=== PATIENT | female | born 1965 | race Caucasian/White ===

== ENCOUNTER 2017-01-10 06:51 | Day surgery (SDC) | payer MEDICAID ==
[~2017-01-10 06:51] MED LIST: Lactated Ringers 1,000 ML IV SCH; Lidocaine 1%/Sod Bicarbonate in NS 8.4% 1 ML Syringe IV PRN; Sodium Chloride 0.9% 10 ML Syringe FLUSH PRN
--- NOTE | 2017-01-10 07:24 | PCM.PREANE ---
Preanesthetic Assessment - Anesthesia/Transfusion/Family Hx Anesthesia History: Prior Anesthesia Without Reaction Family History of Anesthesia Reaction: No Transfusion History: No Prior Transfusion(s) - Review of Systems General: No Symptoms Pulmonary: No Symptoms, Cough (asthma bronchitis) Cardiovascular: No Symptoms, Other (heart dr said heart beats too fast and too slow at times) Gastrointestinal: Abdominal Pain, Diarrhea (usually) Neurological: Seizure (not on meds- she flushed them) Other: Reports: Diabetes, Liver Problems (fatty ) - Physical Assessment NPO Status Date: 01/09/17 NPO Status Time: 21:00 Pulse: 81 O2 Sat by Pulse Oximetry: 94 Respiratory Rate: 16 Blood Pressure: 135/73 Temperature: 99 F Height: 5 ft 4 in Weight: 115.666 kg ASA Class: 3 Mental Status: Alert & Oriented x3 Airway Class: Mallampati = 1 Dentition: Reports: Dentures (top) Thyro-Mental Finger Breadths: 3 Mouth Opening Finger Breadths: 3 ROM/Head Extension: Full Lungs: Clear to Auscultation, Normal Respiratory Effort, Decreased Breath Sounds Cardiovascular: Regular Rate, Regular Rhythm - Allergies Allergies/Adverse Reactions: Allergies Allergy/AdvReac Type Severity Reaction Status Date / Time Iodinated Contrast- Oral and Allergy Severe Airway Verified 01/07/17 12:59 IV Dye Tightness [Iodinated Contrast Media - IV Dye] alcohol Allergy Cannot Verified 01/07/17 12:59 Remember amoxicillin trihydrate Allergy Airway Verified 01/07/17 12:59 [From Augmentin] Tightness aspirin Allergy Airway Verified 01/07/17 12:59 Tightness bee venom protein (honey bee) Allergy Cannot Verified 01/07/17 12:59 Remember cefuroxime axetil Allergy Airway Verified 01/07/17 12:59 [From Ceftin] Tightness cephalexin monohydrate Allergy Airway Verified 01/07/17 12:59 [From Keflex] Tightness ciprofloxacin [From Cipro] Allergy Airway Verified 01/07/17 12:59 Tightness ciprofloxacin HCl Allergy Airway Verified 01/07/17 12:59 [From Cipro] Tightness doxycycline Allergy Airway Verified 01/07/17 12:59 Tightness honey Allergy Hives Verified 01/07/17 12:59 latex Allergy Airway Verified 01/07/17 12:59 Tightness metronidazole [From Flagyl] Allergy Airway Verified 01/07/17 12:59 Tightness nitrofurantoin Allergy Airway Verified 01/07/17 12:59 [From Macrobid] Tightness nitrofurantoin Allergy Airway Verified 01/07/17 12:59 macrocrystalline Tightness [From Macrobid] Penicillins Allergy Airway Verified 01/07/17 12:59 Tightness perfume Allergy Cannot Verified 01/07/17 12:59 Remember potassium clavulanate Allergy Airway Verified 01/07/17 12:59 [From Augmentin] Tightness prednisone Allergy Cannot Verified 01/07/17 12:59 Remember Gnfsgti-Muj-Yjm Reductase Allergy Cannot Verified 01/07/17 12:59 Inhibitor Remember strawberry [[place]] Allergy Airway Verified 01/07/17 12:59 Tightness sulfamethoxazole Allergy Airway Verified 01/07/17 12:59 [From Bactrim] Tightness tetracycline [Tetracycline] Allergy Airway Verified 01/07/17 12:59 Tightness trimethoprim [From Bactrim] Allergy Airway Verified 01/07/17 12:59 Tightness wool Allergy Cannot Verified 01/07/17 12:59 Remember deodorants Allergy Cannot Uncoded 01/07/17 12:59 Remember sausage Allergy Cannot Uncoded 01/07/17 12:59 Remember shampoo Allergy Cannot Uncoded 01/07/17 12:59 Remember - Blood Blood Available: No - Anesthesia Plan Pre-Op Medication Ordered: Beta Elpidio Beta Elpidio: Metoprolol Med Last Dose Date: 01/10/17 Med Last Dose Time: 06:00 - Acknowledgements Anesthesia Type Planned: MAC Pt an Appropriate Candidate for the Planned Anesthesia: Yes Alternatives and Risks of Anesthesia Discussed w Pt/Guardian: Yes Pt/Guardian Understands and Agrees with Anesthesia Plan: Yes PreAnesthesia Questionnaire HEENT History: Reports: Impaired Vision, Other (See Below) Other HEENT History: patient has upper denture and glasses Cardiovascular History: Reports: High Cholesterol, Hypertension, Other (See Below) Other Cardiovascular History: chest pain, peripheral artery disease Respiratory History: Reports: Asthma, COPD, SOB Gastrointestinal History: Reports: GERD, Other (See Below) Other Gastrointestinal History: gastric ulcers, rectal bleeding, abdominal pain , fatty liver infiltrate Genitourinary History: Reports: Other (See Below) Other Genitourinary History: perineal pain 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 Musculoskeletal History: Reports: Fibromyalgia, Other (See Below) Other Musculoskeletal History: carpal tunnel syndrome Neurological History: Reports: Migraines, Neuropathy, Peripheral, Seizure Psychiatric History: Reports: Panic Attack Endocrine/Metabolic History: Reports: Diabetes, Type II Hematologic History: Reports: None Immunologic History: Reports: None Oncologic (Cancer) History: Reports: Cervix Dermatologic History: Reports: None - Past Surgical History Head Surgeries/Procedures: Reports: None GI Surgical History: Reports: None Female Surgical History: Reports: Lithotripsy/ESWL, Tubal Ligation, Other ( See Below) (kidney surgery-stents - cancer cut off cervix- IUD surgically removed) Neurological Surgical History: Reports: None Oncologic Surgical History: Reports: None Dermatological Surgical History: Reports: None - SUBSTANCE USE Smoking Status *Q: Former Smoker (quit 3 weeks ago) Tobacco Use Within Last Twelve Months: Cigarettes Second Hand Smoke Exposure: Yes Days Per Week of Alcohol Use: 0 Recreational Drug Use History: No - HOME MEDS Home Medications: Home Meds Ranitidine [Zantac] 150 mg PO DAILY #4 tab 09/24/15 [Rx] Albuterol Sulfate 1 dose INH QID 01/07/17 [History] Albuterol Sulfate [Proair Hfa] 2 puff INH Q4H PRN 01/07/17 [History] DULoxetine [Cymbalta] 30 mg PO DAILY 01/07/17 [History] EPINEPHrine [Epipen] 1 dose IM ASDIRECTED PRN 01/07/17 [History] Fish Oil/[place]-3 Fatty Acids [Fish Oil 1,000 MG] 2 g PO DAILY 01/07/17 [History] Furosemide [Lasix] 20 mg PO DAILY PRN 01/07/17 [History] Gabapentin [Neurontin] 900 mg PO TID 01/07/17 [History] Inulin [Fiber Choice] 2 tab PO DAILY 01/07/17 [History] Metoprolol Tartrate [Lopressor] 100 mg PO BID 01/07/17 [History] Varenicline Tartrate [Chantix] 1 tab PO ASDIRECTED 01/07/17 [History] atorvaSTATin [Lipitor] 40 mg PO DAILY 01/07/17 [History] diphenhydrAMINE HCl [Benadryl] 50 mg PO BEDTIME 01/07/17 [History] sitaGLIPtin Phos/Metformin HCl [Janumet 50-1,000 MG] 1 tab PO BID 01/07/17 [ History] - CURRENT (IN HOUSE) MEDS Current Meds: Current Medications Lactated Ringer's (Ringers, Lactated) 1,000 mls @ 125 mls/hr IV ASDIRECTED BETTINA Stop: 01/10/17 23:00 Lidocaine/Sodium Bicarbonate (Buffered Lidocaine 1% In Ns 8.4%) 0.25 ml IV ONETIME PRN PRN Reason: Prior to IV Start Stop: 01/10/17 18:00 Sodium Chloride (Saline Flush) 10 ml FLUSH ASDIRECTED PRN PRN Reason: Keep Vein Open Stop: 01/10/17 18:00
[2017-01-10] MEDS ORDERED: Lidocaine 1% 4 ML ONE (07:58)
[2017-01-10] MEDS ORDERED: fentaNYL 100 MCG/2 ML SDV ONE (07:59)
[2017-01-10] MEDS ORDERED: Midazolam 1 MG/ML 2 ML SDV ONE (07:59)
[2017-01-10] MEDS ORDERED: Propofol 200 MG/20 ML SDV ONE ×3 (07:59→09:00)
[2017-01-10] MEDS ORDERED: Ondansetron 4 MG/2 ML SDV IVPUSH PRN (08:54)
--- NOTE | 2017-01-10 08:55 | PCM48HPAN ---
Post Anesthesia Note - EVALUATION WITHIN 48HRS OF ANESTHETIC Vital Signs in Normal Range: Yes Patient Participated in Evaluation: Yes Respiratory Function Stable: Yes Airway Patent: Yes Cardiovascular Function Stable: Yes Hydration Status Stable: Yes Pain Control Satisfactory: Yes Nausea and Vomiting Control Satisfactory: Yes Mental Status Recovered: Yes
[2017-01-10 10:00] VITALS: BP 111/77
--- NOTE | 2017-01-10 13:35 | OR ---
DATE OF OPERATION: 01/10/2017 SURGEON: Santosh Reynoso MD PREOPERATIVE DIAGNOSIS: Gastroesophageal reflux disease. POSTOPERATIVE DIAGNOSIS: Gastroesophageal reflux disease. OPERATION PERFORMED: Esophagogastroduodenoscopy with biopsy. FINDINGS: Normal second portion of the duodenum, duodenal bulb, and pyloric channel. Antrum was only incompletely seen, would not expand, felt to be due to her obesity. A blind biopsy was taken of the antrum. Body, cardia and fundus of the stomach were viewed and J-maneuver was done and did not show any pathology. A sliding hiatal hernia was noted. GE junction was located at 40 cm and did not see any acute process. Biopsies of GE junction were taken. The rest of the esophagus was normal. ANESTHESIA: Procedure done under IV sedation. DESCRIPTION OF PROCEDURE: The patient was taken to the operating room, placed in a supine position, connected to monitoring equipment, given IV sedation, and placed in left lateral position. Bite block was inserted and video Olympus gastroscope placed in a posterior oropharynx, under direct vision threaded past the cricopharyngeus, down the esophagus and into the stomach. The stomach was insufflated, and the scope passed through the pylorus to the second portion of the duodenum. Second portion of the duodenum, duodenal bulb, and pyloric channel were unremarkable. Antrum would not completely expand. Biopsies were taken. Body, cardia, and fundus of the stomach were viewed and J-maneuver was performed showing a sliding hiatal hernia. Scope was withdrawn to the GE junction, which did not show any acute disease, and this was biopsied. This was located at 40 cm. Rest of the esophagus viewed as the scope was withdrawn. The patient tolerated the procedure. Specimen sent to pathology in a labeled container. IV sedation continued for colonoscopy. ESTIMATED BLOOD LOSS: MMODAL /[id number]
--- NOTE | 2017-01-10 13:35 | OR ---
DATE OF OPERATION: 01/10/2017 SURGEON: Santosh Reynoso MD PREOPERATIVE DIAGNOSIS: Change in bowel habits. POSTOPERATIVE DIAGNOSIS: Change in bowel habits. OPERATION PERFORMED: Colonoscopy to the ileocecal valve. FINDINGS: Occasional diverticula in the sigmoid colon. Did not see any angiodysplasias, neoplasias, large tumor masses, ulcerations, or notable hemorrhoids. ANESTHESIA: Procedure done under IV sedation. DESCRIPTION OF PROCEDURE: The patient was taken to the operating room, having been given IV sedation, connected to monitoring equipment for upper GI endoscopy. The sedation was continued for colonoscopy. She was placed in the left lateral position. Perianal area was unremarkable. Rectal exam showed good sphincter tone. A video Olympus colonoscope was then introduced into the rectum and threaded up to the ileocecal valve. Could not introduce it into the cecum because cecum was filled full of colonic effluence with a lot of solid fecal matter that could not be aspirated. The prep was poor. [place] cleansing score grade B, especially in the cecum and in the rectum. Scope was then slowly withdrawn showing the ileocecal valve, the ascending colon, transverse colon, descending colon, sigmoid colon, and rectum. The patient tolerated the procedure and was sent to recovery room in a stable condition to be followed up in the clinic. ESTIMATED BLOOD LOSS: MMODAL /[id number]
== END 2017-01-10 09:45 | disposition home or self-care (01) ==
LOC: JD.SDS 06:51
PROVIDERS: ATTEND Surgery
DX: K57.30 Diverticulosis of large intestine without perforation or abscess without bleeding (principal); K44.9 Diaphragmatic hernia without obstruction or gangrene; I10 Essential (primary) hypertension; E11.9 Type 2 diabetes mellitus without complications; K21.9 Gastro-esophageal reflux disease without esophagitis; J44.9 Chronic obstructive pulmonary disease, unspecified; E78.00 Pure hypercholesterolemia, unspecified; Z88.0 Allergy status to penicillin; Z88.1 Allergy status to other antibiotic agents; Z88.8 Allergy status to other drugs, medicaments and biological substances; Z91.041 Radiographic dye allergy status; Z91.030 Bee allergy status; Z91.040 Latex allergy status; Z91.018 Allergy to other foods; Z91.09 Other allergy status, other than to drugs and biological substances; Z98.890 Other specified postprocedural states; Z87.891 Personal history of nicotine dependence; Z98.51 Tubal ligation status; Z79.4 Long term (current) use of insulin; Z79.899 Other long term (current) drug therapy
CPT/HCPCS: 43239; 45378; J2250; J3010; J7120; 00810; J2704

== ENCOUNTER → 2017-03-09 | Day surgery (SDC) | payer MEDICAID ==
[~2017-03-09] MED LIST changes: +Albuterol 0.083% 2.5 MG/3 ML Neb Soln NEB ONE; +Albuterol 6.7 GM Inhaler INH PRN; +Albuterol/Ipratropium 3.0-0.5 MG/3 ML Neb Soln NEB PRN; +Clindamycin Phosphate 900 MG in Dextrose 5% in Water 100 ML IV ONE; +DULOXETINE 30 MG PO SCH; +Dexamethasone 4 MG/ML 5 ML MDV ONE; +Gabapentin 300 MG Cap PO SCH; +Gentamicin 400 MG in Dextrose 5% in Water 100 ML IV ONE; +Haloperidol Lactate 5 MG/ML SDV IVPUSH ONE; +JANUMET PO SCH; +Ketamine 500 mg/10 ML MDV ONE; +Ketorolac 30 MG/ML SDV ONE; +Lactated Ringers 1,000 ML ONE; +Lidocaine 1% with EPINEPHrine 1:100,000 20 ML MDV ONE; +Midazolam 1 MG/ML 2 ML SDV IVPUSH PRN; +Midazolam 1 MG/ML 2 ML SDV ONE; +Neostigmine Methylsulfate 1 MG/ML 5 ML Syringe ONE; +Non-Formulary Medication 1 Each (Sitagliptin Phos/Metformin Hcl [Janumet 50-1,000 Mg] 1 TA PO SCH; +Ondansetron 4 MG/2 ML SDV IVPUSH PRN; +Ondansetron 4 MG/2 ML SDV ONE; +Pantoprazole 40 MG Tab.CR PO SCH; +Phenylephrine/Normal Saline 100 MCG/ML 10 ML Syringe ONE; +Propofol 200 MG/20 ML SDV ONE; +Rocuronium 50 MG/5 ML Vial ONE; +Saxagliptin 5 MG Tab PO SCH; +VARENICLINE TARTRATE 1 MG PO SCH; +diphenhydrAMINE 50 MG Cap PO SCH; +diphenhydrAMINE 50 MG/ML SDV IVPUSH PRN; +fentaNYL 100 MCG/2 ML SDV IVPUSH PRN; +fentaNYL 250 MCG/5 ML SDV ONE; +metFORMIN 500 MG Tab PO SCH
--- NOTE | 2017-03-09 07:50 | PCM.PREANE ---
Preanesthetic Assessment - Anesthesia/Transfusion/Family Hx Anesthesia History: Prior Anesthesia Without Reaction Family History of Anesthesia Reaction: No Transfusion History: No Prior Transfusion(s) Intubation History: Unknown - Review of Systems General: No Symptoms Pulmonary: No Symptoms (COPD/ current smoker: 0.5PPD times 36 yrs./ Past 3 months 2-3 cigarettes per week.( last took inhaler/nebulizer last night)) Cardiovascular: No Symptoms (Peripheral Artery Disease), Palpitations, Dyspnea on Exertion Gastrointestinal: No Symptoms (history of hiatal hernia/GERD) Neurological: No Symptoms (history of Raynauds disease), Headache (History of epilepsy, history of migraine headaches), Numbness (Diabetic neuropathies noted. ), Seizure (history of epilepsy- last seizure is one yr ago.), Tingling (All four extremities all the time per patient) Other: Reports: Diabetes (AM blood sugar= ), Neck Pain (some neck tenderness noted with extension), Anxiety - Physical Assessment NPO Status Date: 03/08/17 NPO Status Time: 21:00 Pulse: 81 O2 Sat by Pulse Oximetry: 95 Respiratory Rate: 16 Blood Pressure: 140/84 Temperature: 36.5 C Height: 1.63 m Weight: 115.575 kg ASA Class: 3 Mental Status: Alert & Oriented x3 Airway Class: Mallampati = 3 Dentition: Reports: Dentures (upper), Broken Tooth/Teeth (poor dentition noted on the bottom) Thyro-Mental Finger Breadths: 3 Mouth Opening Finger Breadths: 3 ROM/Head Extension: Full (some neck tenderness noted) Lungs: Clear to Auscultation, Normal Respiratory Effort, Decreased Breath Sounds Cardiovascular: Regular Rate, Regular Rhythm, No Murmurs - Lab Values: Labs reviewed and noted and within acceptable ranges to proceed with scheduled procedure. - Imaging/EKG Impressions: EKG: ST rate =121 - Allergies Allergies/Adverse Reactions: Allergies Allergy/AdvReac Type Severity Reaction Status Date / Time Iodinated Contrast- Oral and Allergy Severe Airway Verified 03/08/17 14:29 IV Dye Tightness [Iodinated Contrast Media - IV Dye] alcohol Allergy Cannot Verified 03/08/17 14:29 Remember amoxicillin trihydrate Allergy Airway Verified 03/08/17 14:29 [From Augmentin] Tightness aspirin Allergy Airway Verified 03/08/17 14:29 Tightness bee venom protein (honey bee) Allergy Cannot Verified 03/08/17 14:29 Remember cefuroxime axetil Allergy Airway Verified 03/08/17 14:29 [From Ceftin] Tightness cephalexin monohydrate Allergy Airway Verified 03/08/17 14:29 [From Keflex] Tightness ciprofloxacin [From Cipro] Allergy Airway Verified 03/08/17 14:29 Tightness ciprofloxacin HCl Allergy Airway Verified 03/08/17 14:29 [From Cipro] Tightness doxycycline Allergy Airway Verified 03/08/17 14:29 Tightness honey Allergy Hives Verified 03/08/17 14:29 latex Allergy Airway Verified 03/08/17 14:29 Tightness metronidazole [From Flagyl] Allergy Airway Verified 03/08/17 14:29 Tightness nitrofurantoin Allergy Airway Verified 03/08/17 14:29 [From Macrobid] Tightness nitrofurantoin Allergy Airway Verified 03/08/17 14:29 macrocrystalline Tightness [From Macrobid] Penicillins Allergy Airway Verified 03/08/17 14:29 Tightness perfume Allergy Cannot Verified 03/08/17 14:29 Remember potassium clavulanate Allergy Airway Verified 03/08/17 14:29 [From Augmentin] Tightness prednisone Allergy Cannot Verified 03/08/17 14:29 Remember soap Allergy Cannot Verified 03/08/17 14:29 Remember Flcsdma-Lji-Swm Reductase Allergy Cannot Verified 03/08/17 14:29 Inhibitor Remember strawberry [[place]] Allergy Airway Verified 03/08/17 14:29 Tightness sulfamethoxazole Allergy Airway Verified 03/08/17 14:29 [From Bactrim] Tightness tetracycline [Tetracycline] Allergy Airway Verified 03/08/17 14:29 Tightness trimethoprim [From Bactrim] Allergy Airway Verified 03/08/17 14:29 Tightness wool Allergy Cannot Verified 03/08/17 14:29 Remember deodorants Allergy Cannot Uncoded 03/08/17 14:29 Remember metals Allergy Cannot Uncoded 03/08/17 14:29 Remember sausage Allergy Cannot Uncoded 03/08/17 14:29 Remember shampoo Allergy Cannot Uncoded 03/08/17 14:29 Remember - Anesthesia Plan Pre-Op Medication Ordered: Beta Elpidio Beta Elpidio: Metoprolol Med Last Dose Date: 03/09/17 Med Last Dose Time: 05:00 - Acknowledgements Anesthesia Type Planned: General Anesthesia Pt an Appropriate Candidate for the Planned Anesthesia: Yes Alternatives and Risks of Anesthesia Discussed w Pt/Guardian: Yes Pt/Guardian Understands and Agrees with Anesthesia Plan: Yes PreAnesthesia Questionnaire HEENT History: Reports: Impaired Vision, Other (See Below) Other HEENT History: patient has upper denture and glasses Cardiovascular History: Reports: High Cholesterol, Hypertension, Other (See Below) Other Cardiovascular History: chest pain, peripheral artery disease Respiratory History: Reports: Asthma, COPD, SOB Gastrointestinal History: Reports: Diverticulosis, GERD, Other (See Below) Other Gastrointestinal History: gastric ulcers, rectal bleeding, abdominal pain , fatty liver infiltrate Genitourinary History: Reports: Renal Calculus, Other (See Below) Other Genitourinary History: perineal pain 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, 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 Musculoskeletal History: Reports: Fibromyalgia, Other (See Below) Other Musculoskeletal History: carpal tunnel syndrome Neurological History: Reports: Migraines, Neuropathy, Peripheral, Seizure Psychiatric History: Reports: Anxiety, Panic Attack Endocrine/Metabolic History: Reports: Diabetes, Type II Hematologic History: Reports: None Immunologic History: Reports: None Oncologic (Cancer) History: Reports: Cervix Dermatologic History: Reports: None - Past Surgical History Head Surgeries/Procedures: Reports: None Cardiovascular Surgical History: Reports: None Respiratory Surgical History: Reports: None GI Surgical History: Reports: Colonoscopy, EGD Female Surgical History: Reports: Lithotripsy/ESWL, Tubal Ligation Endocrine Surgical History: Reports: None Neurological Surgical History: Reports: None Oncologic Surgical History: Reports: None Dermatological Surgical History: Reports: None - SUBSTANCE USE Smoking Status *Q: Current Every Day Smoker Tobacco Use Within Last Twelve Months: Cigarettes, Other (See Below) Other Tobacco Use Within Last Twelve Months: vapes Second Hand Smoke Exposure: Yes Days Per Week of Alcohol Use: 0 Recreational Drug Use History: No - HOME MEDS Home Medications: Home Meds Albuterol Sulfate [Proair Hfa] 2 puff INH Q4H PRN 01/07/17 [History] DULoxetine [Cymbalta] 30 mg PO DAILY 01/07/17 [History] EPINEPHrine [Epipen] 1 dose IM ASDIRECTED PRN 01/07/17 [History] Fish Oil/[place]-3 Fatty Acids [Fish Oil 1,000 MG] 2 g PO DAILY 01/07/17 [History] Furosemide [Lasix] 20 mg PO DAILY PRN 01/07/17 [History] Gabapentin [Neurontin] 900 mg PO TID 01/07/17 [History] Inulin [[place]] 3 gm PO DAILY 01/07/17 [History] Metoprolol Tartrate [Lopressor] 100 mg PO BID 01/07/17 [History] Varenicline Tartrate [Chantix] 1 mg PO ASDIRECTED 01/07/17 [History] atorvaSTATin [Lipitor] 40 mg PO DAILY 01/07/17 [History] diphenhydrAMINE HCl [Benadryl] 50 mg PO BEDTIME 01/07/17 [History] sitaGLIPtin Phos/Metformin HCl [Janumet 50-1,000 MG] 1 tab PO BID 01/07/17 [ History] Methylcellulose [Citrucel] 500 mg PO DAILY 03/08/17 [History] Pantoprazole Sodium [Protonix] 20 mg PO DAILY 03/08/17 [History] - CURRENT (IN HOUSE) MEDS Current Meds: Current Medications Lactated Ringer's (Ringers, Lactated) 1,000 mls @ 125 mls/hr IV ASDIRECTED BETTINA Stop: 03/09/17 23:00 Clindamycin Phosphate 900 mg/ (Sodium Chloride) 106 mls @ 100 mls/hr IV ONETIME ONE Stop: 03/09/17 08:47 Lidocaine/Sodium Bicarbonate (Buffered Lidocaine 1% In Ns 8.4%) 0.25 ml IV ONETIME PRN PRN Reason: Prior to IV Start Stop: 03/09/17 18:00 Sodium Chloride (Saline Flush) 10 ml FLUSH ASDIRECTED PRN PRN Reason: Keep Vein Open Stop: 03/09/17 18:00 Discontinued Medications Dexamethasone (Dexamethasone) Confirm Administered Dose 20 mg .ROUTE .STK-MED ONE Stop: 03/09/17 07:31 Fentanyl (Sublimaze) Confirm Administered Dose 250 mcg .ROUTE .STK-MED ONE Stop: 03/09/17 07:30 Lactated Ringer's (Ringers, Lactated) Confirm Administered Dose 1,000 mls @ as directed .ROUTE .STK-MED ONE Stop: 03/09/17 07:30 Midazolam HCl (Versed 1 Mg/Ml) Confirm Administered Dose 2 mg .ROUTE .STK-MED ONE Stop: 03/09/17 07:30 Ondansetron HCl (Zofran) Confirm Administered Dose 4 mg .ROUTE .STK-MED ONE Stop: 03/09/17 07:30 Propofol (Diprivan 20 Ml) Confirm Administered Dose 400 mg .ROUTE .STK-MED ONE Stop: 03/09/17 07:30 Rocuronium [place] (Zemuron) Confirm Administered Dose 50 mg .ROUTE .STK-MED ONE Stop: 03/09/17 07:30
--- NOTE | 2017-03-09 11:59 | PCM.OPNOTE ---
- General Post-Op/Procedure Note Date of Surgery/Procedure: 03/09/17 Operative Procedure(s): Total vaginal hysterectomy Findings: Mobile, anteverted uterus. Grossly normal in appearance. Ovaries not seen well nor fallopian tubes. Pre Op Diagnosis: Simple hyperplasia without atypia. BMI 43. COPD. DM Type 2. Asthma Post-Op Diagnosis: Same Anesthesia Technique: General ET Tube Primary Surgeon: Katherine Chi Secondary Surgeon: Rebekah Coleman Anesthesia Provider: Angela Parsons Reason Piping Manager Was Necessary: Morbid obesity. Aid in retraction, visualization, speed/safety of case. Pathology: Cervix and uterus sent to pathology for further evaluation Fluid Replacement, Intraop: 2,300 Output, Urine Amount: 225 EBL in mLs: 100 Complications: None Condition: Good Free Text/Narrative:: The risks, benefits, indications, potential complications, and alternatives were explained to the patient and informed consent obtained. The patient was taken to the Operating Room where general anesthesia was induced without complication and found to be adequate. The patient was placed in dorsal lithotomy with Memo stirrups and an exam under anesthesia performed. The patient was then prepped and draped in the usual sterile fashion. A cruz catheter was placed in the bladder. A weighted speculum was placed in the vagina, and the cervix was grasped with a double tooth tenaculum. The cervix was injected circumferentially with ~15 cc of 1% lidocaine with dilute epinephrine. The cervix was then circumferentially incised with a scalpel. The posterior cul-de-sac was entered sharply without difficulty. A 0-Vicryl pop-off suture was placed posteriorly to include the posterior vaginal mucosa and the posterior peritoneum. The short weighted speculum was replaced with a long weighted speculum into the peritoneal cavity posteriorly. The bladder was dissected away from the pubovesical cervical fascia anteriorly with a sponge and blunt dissection. The uterosacral ligaments were grasped on either side, cauterized with the Ligasure, and then transected. A raytec was used for further blunt dissection of the bladder away from the pubovesical cervical fascia and then the anterior cul de sac was entered sharply with Metzenbaum scissors. The cardinal ligaments were then serially clamped on both sides, cauterized, and transected in similar fashion with the Ligasure. The uterine arteries were then clamped, cauterized, and transected. Hemostasis was adequate. Both cornua were then clamped, cauterized , and transected and the uterus was removed. The posterior peritoneum was then closed with a running, locked 0 vicryl. Next, the vaginal cuff was closed in a running locked fashion with 0-Vicryl. Hemostasis was noted. All sponge, lap, needle, and instrument counts were correct x 2. The patient tolerated the procedure well and there were no complications.
--- NOTE | 2017-03-09 12:05 | PCM.POSTAN ---
POST ANESTHESIA ASSESSMENT - MENTAL STATUS Mental Status: Somnolent - VITAL SIGNS Pulse Rate: 77 SaO2: 99 Resp Rate: 14 Blood Pressure: 103/65 Temperature: 37.3 C - RESPIRATORY Respiratory Status: Respiratory Rate WNL, Airway Patent, O2 Saturation Stable, Supplemental Oxygen - CARDIOVASCULAR CV Status: Pulse Rate WNL, Blood Pressure Stable - GASTROINTESTINAL GI Status: No Symptoms - PAIN Pain Score: 0 - POST OP HYDRATION Hydration Status: Adequate & Stable
[2017-03-09] MEDS: HYDROmorphone 0.5 MG/0.5 ML Syringe IVPUSH PRN ×2 (12:17→12:35)
[2017-03-09] MEDS: Acetaminophen/oxyCODONE 325-5 MG Tab PO PRN ×2 (15:04→20:19)
[2017-03-09] MEDS: Docusate Sodium 100 MG Cap PO SCH (20:11)
[2017-03-09] MEDS: METOPROLOL TARTRATE 100 MG PO SCH (20:26)
[2017-03-09] MEDS: VARENICLINE TARTRATE 1 MG PO SCH (20:28)
[2017-03-10] MEDS: Acetaminophen/oxyCODONE 325-5 MG Tab PO PRN ×3 (01:47→11:01)
--- NOTE | 2017-03-10 06:45 | PCM.SURGPN ---
- General Info Date of Service: 03/10/17 POD#: 1 Functional Status: Reports: Pain Controlled, Tolerating Diet, Ambulating - Review of Systems General: Reports: No Symptoms Pulmonary: Reports: No Symptoms Cardiovascular: Reports: No Symptoms Gastrointestinal: Reports: Abdominal Pain (manageable) Genitourinary: Reports: Other (Some difficulty with urination) - Patient Data Vitals - Most Recent: Last Vital Signs Temp 36.5 C 03/10/17 03:15 Pulse 86 03/10/17 03:15 Resp 19 03/10/17 03:15 BP 124/67 03/10/17 03:15 Pulse Ox 91 L 03/10/17 03:15 Weight - Most Recent: 118.932 kg I&O - Last 24 Hours: Intake & Output 03/09/17 03/09/17 03/10/17 14:59 22:59 06:59 Intake Total 2500 300 1400 Output Total 550 350 400 Balance 1950 -50 1000 Lab Results Last 24 Hrs: Laboratory Results - last 24 hr 03/09/17 03/09/17 03/09/17 Range/Units 07:50 07:50 07:50 WBC 8.96 (3.98-10.04) K/mm3 RBC 4.73 (3.98-5.22) M/mm3 Hgb 14.6 (11.2-15.7) gm/L Hct 43.0 (34.1-44.9) % MCV 90.9 (79.4-94.8) fl MCH 30.9 (25.6-32.2) pg MCHC 34.0 (32.2-35.5) g/dl RDW Std Deviation 45.9 (36.4-46.3) fL Plt Count 212 (182-369) K/mm3 MPV 10.4 (9.4-12.3) fl Neut % (Auto) 46.4 (34.0-71.1) % Lymph % (Auto) 41.9 (19.3-51.7) % [place] % (Auto) 4.7 (4.7-12.5) % Eos % (Auto) 6.5 H (0.7-5.8) Baso % (Auto) 0.4 (0.1-1.2) % Neut # (Auto) 4.16 (1.56-6.13) K/mm3 Lymph # (Auto) 3.75 H (1.18-3.74) K/mm3 [place] # (Auto) 0.42 H (0.24-0.36) K/mm3 Eos # (Auto) 0.58 H (0.04-0.36) K/mm3 Baso # (Auto) 0.04 (0.01-0.08) K/mm3 Sodium 140 (136-145) mEq/L Potassium 4.1 (3.5-5.1) mEq/L Chloride 102 (98-107) mEq/L Carbon Dioxide 28 (21-32) mEq/L Anion Gap 14.1 (5-15) BUN 11 (7-18) mg/dL Creatinine 0.8 (0.55-1.02) mg/dL Est Cr Clr Drug Dosing 72.65 mL/min Estimated GFR (MDRD) > 60 (>60) mL/min BUN/Creatinine Ratio 13.8 L (14-18) Glucose 141 H (74-106) mg/dL POC Glucose (70-105) mg/dL Calcium 9.6 (8.5-10.1) mg/dL Blood Type O POSITIVE Gel Antibody Screen Negative 03/09/17 03/09/17 03/09/17 Range/Units 07:53 16:30 21:19 WBC (3.98-10.04) K/mm3 RBC (3.98-5.22) M/mm3 Hgb (11.2-15.7) gm/L Hct (34.1-44.9) % MCV (79.4-94.8) fl MCH (25.6-32.2) pg MCHC (32.2-35.5) g/dl RDW Std Deviation (36.4-46.3) fL Plt Count (182-369) K/mm3 MPV (9.4-12.3) fl Neut % (Auto) (34.0-71.1) % Lymph % (Auto) (19.3-51.7) % [place] % (Auto) (4.7-12.5) % Eos % (Auto) (0.7-5.8) Baso % (Auto) (0.1-1.2) % Neut # (Auto) (1.56-6.13) K/mm3 Lymph # (Auto) (1.18-3.74) K/mm3 [place] # (Auto) (0.24-0.36) K/mm3 Eos # (Auto) (0.04-0.36) K/mm3 Baso # (Auto) (0.01-0.08) K/mm3 Sodium (136-145) mEq/L Potassium (3.5-5.1) mEq/L Chloride (98-107) mEq/L Carbon Dioxide (21-32) mEq/L Anion Gap (5-15) BUN (7-18) mg/dL Creatinine (0.55-1.02) mg/dL Est Cr Clr Drug Dosing mL/min Estimated GFR (MDRD) (>60) mL/min BUN/Creatinine Ratio (14-18) Glucose (74-106) mg/dL POC Glucose 135 H 211 H 161 H (70-105) mg/dL Calcium (8.5-10.1) mg/dL Blood Type Gel Antibody Screen Med Orders - Current: Current Medications Albuterol (Proventil Hfa) 0 gm INH Q4H PRN PRN Reason: Pain Diphenhydramine HCl (Benadryl) 50 mg PO BEDTIME [facility] Last Admin: 03/09/17 19:12 Dose: 50 mg Docusate Sodium (Colace) 100 mg PO BID [facility] Last Admin: 03/09/17 20:11 Dose: Not Given Duloxetine HCl (Cymbalta) 30 mg PO DAILY [facility] Gabapentin (Neurontin) 900 mg PO TID [facility] Last Admin: 03/09/17 20:25 Dose: 900 mg Metoprolol Tartrate (Lopressor) 100 mg PO BID [facility] Last Admin: 03/09/17 20:26 Dose: 100 mg Varenicline Tartrate (Chantix) 1 Mg Tab Own Med 0 mg PO BID [facility] Last Admin: 03/09/17 20:28 Dose: 1 mg Ondansetron HCl (Zofran) 4 mg IVPUSH Q4H PRN PRN Reason: Nausea/Vomiting Oxycodone/Acetaminophen (Percocet 325-5 Mg) 2 tab PO Q4H PRN PRN Reason: Pain (moderate 4-6) Last Admin: 03/10/17 06:02 Dose: 2 tab Pantoprazole Sodium (Protonix) 40 mg PO ACBREAKFAST [facility] Janumet 50 Mg/1000 (Mg Tab Own Med) 0 each PO BIDMEALS [facility] Atorvastatin 40 Mg * (*Own Med) 0 each PO BEDTIME [facility] Last Admin: 03/09/17 20:29 Dose: 1 each Sodium Chloride (Saline Flush) 10 ml FLUSH ASDIRECTED PRN PRN Reason: Keep Vein Open Discontinued Medications Albuterol (Proventil Neb Soln) 2.5 mg NEB ONETIME ONE Stop: 03/09/17 08:29 Last Admin: 03/09/17 08:51 Dose: 2.5 mg Albuterol/Ipratropium (Duoneb 3.0-0.5 Mg/3 Ml) 3 ml NEB ONETIME PRN PRN Reason: Shortness of Breath Stop: 03/09/17 18:00 Dexamethasone (Dexamethasone) Confirm Administered Dose 20 mg .ROUTE .STK-MED ONE Stop: 03/09/17 07:31 Diphenhydramine HCl (Benadryl) 25 mg IVPUSH Q6H PRN PRN Reason: Pruritis Diphenhydramine HCl (Benadryl) 50 mg PO BEDTIME [facility] Fentanyl (Sublimaze) Confirm Administered Dose 250 mcg .ROUTE .STK-MED ONE Stop: 03/09/17 07:30 Fentanyl (Sublimaze) 50 mcg IVPUSH Q5M PRN PRN Reason: Pain Stop: 03/09/17 18:00 Last Admin: 03/09/17 12:29 Dose: 50 mcg Gabapentin (Neurontin) 900 mg PO TID [facility] Last Admin: 03/09/17 14:57 Dose: 900 mg Glycopyrrolate () Confirm Administered Dose 1 mg .ROUTE .STK-MED ONE Stop: 03/09/17 11:49 Haloperidol Lactate (Haldol) 1 mg IVPUSH ONETIME ONE Stop: 03/09/17 12:01 Hydromorphone HCl (Dilaudid) 0.5 mg IVPUSH Q15M PRN PRN Reason: severe pain Stop: 03/09/17 18:00 Last Admin: 03/09/17 12:35 Dose: 0.5 mg Lactated Ringer's (Ringers, Lactated) 1,000 mls @ 125 mls/hr IV ASDIRECTED [facility] Stop: 03/09/17 23:00 Last Admin: 03/09/17 07:53 Dose: 125 mls/hr Lactated Ringer's (Ringers, Lactated) Confirm Administered Dose 1,000 mls @ as directed .ROUTE .STK-MED ONE Stop: 03/09/17 07:30 Clindamycin Phosphate 900 mg/ (Dextrose/Water) 106 mls @ 212 mls/hr IV ONETIME ONE Stop: 03/09/17 09:29 Last Admin: 03/09/17 08:19 Dose: 212 mls/hr Gentamicin Sulfate 400 mg/ (Dextrose/Water) 110 mls @ 110 mls/hr IV ONETIME ONE Stop: 03/09/17 10:29 Ketamine HCl (Ketalar) Confirm Administered Dose 500 mg .ROUTE .STK-MED ONE Stop: 03/09/17 10:45 Ketorolac Tromethamine (Toradol) Confirm Administered Dose 30 mg .ROUTE .STK- MED ONE Stop: 03/09/17 11:51 Lidocaine/Epinephrine (Xylocaine 1% With Epinephrine 1:100,000) Confirm Administered Dose 20 ml .ROUTE .STK-MED ONE Stop: 03/09/17 08:03 Last Admin: 03/09/17 10:05 Dose: 11 ml Lidocaine/Sodium Bicarbonate (Buffered Lidocaine 1% In Ns 8.4%) 0.25 ml IV ONETIME PRN PRN Reason: Prior to IV Start Stop: 03/09/17 18:00 Last Admin: 03/09/17 07:53 Dose: 0.25 ml Metformin HCl (Glucophage) 1,000 mg PO BIDMEALS [facility] Last Admin: 03/09/17 18:37 Dose: 1,000 mg Midazolam HCl (Versed 1 Mg/Ml) Confirm Administered Dose 2 mg .ROUTE .STK-MED ONE Stop: 03/09/17 07:30 Midazolam HCl (Versed 1 Mg/Ml) 2 mg IVPUSH ONETIME PRN PRN Reason: Sedation Stop: 03/09/17 18:00 Neostigmine Methylsulfate (Neostigmine) Confirm Administered Dose 5 mg .ROUTE .STK-MED ONE Stop: 03/09/17 11:49 Non-Formulary Medication (Sitagliptin Phos/Metformin Hcl [Janumet 50-1,000 Mg]) 1 tab PO BID [facility] Ondansetron HCl (Zofran) Confirm Administered Dose 4 mg .ROUTE .STK-MED ONE Stop: 03/09/17 07:30 Atorvastatin 40 Mg * (*Own Med) 0 each PO DAILY [facility] Phenylephrine HCl (Phenylephrine In Ns 100 Mcg/Ml) Confirm Administered Dose 1 mg .ROUTE .STK-MED ONE Stop: 03/09/17 10:04 Propofol (Diprivan 20 Ml) Confirm Administered Dose 400 mg .ROUTE .STK-MED ONE Stop: 03/09/17 07:30 Propofol (Diprivan 20 Ml) Confirm Administered Dose 600 mg .ROUTE .STK-MED ONE Stop: 03/09/17 10:11 Rocuronium [place] (Zemuron) Confirm Administered Dose 50 mg .ROUTE .STK-MED ONE Stop: 03/09/17 07:30 Saxagliptin Hydrochloride (Onglyza) 5 mg PO BIDMEALS [facility] Last Admin: 03/09/17 18:37 Dose: 5 mg Sodium Chloride (Saline Flush) 10 ml FLUSH ASDIRECTED PRN PRN Reason: Keep Vein Open Stop: 03/09/17 18:00 - Exam General: Alert, Oriented, Cooperative Lungs: Clear to Auscultation, Normal Respiratory Effort Cardiovascular: Regular Rate, Regular Rhythm GI/Abdominal Exam: Soft, Non-Tender Extremities: Normal Inspection Skin: Warm, Dry, Intact - Problem List & Annotations (1) Simple endometrial hyperplasia without atypia SNOMED Code(s): 171386836 Code(s): N85.01 - BENIGN ENDOMETRIAL HYPERPLASIA Status: Acute Current Visit: Yes (2) S/P vaginal hysterectomy SNOMED Code(s): 543709735 Code(s): Z90.710 - ACQUIRED ABSENCE OF BOTH CERVIX AND UTERUS Status: Acute Current Visit: Yes - Problem List Review Problem List Initiated/Reviewed/Updated: Yes - My Orders Last 24 Hours: Active Orders 24 hr Category Date Time Status Patient Status [ADT] Routine ADT 03/10/17 04:41 Active Antiembolic Devices [RC] BID Care 03/09/17 13:17 Active Blood Glucose Check, Bedside [RC] QIDACANDBED Care 03/09/17 13:17 Active Cooling Warming Measures [RC] ASDIRECTED Care 03/09/17 10:56 Active Intake and Output [RC] Q4HR Care 03/09/17 13:17 Active Notify Provider Intake and Out [RC] ASDIRECTED Care 03/09/17 13:17 Active Notify Provider Vital Signs [RC] ASDIRECTED Care 03/09/17 13:17 Active Notify Provider [RC] ASDIRECTED Care 03/09/17 10:56 Active Oxygen Therapy [RC] ASDIRECTED Care 03/09/17 10:55 Active Pulse Oximetry [RC] ASDIRECTED Care 03/09/17 10:55 Active RT Aerosol Therapy [RC] .PRN Care 03/09/17 10:57 Active RT Incentive Spirometry [RC] Q2HWA Care 03/09/17 13:17 Active Ready for Discharge [RC] PER UNIT ROUTINE Care 03/10/17 06:45 Ordered Remove [place] Catheter [Urinary Catheter Removal] [RC] Care 03/09/17 17:17 Active Per Unit Routine Up ad [place] [RC] PER UNIT ROUTINE Care 03/09/17 13:17 Active Vital Signs [RC] Q4HR Care 03/09/17 13:17 Active Regular Diet [DIET] Diet 03/09/17 Lunch Active CBC W/O DIFF,HEMOGRAM [HEME] AM Lab 03/10/17 05:11 Ordered Acetaminophen/oxyCODONE [Percocet 325-5 MG] Med 03/09/17 13:17 Active 2 tab PO Q4H PRN Albuterol [Proventil HFA] Med 03/09/17 11:47 Active 0 gm INH Q4H PRN DULoxetine [Cymbalta] Med 03/10/17 09:00 Active 30 mg PO DAILY Docusate Sodium [Colace] Med 03/09/17 21:00 Active 100 mg PO BID Gabapentin [Neurontin] Med 03/09/17 21:00 Active 900 mg PO TID Metoprolol Tartrate [Lopressor] Med 03/09/17 21:00 Active 100 mg PO BID Ondansetron [Zofran] Med 03/09/17 13:17 Active 4 mg IVPUSH Q4H PRN Pantoprazole [ProTONIX] Med 03/10/17 09:00 Active 40 mg PO ACBREAKFAST Patient's Own Medication [Ptom] Med 03/09/17 21:00 Active 0 each PO BEDTIME Patient's Own Medication [Ptom] Med 03/10/17 07:00 Active 0 each PO BIDMEALS Sodium Chloride 0.9% [Saline Flush] Med 03/09/17 13:17 Active 10 ml FLUSH ASDIRECTED PRN Varenicline Tartrate [Chantix] Med 03/09/17 21:00 Active 0 mg PO BID diphenhydrAMINE [Benadryl] Med 03/09/17 19:15 Active 50 mg PO BEDTIME Convert IV to Saline Lock [OM.PC] Routine Oth 03/09/17 13:17 Ordered Sequential Compression Device [OM.PC] Per Unit Routine Oth 03/09/17 13:17 Ordered Resuscitation Status Routine Resus Stat 03/09/17 11:54 Ordered Medication Orders Albuterol (Proventil Hfa) 0 gm INH Q4H PRN PRN Reason: Pain Diphenhydramine HCl (Benadryl) 50 mg PO BEDTIME [facility] Last Admin: 03/09/17 19:12 Dose: 50 mg Docusate Sodium (Colace) 100 mg PO BID [facility] Last Admin: 03/09/17 20:11 Dose: Not Given Duloxetine HCl (Cymbalta) 30 mg PO DAILY [facility] Gabapentin (Neurontin) 900 mg PO TID [facility] Last Admin: 03/09/17 20:25 Dose: 900 mg Metoprolol Tartrate (Lopressor) 100 mg PO BID [facility] Last Admin: 03/09/17 20:26 Dose: 100 mg Varenicline Tartrate (Chantix) 1 Mg Tab Own Med 0 mg PO BID [facility] Last Admin: 03/09/17 20:28 Dose: 1 mg Ondansetron HCl (Zofran) 4 mg IVPUSH Q4H PRN PRN Reason: Nausea/Vomiting Oxycodone/Acetaminophen (Percocet 325-5 Mg) 2 tab PO Q4H PRN PRN Reason: Pain (moderate 4-6) Last Admin: 03/10/17 06:02 Dose: 2 tab Admin: 03/10/17 01:47 Dose: 2 tab Admin: 03/09/17 20:19 Dose: 2 tab Admin: 03/09/17 15:04 Dose: 2 tab Pantoprazole Sodium (Protonix) 40 mg PO ACBREAKFAST [facility] Janumet 50 Mg/1000 (Mg Tab Own Med) 0 each PO BIDMEALS [facility] Atorvastatin 40 Mg * (*Own Med) 0 each PO BEDTIME [facility] Last Admin: 03/09/17 20:29 Dose: 1 each Sodium Chloride (Saline Flush) 10 ml FLUSH ASDIRECTED PRN PRN Reason: Keep Vein Open - Assessment Assessment (Free Text/Narrative):: 51 y/o woman POD#1 from [facility] for simple hyperplasia without atypia - Plan Plan (Free Text/Narrative):: * Has done relatively well overnight. Plan to discharge home today after able to void and CBC returns.
--- NOTE | 2017-03-10 06:46 | PCM.DCSUM1 ---
Discharge Summary - Discharge Data Discharge Date: 03/10/17 Discharge Disposition: Home, Self-Care 01 Condition: Good - Discharge Diagnosis/Problem(s) (1) Simple endometrial hyperplasia without atypia SNOMED Code(s): 887737178 ICD Code: N85.01 - BENIGN ENDOMETRIAL HYPERPLASIA Status: Acute Current Visit: Yes (2) S/P vaginal hysterectomy SNOMED Code(s): 454501962 ICD Code: Z90.710 - ACQUIRED ABSENCE OF BOTH CERVIX AND UTERUS Status: Acute Current Visit: Yes - Patient Summary/Data Operative Procedure(s) Performed: Total vaginal hysterectomy Complications: None Consults: None Recommended Follow-up Testing/Procedures: Follow up in 5-6 weeks for post op check Hospital Course: Patient admitted for planned TVH. This was uncomplicated. Given her multiple medical co-morbidities she was kept for an extended recovery. She did well and was discharged home on POD#1 - Patient Instructions Diet: Regular Diet as Tolerated Activity: No Lifting Over 10 Pounds Driving: Do Not Drive (while taking narcotics) Showering/Bathing: May Shower, No Tub Bathing/Swimming Notify Provider of: Fever, Increased Pain, Swelling and Redness, Drainage - Discharge Plan Prescriptions/Med Rec: Acetaminophen/oxyCODONE [Percocet 325-5 MG] 2 tab PO Q4H PRN #20 tablet PRN Reason: Pain Home Medications: Home Meds Albuterol Sulfate [Proair Hfa] 2 puff INH Q4H PRN 01/07/17 [History] DULoxetine [Cymbalta] 30 mg PO DAILY 01/07/17 [History] EPINEPHrine [Epipen] 1 dose IM ASDIRECTED PRN 01/07/17 [History] Fish Oil/[place]-3 Fatty Acids [Fish Oil 1,000 MG] 2 g PO DAILY 01/07/17 [History] Furosemide [Lasix] 20 mg PO DAILY PRN 01/07/17 [History] Gabapentin [Neurontin] 900 mg PO TID 01/07/17 [History] Inulin [Fiber Choice] 3 gm PO DAILY 01/07/17 [History] Metoprolol Tartrate [Lopressor] 100 mg PO BID 01/07/17 [History] Varenicline Tartrate [Chantix] 1 mg PO ASDIRECTED 01/07/17 [History] atorvaSTATin [Lipitor] 40 mg PO DAILY 01/07/17 [History] diphenhydrAMINE HCl [Benadryl] 50 mg PO BEDTIME 01/07/17 [History] sitaGLIPtin Phos/Metformin HCl [Janumet 50-1,000 MG] 1 tab PO BID 01/07/17 [ History] Methylcellulose [Citrucel] 500 mg PO DAILY 03/08/17 [History] Pantoprazole Sodium [Protonix] 20 mg PO DAILY 03/08/17 [History] Acetaminophen/oxyCODONE [Percocet 325-5 MG] 2 tab PO Q4H PRN #20 tablet [Rx] Patient Handouts: Hysterectomy Information, [id number] Referrals: Katherine Chi MD [Physician] - (Please call and schedule a follow-up appointment with Dr. Chi in 5 weeks. ) - Discharge Summary/Plan Comment DC Time >30 min.: No - Patient Data Vitals - Most Recent: Last Vital Signs Temp 36.5 C 03/10/17 03:15 Pulse 86 03/10/17 03:15 Resp 19 03/10/17 03:15 BP 124/67 03/10/17 03:15 Pulse Ox 91 L 03/10/17 03:15 Weight - Most Recent: 118.932 kg I&O - Last 24 hours: Intake & Output 03/09/17 03/09/17 03/10/17 14:59 22:59 06:59 Intake Total 2500 300 1400 Output Total 550 350 400 Balance 1950 -50 1000 Lab Results - Last 24 hrs: Laboratory Results - last 24 hr 03/09/17 03/09/17 03/09/17 Range/Units 07:50 07:50 07:50 WBC 8.96 (3.98-10.04) K/mm3 RBC 4.73 (3.98-5.22) M/mm3 Hgb 14.6 (11.2-15.7) gm/L Hct 43.0 (34.1-44.9) % MCV 90.9 (79.4-94.8) fl MCH 30.9 (25.6-32.2) pg MCHC 34.0 (32.2-35.5) g/dl RDW Std Deviation 45.9 (36.4-46.3) fL Plt Count 212 (182-369) K/mm3 MPV 10.4 (9.4-12.3) fl Neut % (Auto) 46.4 (34.0-71.1) % Lymph % (Auto) 41.9 (19.3-51.7) % [place] % (Auto) 4.7 (4.7-12.5) % Eos % (Auto) 6.5 H (0.7-5.8) Baso % (Auto) 0.4 (0.1-1.2) % Neut # (Auto) 4.16 (1.56-6.13) K/mm3 Lymph # (Auto) 3.75 H (1.18-3.74) K/mm3 [place] # (Auto) 0.42 H (0.24-0.36) K/mm3 Eos # (Auto) 0.58 H (0.04-0.36) K/mm3 Baso # (Auto) 0.04 (0.01-0.08) K/mm3 Sodium 140 (136-145) mEq/L Potassium 4.1 (3.5-5.1) mEq/L Chloride 102 (98-107) mEq/L Carbon Dioxide 28 (21-32) mEq/L Anion Gap 14.1 (5-15) BUN 11 (7-18) mg/dL Creatinine 0.8 (0.55-1.02) mg/dL Est Cr Clr Drug Dosing 72.65 mL/min Estimated GFR (MDRD) > 60 (>60) mL/min BUN/Creatinine Ratio 13.8 L (14-18) Glucose 141 H (74-106) mg/dL POC Glucose (70-105) mg/dL Calcium 9.6 (8.5-10.1) mg/dL Blood Type O POSITIVE Gel Antibody Screen Negative 03/09/17 03/09/17 03/09/17 Range/Units 07:53 16:30 21:19 WBC (3.98-10.04) K/mm3 RBC (3.98-5.22) M/mm3 Hgb (11.2-15.7) gm/L Hct (34.1-44.9) % MCV (79.4-94.8) fl MCH (25.6-32.2) pg MCHC (32.2-35.5) g/dl RDW Std Deviation (36.4-46.3) fL Plt Count (182-369) K/mm3 MPV (9.4-12.3) fl Neut % (Auto) (34.0-71.1) % Lymph % (Auto) (19.3-51.7) % [place] % (Auto) (4.7-12.5) % Eos % (Auto) (0.7-5.8) Baso % (Auto) (0.1-1.2) % Neut # (Auto) (1.56-6.13) K/mm3 Lymph # (Auto) (1.18-3.74) K/mm3 [place] # (Auto) (0.24-0.36) K/mm3 Eos # (Auto) (0.04-0.36) K/mm3 Baso # (Auto) (0.01-0.08) K/mm3 Sodium (136-145) mEq/L Potassium (3.5-5.1) mEq/L Chloride (98-107) mEq/L Carbon Dioxide (21-32) mEq/L Anion Gap (5-15) BUN (7-18) mg/dL Creatinine (0.55-1.02) mg/dL Est Cr Clr Drug Dosing mL/min Estimated GFR (MDRD) (>60) mL/min BUN/Creatinine Ratio (14-18) Glucose (74-106) mg/dL POC Glucose 135 H 211 H 161 H (70-105) mg/dL Calcium (8.5-10.1) mg/dL Blood Type Gel Antibody Screen Med Orders - Current: Current Medications Albuterol (Proventil Hfa) 0 gm INH Q4H PRN PRN Reason: Pain Diphenhydramine HCl (Benadryl) 50 mg PO BEDTIME [facility] Last Admin: 03/09/17 19:12 Dose: 50 mg Docusate Sodium (Colace) 100 mg PO BID [facility] Last Admin: 03/09/17 20:11 Dose: Not Given Duloxetine HCl (Cymbalta) 30 mg PO DAILY [facility] Gabapentin (Neurontin) 900 mg PO TID [facility] Last Admin: 03/09/17 20:25 Dose: 900 mg Metoprolol Tartrate (Lopressor) 100 mg PO BID [facility] Last Admin: 03/09/17 20:26 Dose: 100 mg Varenicline Tartrate (Chantix) 1 Mg Tab Own Med 0 mg PO BID [facility] Last Admin: 03/09/17 20:28 Dose: 1 mg Ondansetron HCl (Zofran) 4 mg IVPUSH Q4H PRN PRN Reason: Nausea/Vomiting Oxycodone/Acetaminophen (Percocet 325-5 Mg) 2 tab PO Q4H PRN PRN Reason: Pain (moderate 4-6) Last Admin: 03/10/17 06:02 Dose: 2 tab Pantoprazole Sodium (Protonix) 40 mg PO ACBREAKFAST [facility] Janumet 50 Mg/1000 (Mg Tab Own Med) 0 each PO BIDMEALS [facility] Atorvastatin 40 Mg * (*Own Med) 0 each PO BEDTIME [facility] Last Admin: 03/09/17 20:29 Dose: 1 each Sodium Chloride (Saline Flush) 10 ml FLUSH ASDIRECTED PRN PRN Reason: Keep Vein Open Discontinued Medications Albuterol (Proventil Neb Soln) 2.5 mg NEB ONETIME ONE Stop: 03/09/17 08:29 Last Admin: 03/09/17 08:51 Dose: 2.5 mg Albuterol/Ipratropium (Duoneb 3.0-0.5 Mg/3 Ml) 3 ml NEB ONETIME PRN PRN Reason: Shortness of Breath Stop: 03/09/17 18:00 Dexamethasone (Dexamethasone) Confirm Administered Dose 20 mg .ROUTE .STK-MED ONE Stop: 03/09/17 07:31 Diphenhydramine HCl (Benadryl) 25 mg IVPUSH Q6H PRN PRN Reason: Pruritis Diphenhydramine HCl (Benadryl) 50 mg PO BEDTIME [facility] Fentanyl (Sublimaze) Confirm Administered Dose 250 mcg .ROUTE .STK-MED ONE Stop: 03/09/17 07:30 Fentanyl (Sublimaze) 50 mcg IVPUSH Q5M PRN PRN Reason: Pain Stop: 03/09/17 18:00 Last Admin: 03/09/17 12:29 Dose: 50 mcg Gabapentin (Neurontin) 900 mg PO TID [facility] Last Admin: 03/09/17 14:57 Dose: 900 mg Glycopyrrolate () Confirm Administered Dose 1 mg .ROUTE .STK-MED ONE Stop: 03/09/17 11:49 Haloperidol Lactate (Haldol) 1 mg IVPUSH ONETIME ONE Stop: 03/09/17 12:01 Hydromorphone HCl (Dilaudid) 0.5 mg IVPUSH Q15M PRN PRN Reason: severe pain Stop: 03/09/17 18:00 Last Admin: 03/09/17 12:35 Dose: 0.5 mg Lactated Ringer's (Ringers, Lactated) 1,000 mls @ 125 mls/hr IV ASDIRECTED [facility] Stop: 03/09/17 23:00 Last Admin: 03/09/17 07:53 Dose: 125 mls/hr Lactated Ringer's (Ringers, Lactated) Confirm Administered Dose 1,000 mls @ as directed .ROUTE .STK-MED ONE Stop: 03/09/17 07:30 Clindamycin Phosphate 900 mg/ (Dextrose/Water) 106 mls @ 212 mls/hr IV ONETIME ONE Stop: 03/09/17 09:29 Last Admin: 03/09/17 08:19 Dose: 212 mls/hr Gentamicin Sulfate 400 mg/ (Dextrose/Water) 110 mls @ 110 mls/hr IV ONETIME ONE Stop: 03/09/17 10:29 Ketamine HCl (Ketalar) Confirm Administered Dose 500 mg .ROUTE .STK-MED ONE Stop: 03/09/17 10:45 Ketorolac Tromethamine (Toradol) Confirm Administered Dose 30 mg .ROUTE .STK- MED ONE Stop: 03/09/17 11:51 Lidocaine/Epinephrine (Xylocaine 1% With Epinephrine 1:100,000) Confirm Administered Dose 20 ml .ROUTE .STK-MED ONE Stop: 03/09/17 08:03 Last Admin: 03/09/17 10:05 Dose: 11 ml Lidocaine/Sodium Bicarbonate (Buffered Lidocaine 1% In Ns 8.4%) 0.25 ml IV ONETIME PRN PRN Reason: Prior to IV Start Stop: 03/09/17 18:00 Last Admin: 03/09/17 07:53 Dose: 0.25 ml [facility] Last Admin: 03/09/17 18:37 Dose: 1,000 mg Midazolam HCl (Versed 1 Mg/Ml) Confirm Administered Dose 2 mg .ROUTE .STK-MED ONE Stop: 03/09/17 07:30 Midazolam HCl (Versed 1 Mg/Ml) 2 mg IVPUSH ONETIME PRN PRN Reason: Sedation Stop: 03/09/17 18:00 Neostigmine Methylsulfate (Neostigmine) Confirm Administered Dose 5 mg .ROUTE .STK-MED ONE Stop: 03/09/17 11:49 Non-Formulary Medication (Sitagliptin Phos/Metformin Hcl [Janumet 50-1,000 Mg]) 1 tab PO BID [facility] Ondansetron HCl (Zofran) Confirm Administered Dose 4 mg .ROUTE .STK-MED ONE Stop: 03/09/17 07:30 Atorvastatin 40 Mg * (*Own Med) 0 each PO DAILY [facility] Phenylephrine HCl (Phenylephrine In Ns 100 Mcg/Ml) Confirm Administered Dose 1 mg .ROUTE .STK-MED ONE Stop: 03/09/17 10:04 Propofol (Diprivan 20 Ml) Confirm Administered Dose 400 mg .ROUTE .STK-MED ONE Stop: 03/09/17 07:30 Propofol (Diprivan 20 Ml) Confirm Administered Dose 600 mg .ROUTE .STK-MED ONE Stop: 03/09/17 10:11 Rocuronium Aurora (Zemuron) Confirm Administered Dose 50 mg .ROUTE .STK-MED ONE Stop: 03/09/17 07:30 Saxagliptin Hydrochloride (Onglyza) 5 mg PO BIDMEALS [facility] Last Admin: 03/09/17 18:37 Dose: 5 mg Sodium Chloride (Saline Flush) 10 ml FLUSH ASDIRECTED PRN PRN Reason: Keep Vein Open Stop: 03/09/17 18:00 *Q Meaningful Use (DIS) - VTE *Q VTE Criteria *Q: - Stroke *Q Stroke Criteria *Q: - AMI *Q AMI Criteria *Q:
--- NOTE | 2017-03-10 08:16 | PCM48HPAN ---
Post Anesthesia Note - EVALUATION WITHIN 48HRS OF ANESTHETIC Vital Signs in Normal Range: Yes Patient Participated in Evaluation: Yes Respiratory Function Stable: Yes Airway Patent: Yes Cardiovascular Function Stable: Yes Hydration Status Stable: Yes Pain Control Satisfactory: Yes Nausea and Vomiting Control Satisfactory: Yes Mental Status Recovered: Yes - COMMENTS/OBSERVATIONS Free Text/Narrative:: Patient denies any complications overnight. Rested well. Denies any PONV. Sitting up in chair eating breakfast.
[2017-03-10] MEDS: METOPROLOL TARTRATE 100 MG PO SCH (09:51)
[2017-03-10] MEDS: VARENICLINE TARTRATE 1 MG PO SCH (09:54)
[2017-03-10 09:57] VITALS: BP 111/61
[2017-03-10] MEDS: Docusate Sodium 100 MG Cap PO SCH (10:05)
== END | disposition home or self-care (01) ==
LOC: JD.SDS 07:22
PROVIDERS: ATTEND Obstetrics & Gynecology
DX: D25.9 Leiomyoma of uterus, unspecified (principal); N80.0 Endometriosis of uterus; I10 Essential (primary) hypertension; K21.9 Gastro-esophageal reflux disease without esophagitis; E78.5 Hyperlipidemia, unspecified; E11.42 Type 2 diabetes mellitus with diabetic polyneuropathy; J44.9 Chronic obstructive pulmonary disease, unspecified; I73.9 Peripheral vascular disease, unspecified; F41.9 Anxiety disorder, unspecified; Z88.8 Allergy status to other drugs, medicaments and biological substances; Z88.1 Allergy status to other antibiotic agents; Z88.0 Allergy status to penicillin; Z91.041 Radiographic dye allergy status; Z88.2 Allergy status to sulfonamides; Z91.040 Latex allergy status; Z91.018 Allergy to other foods; Z98.51 Tubal ligation status; Z98.890 Other specified postprocedural states; Z79.4 Long term (current) use of insulin; Z79.899 Other long term (current) drug therapy; F17.210 Nicotine dependence, cigarettes, uncomplicated
CPT/HCPCS: 36415; 58260; 80048; 82962; 85025; 86850; 86900; 86901; 94640; A9270; J1170; J1885; J2250; J2405; J2710; J3010; J7060; J7120; 00944; J1100; J2704

== ENCOUNTER 2017-08-03 07:49 | Day surgery (SDC) | payer MEDICAID ==
--- NOTE | 2017-08-03 07:36 | PCM.PREANE ---
Preanesthetic Assessment - Anesthesia/Transfusion/Family Hx Anesthesia History: Prior Anesthesia Without Reaction Family History of Anesthesia Reaction: No Transfusion History: No Prior Transfusion(s) Intubation History: Unknown - Review of Systems Pulmonary: No Symptoms (quit smoking 1.5 months ago/History of smoking for 40 years. History of COPD.), Cough Cardiovascular: No Symptoms (Peripheral Artery disease/HTN), Palpitations, Dyspnea on Exertion (since singular patient c/o more coughing and states SILVERIO has improved.), Lightheadedness Gastrointestinal: No Symptoms (GERD/history of hiatal hernia) Neurological: No Symptoms (history of raynaud's disease), Headache (history of migraine headaches), Numbness (diabetic neuropathies noted), Seizure (history of epilepsy last seizure noted to be 2 years ago.), Tingling (all four extremities all the time per patient) Other: Reports: Easy Bruising, Diabetes (am blood xryrz=[id number] @ 0817), Liver Problems (liver enzymes are elevated.), Sinus Problem (rhinitis noted), Neck Pain (some neck tendernes noted with extension), Anxiety - Physical Assessment NPO Status Date: 08/02/17 NPO Status Time: 16:30 Pulse: 83 O2 Sat by Pulse Oximetry: 96 Respiratory Rate: 16 Blood Pressure: 132/88 Temperature: 37.7 C Height: 1.63 m Weight: 115 kg ASA Class: 3 Mental Status: Alert & Oriented x3 Airway Class: Mallampati = 3 Dentition: Reports: Dentures (upper), Broken Tooth/Teeth (poor dentition noted on the bottom) Thyro-Mental Finger Breadths: 3 Mouth Opening Finger Breadths: 3 ROM/Head Extension: Full (some neck tenderness noted) Lungs: Clear to Auscultation, Normal Respiratory Effort Cardiovascular: Regular Rate, Regular Rhythm, No Murmurs - Lab Values: MRSA screen pending. All lab values reviewed and noted and within acceptable ranges to proceed with scheduled procedure. - Imaging/EKG Impressions: EKG: SR rate=85 CXR: Fat pad cardiac apex/ otherwise unremarkable. - Allergies Allergies/Adverse Reactions: Allergies Allergy/AdvReac Type Severity Reaction Status Date / Time Iodinated Contrast- Oral and Allergy Severe Airway Verified 08/02/17 14:12 IV Dye Tightness [Iodinated Contrast Media - IV Dye] alcohol Allergy Cannot Verified 08/02/17 14:12 Remember amoxicillin trihydrate Allergy Airway Verified 08/02/17 14:12 [From Augmentin] Tightness aspirin Allergy Airway Verified 08/02/17 14:12 Tightness bee venom protein (honey bee) Allergy Cannot Verified 08/02/17 14:12 Remember cefuroxime axetil Allergy Airway Verified 08/02/17 14:12 [From Ceftin] Tightness cephalexin monohydrate Allergy Airway Verified 08/02/17 14:12 [From Keflex] Tightness ciprofloxacin [From Cipro] Allergy Airway Verified 08/02/17 14:12 Tightness ciprofloxacin HCl Allergy Airway Verified 08/02/17 14:12 [From Cipro] Tightness doxycycline Allergy Airway Verified 08/02/17 14:12 Tightness honey Allergy Hives Verified 08/02/17 14:12 latex Allergy Airway Verified 08/02/17 14:12 Tightness metronidazole [From Flagyl] Allergy Airway Verified 08/02/17 14:12 Tightness nitrofurantoin Allergy Airway Verified 08/02/17 14:12 [From Macrobid] Tightness nitrofurantoin Allergy Airway Verified 08/02/17 14:12 macrocrystalline Tightness [From Macrobid] Penicillins Allergy Airway Verified 08/02/17 14:12 Tightness perfume Allergy Cannot Verified 08/02/17 14:12 Remember potassium clavulanate Allergy Airway Verified 08/02/17 14:12 [From Augmentin] Tightness prednisone Allergy Cannot Verified 08/02/17 14:12 Remember soap Allergy Cannot Verified 08/02/17 14:12 Remember Mpepmlp-Wmr-Pqp Reductase Allergy Cannot Verified 08/02/17 14:12 Inhibitor Remember strawberry [Tram] Allergy Airway Verified 08/02/17 14:12 Tightness sulfamethoxazole Allergy Airway Verified 08/02/17 14:12 [From Bactrim] Tightness tetracycline [Tetracycline] Allergy Airway Verified 08/02/17 14:12 Tightness trimethoprim [From Bactrim] Allergy Airway Verified 08/02/17 14:12 Tightness deodorants Allergy Cannot Uncoded 08/02/17 14:12 Remember metals Allergy Cannot Uncoded 08/02/17 14:12 Remember sausage Allergy Cannot Uncoded 08/02/17 14:12 Remember shampoo Allergy Cannot Uncoded 08/02/17 14:12 Remember - Anesthesia Plan Pre-Op Medication Ordered: Beta Elpidio Beta Elpidio: Metoprolol Med Last Dose Date: 08/03/17 Med Last Dose Time: 05:00 - Acknowledgements Anesthesia Type Planned: MAC (Bilateral digital block) Pt an Appropriate Candidate for the Planned Anesthesia: Yes Alternatives and Risks of Anesthesia Discussed w Pt/Guardian: Yes Pt/Guardian Understands and Agrees with Anesthesia Plan: Yes PreAnesthesia Questionnaire HEENT History: Reports: Impaired Vision, Other (See Below) Other HEENT History: patient has upper denture and glasses Cardiovascular History: Reports: High Cholesterol, Hypertension, Other (See Below) Other Cardiovascular History: chest pain, peripheral artery disease Respiratory History: Reports: Asthma, Bronchitis, Recurrent, COPD, SOB, Other ( See Below) Other Respiratory History: low o2 level when sleeping Gastrointestinal History: Reports: Diverticulosis, GERD, Hiatal Hernia, Other ( See Below) Other Gastrointestinal History: gastric ulcers, rectal bleeding, abdominal pain , fatty liver infiltrate Genitourinary History: Reports: Renal Calculus, Other (See Below) Other Genitourinary History: perineal pain, kidney stones PARTS CLASSIFIER History: Reports: None, Spontaneous Musculoskeletal History: Reports: Fibromyalgia, Other (See Below) Other Musculoskeletal History: carpal tunnel syndrome Neurological History: Reports: Migraines, Neuropathy, Peripheral, Seizure Psychiatric History: Reports: Anxiety, Panic Attack Endocrine/Metabolic History: Reports: Diabetes, Type II Hematologic History: Reports: None Immunologic History: Reports: None Oncologic (Cancer) History: Reports: Cervix Dermatologic History: Reports: None - Infectious Disease History Infectious Disease History: Reports: None - Past Surgical History Head Surgeries/Procedures: Reports: None Cardiovascular Surgical History: Reports: None Respiratory Surgical History: Reports: None GI Surgical History: Reports: Colonoscopy, EGD Female Surgical History: Reports: Lithotripsy/ESWL, Tubal Ligation Endocrine Surgical History: Reports: None Neurological Surgical History: Reports: None Musculoskeletal Surgical History: Reports: None Oncologic Surgical History: Reports: None Dermatological Surgical History: Reports: None - SUBSTANCE USE Smoking Status *Q: Former Smoker Tobacco Use Within Last Twelve Months: Cigarettes, Other (See Below) Other Tobacco Use Within Last Twelve Months: vapes Second Hand Smoke Exposure: Yes Days Per Week of Alcohol Use: 0 Recreational Drug Use History: No - HOME MEDS Home Medications: Home Meds Albuterol Sulfate [Proair Hfa] 2 puff INH Q4H PRN 01/07/17 [History] DULoxetine [Cymbalta] 60 mg PO DAILY 01/07/17 [History] EPINEPHrine [Epipen] 1 dose IM ASDIRECTED PRN 01/07/17 [History] Fish Oil/[place]-3 Fatty Acids [Fish Oil 1,000 MG] 2 g PO DAILY 01/07/17 [History] Furosemide [Lasix] 20 mg PO DAILY PRN 01/07/17 [History] Gabapentin [Neurontin] 900 mg PO TID 01/07/17 [History] Inulin [Fiber Choice] 3 gm PO DAILY 01/07/17 [History] Metoprolol Tartrate [Lopressor] 100 mg PO BID 01/07/17 [History] atorvaSTATin [Lipitor] 40 mg PO DAILY 01/07/17 [History] diphenhydrAMINE HCl [Benadryl] 50 mg PO BEDTIME 01/07/17 [History] sitaGLIPtin Phos/Metformin HCl [Janumet 50-1,000 MG] 1 tab PO BID 01/07/17 [ History] Methylcellulose [Citrucel] 500 mg PO DAILY 03/08/17 [History] Pantoprazole Sodium [Protonix] 20 mg PO DAILY 03/08/17 [History] Albuterol [Proventil Neb Soln] 1 dose NEB QID PRN 08/02/17 [History] - CURRENT (IN HOUSE) MEDS Current Meds: Current Medications Albuterol (Proventil Neb Soln) 2.5 mg NEB ONETIME ONE Stop: 08/03/17 00:02 Lactated Ringer's (Ringers, Lactated) 1,000 mls @ 125 mls/hr IV ASDIRECTED BETTINA Stop: 08/03/17 23:00 Lidocaine/Sodium Bicarbonate (Buffered Lidocaine 1% In Ns 8.4%) 0.25 ml IDERM ONETIME PRN PRN Reason: Prior to IV Start Stop: 08/03/17 18:00 Sodium Chloride (Saline Flush) 10 ml FLUSH ASDIRECTED PRN PRN Reason: Keep Vein Open Stop: 08/03/17 18:00 Discontinued Medications Lactated Ringer's (Ringers, Lactated) 1,000 mls @ 125 mls/hr IV ASDIRECTED BETTINA Stop: 08/02/17 23:00 Lidocaine/Sodium Bicarbonate (Buffered Lidocaine 1% In Ns 8.4%) 0.25 ml IDERM ONETIME PRN PRN Reason: Prior to IV Start Stop: 08/02/17 18:00 Sodium Chloride (Saline Flush) 10 ml FLUSH ASDIRECTED PRN PRN Reason: Keep Vein Open Stop: 08/02/17 18:00
[~2017-08-03 07:49] MED LIST changes: -Albuterol 0.083% 2.5 MG/3 ML Neb Soln NEB ONE; +Albuterol 0.083% 2.5 MG/3 ML Neb Soln NEB SCH; -Albuterol 6.7 GM Inhaler INH PRN; -Albuterol/Ipratropium 3.0-0.5 MG/3 ML Neb Soln NEB PRN; -Clindamycin Phosphate 900 MG in Dextrose 5% in Water 100 ML IV ONE; -DULOXETINE 30 MG PO SCH; -Dexamethasone 4 MG/ML 5 ML MDV ONE; -Gabapentin 300 MG Cap PO SCH; -Gentamicin 400 MG in Dextrose 5% in Water 100 ML IV ONE; -Haloperidol Lactate 5 MG/ML SDV IVPUSH ONE; -JANUMET PO SCH; -Ketamine 500 mg/10 ML MDV ONE; -Ketorolac 30 MG/ML SDV ONE; -Lactated Ringers 1,000 ML ONE; -Lidocaine 1% with EPINEPHrine 1:100,000 20 ML MDV ONE; +Lidocaine 1%/Sod Bicarbonate in NS 8.4% 1 ML Syringe IDERM PRN; -Lidocaine 1%/Sod Bicarbonate in NS 8.4% 1 ML Syringe IV PRN; -Midazolam 1 MG/ML 2 ML SDV IVPUSH PRN; -Midazolam 1 MG/ML 2 ML SDV ONE; -Neostigmine Methylsulfate 1 MG/ML 5 ML Syringe ONE; -Non-Formulary Medication 1 Each (Sitagliptin Phos/Metformin Hcl [Janumet 50-1,000 Mg] 1 TA PO SCH; -Ondansetron 4 MG/2 ML SDV IVPUSH PRN; -Ondansetron 4 MG/2 ML SDV ONE; -Pantoprazole 40 MG Tab.CR PO SCH; -Phenylephrine/Normal Saline 100 MCG/ML 10 ML Syringe ONE; -Propofol 200 MG/20 ML SDV ONE; -Rocuronium 50 MG/5 ML Vial ONE; -Saxagliptin 5 MG Tab PO SCH; -VARENICLINE TARTRATE 1 MG PO SCH; -diphenhydrAMINE 50 MG Cap PO SCH; -diphenhydrAMINE 50 MG/ML SDV IVPUSH PRN; -fentaNYL 100 MCG/2 ML SDV IVPUSH PRN; -fentaNYL 250 MCG/5 ML SDV ONE; -metFORMIN 500 MG Tab PO SCH
[2017-08-03] MEDS ORDERED: Lidocaine 1% 30 ML SDV ONE (08:41)
[2017-08-03] MEDS ORDERED: Bupivacaine 0.5% 30 ML SDV ONE (08:41)
[2017-08-03] MEDS ORDERED: Lidocaine 1% 4 ML ONE (08:45)
[2017-08-03] MEDS ORDERED: Midazolam 1 MG/ML 2 ML SDV ONE (08:46)
[2017-08-03] MEDS ORDERED: Propofol 200 MG/20 ML SDV ONE (08:46)
[2017-08-03] MEDS ORDERED: fentaNYL 100 MCG/2 ML SDV ONE (08:46)
[2017-08-03] MEDS ORDERED: Clindamycin Phosphate 900 MG in Sodium Chloride 0.9% 100 ML IV ONE (09:00)
[2017-08-03] MEDS ORDERED: Ondansetron 4 MG/2 ML SDV IVPUSH PRN (09:45)
--- NOTE | 2017-08-03 10:17 | PCM48HPAN ---
Post Anesthesia Note - EVALUATION WITHIN 48HRS OF ANESTHETIC Vital Signs in Normal Range: Yes Patient Participated in Evaluation: Yes Respiratory Function Stable: Yes Airway Patent: Yes Cardiovascular Function Stable: Yes Hydration Status Stable: Yes Pain Control Satisfactory: Yes Nausea and Vomiting Control Satisfactory: Yes Mental Status Recovered: Yes Pulse Rate: 96 SaO2: 94 Resp Rate: 16 Temperature: 98.9 F Blood Pressure: 113/68
--- NOTE | 2017-08-03 10:30 | PCM.OPNOTE ---
- General Post-Op/Procedure Note Date of Surgery/Procedure: 08/03/17 Post-Op Diagnosis: Same Anesthesia Technique: Local, Moderate Sedation Primary Surgeon: Tripp Eagle II Anesthesia Provider: Annel Allen EBFrancisco in mLs: 5 Complications: None Condition: Good Free Text/Narrative:: Patient left the O.R., for recovery with vital signs stable & vascular status grossly intact, to digits 1-5 B/L feet.
[2017-08-03] MEDS ORDERED: Acetaminophen/HYDROcodone 325-5 MG Tab PO PRN (11:04)
[2017-08-03 12:21] VITALS: BP 128/81
--- NOTE | 2017-08-04 07:38 | OR ---
DATE OF OPERATION: 08/03/2017 SURGEON: Tripp Eagle II, DPM LOCATION: [facility]. ANESTHESIA: MAC with local block bilateral hallux toenail. ANESTHESIA PROVIDER: Annel Allen CRNA. Right and left Esmarch bandage, digital Tourni-cot . PREOPERATIVE DIAGNOSIS: 1. Painful and symptomatic ingrown toenail, right hallux, tibial, and fibular borders. 2. Painful and symptomatic ingrown toenail, left hallux, tibial, and fibular borders. POSTOPERATIVE DIAGNOSIS: 1. Painful and symptomatic ingrown toenail, right hallux, tibial, and fibular borders. 2. Painful and symptomatic ingrown toenail, left hallux, tibial, and fibular borders. OPERATION PERFORMED: 1. Partial permanent surgical matrixectomy in right hallux, tibial, and fibular borders. 2. Partial permanent surgical matrixectomy in left hallux, tibial, and fibular borders. DESCRIPTION OF PROCEDURE: Upon arrival and admission to the hospital, the patient was examined and cleared for surgery by the assigned anesthesia provider. IV access was obtained in the preoperative area after which the patient was given clindamycin 900 mg IV piggyback. The patient was then brought to the OR via gurney and transferred on the operating room table in the supine position. The patient was given combination of sedations and was adequately sedated before receiving 6 mL of a 1:1 mixture of 1% lidocaine plain and 0.5% Marcaine plain in the form of local infiltrative block distributed between the two hallux toes. Right and left lower extremities were then prepped and draped in usual aseptic manner. The right and left lower extremities were then exsanguinated with use of an Esmarch bandage, which was left in place to form a hemostasis and Tourni-cot. Attention was then directed to the medial and lateral borders of the bilateral hallux toenails where there was small remnant spicules that had regrown from a previous total matrixectomy. They were resected Win[place]rad semi-elliptical fashion on either border where the spicules were present. The wound was then copiously lavaged with sterile saline solution and a small amount of undermining was undertaken and the skin was then reapproximated with the use of 4-0 nylon in the form of horizontal and simple interrupted suture knots. Upon completion of the procedures bilateral hallux toenails, wound sites were dressed with Betadine- soaked Adaptic gauze, 4x4 gauze, Vega, and as well as Coban. Upon completion of the surgery, the Esmarch was released to form the digital hemostasis and it was then noted that digits right and left hallux became pink indicating normal vascular perfusion had returned. The patient appeared to tolerate the procedure and anesthesia well with vital signs being stable and vascular status intact digits 1 through 5 of the right and left lower extremities with no complications. In recovery, the patient received written and oral postoperative instructions as well as postoperative pain medication. The patient will ambulate partial weightbearing with a postoperative shoe about her right and left foot and ankle. Estimated blood loss was less than 5 mL and considered negligible. There were no apparent or obvious complications. ESTIMATED BLOOD LOSS: MMODAL /[id number]
== END 2017-08-03 11:55 | disposition home or self-care (01) ==
LOC: JD.SDS 07:49
PROVIDERS: ATTEND Podiatrist Foot & Ankle Surgery
DX: L60.0 Ingrowing nail (principal); E11.40 Type 2 diabetes mellitus with diabetic neuropathy, unspecified; I10 Essential (primary) hypertension; J45.909 Unspecified asthma, uncomplicated; K21.9 Gastro-esophageal reflux disease without esophagitis; E78.5 Hyperlipidemia, unspecified; J44.9 Chronic obstructive pulmonary disease, unspecified; F41.9 Anxiety disorder, unspecified; I73.9 Peripheral vascular disease, unspecified; Z87.891 Personal history of nicotine dependence
CPT/HCPCS: 11750; 82962; A9270; J2250; J3010; J7030; J7120; J2704

== ENCOUNTER 2017-10-12 15:54 | Emergency (ER) | payer MEDICAID ==
[2017-10-12] MEDS ORDERED: Albuterol/Ipratropium 3.0-0.5 MG/3 ML Neb Soln NEB ONE (15:59)
[2017-10-12 16:03] VITALS: BP 159/93
--- NOTE | 2017-10-12 16:21 | EDM.PDOC ---
ED HPI GENERAL MEDICAL PROBLEM - General Chief Complaint: Respiratory Problem Stated Complaint: COUGHING/CAN'T BREATH Time Seen by Provider: 10/12/17 15:59 Source of Information: Reports: Patient, RN Notes Reviewed - History of Present Illness INITIAL COMMENTS - FREE TEXT/NARRATIVE: 51-year-old lady comes in with cough, severe difficulty breathing. She has history of asthma COPD, chronic bronchitis. She is a former smoker stating that she did quit about 3 or 4 months ago. Cough started about a week ago and is greatly worsened the past 2 or 3 days. She states she has some grandchildren that is been ill with nasal congestion and mild cold symptoms. She does have pain anterior chest with coughing. Cough remains primarily nonproductive. She has been wheezing a lot. She states that she "is allergic to steroid medications ". - Related Data Allergies Allergy/AdvReac Type Severity Reaction Status Date / Time Iodinated Contrast- Oral and Allergy Severe Airway Verified 10/12/17 16:03 IV Dye Tightness [Iodinated Contrast Media - IV Dye] alcohol Allergy Cannot Verified 10/12/17 16:03 Remember amoxicillin trihydrate Allergy Airway Verified 10/12/17 16:03 [From Augmentin] Tightness aspirin Allergy Airway Verified 10/12/17 16:03 Tightness bee venom protein (honey bee) Allergy Cannot Verified 10/12/17 16:03 Remember cefuroxime axetil Allergy Airway Verified 10/12/17 16:03 [From Ceftin] Tightness cephalexin monohydrate Allergy Airway Verified 10/12/17 16:03 [From Keflex] Tightness ciprofloxacin [From Cipro] Allergy Airway Verified 10/12/17 16:03 Tightness ciprofloxacin HCl Allergy Airway Verified 10/12/17 16:03 [From Cipro] Tightness doxycycline Allergy Airway Verified 10/12/17 16:03 Tightness honey Allergy Hives Verified 10/12/17 16:03 latex Allergy Airway Verified 10/12/17 16:03 Tightness metronidazole [From Flagyl] Allergy Airway Verified 10/12/17 16:03 Tightness nitrofurantoin Allergy Airway Verified 10/12/17 16:03 [From Macrobid] Tightness nitrofurantoin Allergy Airway Verified 10/12/17 16:03 macrocrystalline Tightness [From Macrobid] Penicillins Allergy Airway Verified 10/12/17 16:03 Tightness perfume Allergy Cannot Verified 10/12/17 16:03 Remember potassium clavulanate Allergy Airway Verified 10/12/17 16:03 [From Augmentin] Tightness prednisone Allergy Cannot Verified 10/12/17 16:03 Remember soap Allergy Cannot Verified 10/12/17 16:03 Remember Kewzbkn-Pwq-Gjd Reductase Allergy Cannot Verified 10/12/17 16:03 Inhibitor Remember strawberry [[place]] Allergy Airway Verified 10/12/17 16:03 Tightness sulfamethoxazole Allergy Airway Verified 10/12/17 16:03 [From Bactrim] Tightness tetracycline [Tetracycline] Allergy Airway Verified 10/12/17 16:03 Tightness trimethoprim [From Bactrim] Allergy Airway Verified 10/12/17 16:03 Tightness deodorants Allergy Cannot Uncoded 10/12/17 16:03 Remember metals Allergy Cannot Uncoded 10/12/17 16:03 Remember sausage Allergy Cannot Uncoded 10/12/17 16:03 Remember shampoo Allergy Cannot Uncoded 10/12/17 16:03 Remember Home Meds: Home Meds Albuterol Sulfate [Proair Hfa] 2 puff INH Q4H PRN 01/07/17 [History] DULoxetine [Cymbalta] 60 mg PO DAILY 01/07/17 [History] EPINEPHrine [Epipen] 1 dose IM ASDIRECTED PRN 01/07/17 [History] Fish Oil/[place]-3 Fatty Acids [Fish Oil 1,000 MG] 2 g PO DAILY 01/07/17 [History] Furosemide [Lasix] 20 mg PO DAILY PRN 01/07/17 [History] Gabapentin [Neurontin] 900 mg PO TID 01/07/17 [History] Inulin [Fiber Choice] 3 gm PO DAILY 01/07/17 [History] Metoprolol Tartrate [Lopressor] 100 mg PO BID 01/07/17 [History] atorvaSTATin [Lipitor] 40 mg PO DAILY 01/07/17 [History] diphenhydrAMINE HCl [Benadryl] 50 mg PO BEDTIME 01/07/17 [History] sitaGLIPtin Phos/Metformin HCl [Janumet 50-1,000 MG] 1 tab PO BID 01/07/17 [ History] Methylcellulose [Citrucel] 500 mg PO DAILY 03/08/17 [History] Pantoprazole Sodium [Protonix] 20 mg PO DAILY 03/08/17 [History] Albuterol [Proventil Neb Soln] 1 dose NEB QID PRN 08/02/17 [History] Montelukast [Singulair] 10 mg PO DAILY 08/03/17 [History] Past Medical History HEENT History: Reports: Impaired Vision, Other (See Below) Other HEENT History: patient has upper denture and glasses Cardiovascular History: Reports: High Cholesterol, Hypertension, PVD Other Cardiovascular History: chest pain, peripheral artery disease Respiratory History: Reports: Asthma, COPD, Sleep Apnea, SOB Other Respiratory History: low o2 level when sleeping Gastrointestinal History: Reports: Diverticulosis, GERD Other Gastrointestinal History: gastric ulcers, rectal bleeding, abdominal pain , fatty liver infiltrate Genitourinary History: Reports: Renal Calculus, Other (See Below) Other Genitourinary History: perineal pain 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: Reports: None, Spontaneous Musculoskeletal History: Reports: Fibromyalgia Other Musculoskeletal History: carpal tunnel syndrome Neurological History: Reports: Migraines, Neuropathy, Peripheral, Seizure Psychiatric History: Reports: Anxiety, Panic Attack Endocrine/Metabolic History: Reports: Diabetes, Type II Hematologic History: Reports: None Immunologic History: Reports: None Oncologic (Cancer) History: Reports: Cervix Dermatologic History: Reports: None - Infectious Disease History Infectious Disease History: Reports: None - Past Surgical History Head Surgeries/Procedures: Reports: None Cardiovascular Surgical History: Reports: None Endocrine Surgical History: Reports: None Neurological Surgical History: Reports: None Musculoskeletal Surgical History: Reports: None Oncologic Surgical History: Reports: None Dermatological Surgical History: Reports: None Social & Family History - Tobacco Use Smoking Status *Q: Former Smoker Used Tobacco, but Quit: Yes Month/Year Tobacco Last Used: 04/2017 - Caffeine Use Caffeine Use: Reports: None - Recreational Drug Use Recreational Drug Use: No ED ROS GENERAL - Review of Systems Review Of Systems: See Below Constitutional: Denies: Fever, Chills HEENT: Denies: Sinus Problem, Throat Pain Respiratory: Reports: Shortness of Breath, Wheezing, Cough. Denies: Sputum Cardiovascular: Reports: Chest Pain GI/Abdominal: Denies: Abdominal Pain (With coughing), Nausea, Vomiting Musculoskeletal: Reports: Other Skin: Reports: No Symptoms (Generalized achiness) Neurological: Reports: No Symptoms ED EXAM, GENERAL - Physical Exam Exam: See Below General Appearance: Alert, Other Eye Exam: Bilateral Eye: PERRL Throat/Mouth: Normal Inspection, Normal Oropharynx Head: Atraumatic Neck: Supple, Full Range of Motion Respiratory/Chest: Respiratory Distress, Wheezing (Moderate bilateral). No: Rhonchi Cardiovascular: Tachycardia Extremities: No: Pedal Edema, Leg Pain Neurological: Alert, Oriented, No Motor/Sensory Deficits Skin Exam: Warm, Dry, Normal Color Course - Vital Signs Last Recorded V/S: Last Vital Signs Temp 98.3 F 10/12/17 16:00 Pulse 130 H 10/12/17 16:00 Resp 35 H 10/12/17 16:00 BP 159/93 H 10/12/17 16:00 Pulse Ox 95 10/12/17 16:42 - Orders/Labs/Meds Orders: Active Orders 24 hr Category Date Time Status RT Aerosol Therapy [RC] ASDIRECTED Care 10/12/17 16:00 Active RT Aerosol Therapy [RC] ASDIRECTED Care 10/12/17 16:42 Active Chest 1V Frontal [CR] Stat Exams 10/12/17 16:07 Taken Labs: Laboratory Tests 10/12/17 10/12/17 Range/Units 16:20 16:20 WBC 8.81 (3.98-10.04) K/mm3 RBC 5.16 (3.98-5.22) M/mm3 Hgb 15.4 (11.2-15.7) gm/L Hct 46.0 H (34.1-44.9) % MCV 89.1 (79.4-94.8) fl MCH 29.8 (25.6-32.2) pg MCHC 33.5 (32.2-35.5) g/dl RDW Std Deviation 45.8 (36.4-46.3) fL Plt Count 238 (182-369) K/mm3 MPV 10.0 (9.4-12.3) fl Neut % (Auto) 52.9 (34.0-71.1) % Lymph % (Auto) 37.7 (19.3-51.7) % [place] % (Auto) 6.1 (4.7-12.5) % Eos % (Auto) 2.6 (0.7-5.8) Baso % (Auto) 0.2 (0.1-1.2) % Neut # (Auto) 4.66 (1.56-6.13) K/mm3 Lymph # (Auto) 3.32 (1.18-3.74) K/mm3 [place] # (Auto) 0.54 H (0.24-0.36) K/mm3 Eos # (Auto) 0.23 (0.04-0.36) K/mm3 Baso # (Auto) 0.02 (0.01-0.08) K/mm3 C-Reactive Protein 1.5 H* (<1.0) mg/dL Meds: Medications Discontinued Medications Generic Name Dose Route Start Last Admin Trade Name Freq PRN Reason Stop Dose Admin Albuterol 2.5 mg 10/12/17 16:42 10/12/17 16:55 Proventil Neb Soln NEB 10/12/17 16:43 2.5 mg ONETIME ONE Administration Albuterol/Ipratropium 3 ml 10/12/17 15:59 10/12/17 16:08 Duoneb 3.0-0.5 Mg/3 Ml NEB 10/12/17 16:00 3 ml ONETIME ONE Administration Lorazepam 0.5 mg 10/12/17 16:42 10/12/17 16:52 Ativan PO 10/12/17 16:43 0.5 mg ONETIME ONE Administration - Re-Assessments/Exams Free Text/Narrative Re-Assessment/Exam: 10/12/17 16:57 Chest x-ray is normal,, normal, C-reactive protein 1.5. No evidence for pneumonia she has bronchitis, exacerbation asthma. She would benefit from steroid therapy but she "claims very strongly that she is allergic to steroids. She also has a list of allergies that include about 10-15 medications and substances so that does all become somewhat questionable. Her cough and wheezing did improve mildly after the first DuoNeb treatment. We have repeated an albuterol neb treatment, also gave Ativan 0.5 mg by mouth to help relax her a bit and that does seem to be helping, she is breathing more comfortably coughing less frequently from arrival. Departure - Departure Time of Disposition: 17:15 Disposition: Home, Self-Care 01 Condition: Fair Clinical Impression: Bronchitis Asthma Qualifiers: Asthma severity: moderate Asthma complication type: with acute exacerbation - Discharge Information Instructions: Asthma, Adult, Acute Bronchitis, Adult, [id number] Referrals: Sonam Schneider PA-C [Primary Care Provider] - Forms: ED Department Discharge Additional Instructions: Continue neb treatments every 4-6 hours, continue other medications as previously prescribed. Vaporizer or steam as needed, Phenergan with codeine cough medication at bedtime if needed to help you sleep. Follow-up clinic in about 5-7 days for recheck, call tomorrow morning for appointment. - My Orders Last 24 Hours: My Active Orders 10/12/17 16:00 RT Aerosol Therapy [RC] ASDIRECTED 10/12/17 16:07 Chest 1V Frontal [CR] Stat 10/12/17 16:42 RT Aerosol Therapy [RC] ASDIRECTED - Assessment/Plan Last 24 Hours: My Active Orders 10/12/17 16:00 RT Aerosol Therapy [RC] ASDIRECTED 10/12/17 16:07 Chest 1V Frontal [CR] Stat 10/12/17 16:42 RT Aerosol Therapy [RC] ASDIRECTED
[2017-10-12] MEDS ORDERED: Albuterol 0.083% 2.5 MG/3 ML Neb Soln NEB ONE (16:42)
[2017-10-12] MEDS ORDERED: LORazepam 0.5 MG Tab PO ONE (16:42)
--- NOTE | 2017-10-13 09:18 | CR ---
Chest: Portable view of the chest was obtained. Comparison: Prior chest x-ray of 04/10/15. Heart size and mediastinum are normal. Lungs are clear. Bony structures are grossly intact. Impression: 1. Nothing acute is appreciated on portable chest x-ray. Diagnostic code #1
== END 2017-10-12 17:25 | disposition home or self-care (01) ==
LOC: JD.ED 15:54
DX: J45.901 Unspecified asthma with (acute) exacerbation (principal); E78.00 Pure hypercholesterolemia, unspecified; I10 Essential (primary) hypertension; K21.9 Gastro-esophageal reflux disease without esophagitis; E11.9 Type 2 diabetes mellitus without complications; Z91.041 Radiographic dye allergy status; Z88.1 Allergy status to other antibiotic agents; Z91.030 Bee allergy status; Z88.8 Allergy status to other drugs, medicaments and biological substances; Z91.040 Latex allergy status; Z88.0 Allergy status to penicillin; Z88.2 Allergy status to sulfonamides; Z91.048 Other nonmedicinal substance allergy status; Z79.899 Other long term (current) drug therapy; Z87.891 Personal history of nicotine dependence
CPT/HCPCS: 36415; 71045; 85025; 86140; 94640; 99285; A9270; 99283

== ENCOUNTER 2018-06-22 11:00 | Emergency (ER) | payer MEDICAID ==
[2018-06-22] MEDS ORDERED: Sodium Chloride 0.9% 10 ML Syringe FLUSH PRN (11:17)
[2018-06-22] MEDS ORDERED: Albuterol/Ipratropium 3.0-0.5 MG/3 ML Neb Soln NEB ONE (11:18)
[2018-06-22] MEDS ORDERED: methylPREDNISolone Sodium Succinate 125 MG/2 ML SDV IVPUSH ONE (11:19)
[2018-06-22] MEDS ORDERED: diphenhydrAMINE 50 MG/ML SDV IVPUSH ONE (11:20)
[2018-06-22 11:28] VITALS: BP 135/83
--- NOTE | 2018-06-22 11:32 | EDM.PDOC ---
ED HPI GENERAL MEDICAL PROBLEM - General Chief Complaint: Allergic Reaction Stated Complaint: SOB POST INFUSION TREATMENT Time Seen by Provider: 06/22/18 11:10 Source of Information: Reports: Patient History Limitations: Reports: No Limitations - History of Present Illness INITIAL COMMENTS - FREE TEXT/NARRATIVE: The patient was over at the infusion center at [place] and she was getting an infusion of xolair. This is being given to her for bad allergies and asthma. Dr Levine is the doctor that ordered this. She started having trouble breathing and felt swelling in her throat. She also had some wheezing. She has never had this medicine before. She also has some tightness in her chest. She has no abdominal pain, nausea or vomiting. Onset: Sudden Duration: Minutes: Location: Reports: Chest Quality: Reports: Other (Tightness) Severity: Mild Improves with: Reports: None Worsens with: Reports: None Associated Symptoms: Reports: Chest Pain, Shortness of Breath. Denies: Cough, Fever/Chills, Headaches, Nausea/Vomiting Chest Pain Score (Numeric/FACES): 5 - Related Data Allergies Allergy/AdvReac Type Severity Reaction Status Date / Time amoxicillin [From Augmentin] Allergy Other Verified 06/22/18 11:43 aspirin Allergy Other Verified 06/22/18 11:43 bee venom protein (honey bee) Allergy Other Verified 06/22/18 11:43 cefuroxime Allergy Other Verified 06/22/18 11:43 cephalexin Allergy Other Verified 06/22/18 11:43 ciprofloxacin [From Cipro] Allergy Other Verified 06/22/18 11:43 clavulanic acid Allergy Other Verified 06/22/18 11:43 [From Augmentin] doxycycline Allergy Other Verified 06/22/18 11:43 honey Allergy Other Verified 06/22/18 11:43 hydrogen peroxide Allergy Other Verified 06/22/18 11:43 latex Allergy Other Verified 06/22/18 11:43 methylprednisolone Allergy Swollen Verified 06/22/18 12:08 [From Solu-Medrol] Eyes metronidazole Allergy Other Verified 06/22/18 11:43 nitrofurantoin Allergy Other Verified 06/22/18 11:43 Penicillins Allergy Other Verified 06/22/18 11:43 prednisone Allergy Other Verified 06/22/18 11:43 procaine Allergy Other Verified 06/22/18 11:43 soap Allergy Other Verified 06/22/18 11:43 Sulfa (Sulfonamide Allergy Other Verified 06/22/18 11:43 Antibiotics) Tetracyclines Allergy Other Verified 06/22/18 11:43 tropicamide Allergy Other Verified 06/22/18 11:43 antiperspirants Allergy Other Uncoded 06/22/18 11:43 diagnostic x-ray materials Allergy Other Uncoded 06/22/18 11:43 fragances Allergy Other Uncoded 06/22/18 11:43 hmg-coa-r inhibitors Allergy Other Uncoded 06/22/18 11:43 metals Allergy Other Uncoded 06/22/18 11:43 pickled meat Allergy Other Uncoded 06/22/18 11:43 yung canina extract Allergy Other Uncoded 06/22/18 11:43 shampoos Allergy Other Uncoded 06/22/18 11:43 ED ROS ALLERGIC REACTION - Review of Systems Review Of Systems: See Below Constitutional: Reports: No Symptoms HEENT: Reports: No Symptoms Respiratory: Reports: Shortness of Breath, Wheezing. Denies: Cough Cardiovascular: Reports: No Symptoms Endocrine: Reports: No Symptoms GI/Abdominal: Reports: No Symptoms : Reports: No Symptoms Musculoskeletal: Reports: No Symptoms ED EXAM GENERAL NO PERIP PULSE - Physical Exam Exam: See Below Exam Limited By: No Limitations General Appearance: Alert, No Apparent Distress Ears: Normal External Exam Nose: Normal Inspection Head: Atraumatic, Normocephalic Neck: Normal Inspection, Supple, Non-Tender Respiratory/Chest: No Respiratory Distress, Wheezing Cardiovascular: Regular Rate, Rhythm, No Edema, No Murmur GI/Abdominal: Soft, Non-Tender, No Organomegaly, No Mass Back Exam: Normal Inspection Extremities: Normal Inspection EKG INTERPRETATION EKG Date: 06/22/18 Time: 11:26 Rhythm: NSR Rate (Beats/Min): 81 Mikana: Normal P-Wave: Present QRS: Normal ST-T: Normal QT: Normal Course - Vital Signs Last Recorded V/S: Last Vital Signs Temp 97.3 F 06/22/18 11:20 Pulse 78 06/22/18 11:20 Resp 18 06/22/18 11:20 BP 135/83 06/22/18 11:20 Pulse Ox 99 06/22/18 11:20 - Orders/Labs/Meds Orders: Active Orders 24 hr Category Date Time Status Cardiac Monitoring [RC] . DIRECTED Care 06/22/18 11:17 Active EKG Documentation Completion [RC] STAT Care 06/22/18 11:18 Active Peripheral IV Care [RC] . DIRECTED Care 06/22/18 11:18 Active RT Aerosol Therapy [RC] ASDIRECTED Care 06/22/18 11:19 Active Sodium Chloride 0.9% [Saline Flush] Med 06/22/18 11:17 Active 10 ml FLUSH ASDIRECTED PRN Peripheral IV Insertion Adult [OM.PC] Stat Oth 06/22/18 11:17 Ordered Medication Orders Sodium Chloride (Saline Flush) 10 ml FLUSH ASDIRECTED PRN PRN Reason: Keep Vein Open Last Admin: 06/22/18 11:36 Dose: 10 ml Labs: Laboratory Tests 06/22/18 06/22/18 Range/Units 11:30 11:30 WBC 7.41 (3.98-10.04) K/mm3 RBC 4.74 (3.98-5.22) M/mm3 Hgb 14.0 (11.2-15.7) gm/L Hct 43.5 (34.1-44.9) % MCV 91.8 (79.4-94.8) fl MCH 29.5 (25.6-32.2) pg MCHC 32.2 (32.2-35.5) g/dl RDW Std Deviation 49.2 H (36.4-46.3) fL Plt Count 213 (182-369) K/mm3 MPV 10.6 (9.4-12.3) fl Neut % (Auto) 45.4 (34.0-71.1) % Lymph % (Auto) 45.5 (19.3-51.7) % [place] % (Auto) 4.5 L (4.7-12.5) % Eos % (Auto) 3.9 (0.7-5.8) Baso % (Auto) 0.4 (0.1-1.2) % Neut # (Auto) 3.37 (1.56-6.13) K/mm3 Lymph # (Auto) 3.37 (1.18-3.74) K/mm3 [place] # (Auto) 0.33 (0.24-0.36) K/mm3 Eos # (Auto) 0.29 (0.04-0.36) K/mm3 Baso # (Auto) 0.03 (0.01-0.08) K/mm3 Sodium 142 (136-145) mEq/L Potassium 4.1 (3.5-5.1) mEq/L Chloride 104 (98-107) mEq/L Carbon Dioxide 30 (21-32) mEq/L Anion Gap 12.1 (5-15) BUN 10 (7-18) mg/dL Creatinine 0.8 (0.55-1.02) mg/dL Est Cr Clr Drug Dosing 71.84 mL/min Estimated GFR (MDRD) > 60 (>60) mL/min BUN/Creatinine Ratio 12.5 L (14-18) Glucose 151 H (74-106) mg/dL Calcium 9.4 (8.5-10.1) mg/dL Total Bilirubin 0.4 (0.2-1.0) mg/dL AST 101 H (15-37) U/L ALT 111 H (14-59) U/L Alkaline Phosphatase 159 H (46-116) U/L Troponin I < 0.017 (0.00-0.056) ng/mL Total Protein 7.9 (6.4-8.2) g/dl Albumin 3.9 (3.4-5.0) g/dl Globulin 4.0 gm/dL Albumin/Globulin Ratio 1.0 (1-2) Meds: Medications Generic Name Dose Route Start Last Admin Trade Name Maria Luisa PRN Reason Stop Dose Admin Sodium Chloride 10 ml 06/22/18 11:17 06/22/18 11:36 Saline Flush FLUSH 10 ml ASDIRECTED PRN Administration Keep Vein Open Discontinued Medications Generic Name Dose Route Start Last Admin Trade Name Maria Luisa PRN Reason Stop Dose Admin Albuterol/Ipratropium 3 ml 06/22/18 11:18 06/22/18 11:19 Duoneb 3.0-0.5 Mg/3 Ml NEB 06/22/18 11:19 3 ml ONETIME ONE Administration Diphenhydramine HCl 50 mg 06/22/18 11:20 06/22/18 11:33 Benadryl IVPUSH 06/22/18 11:21 50 mg ONETIME ONE Administration Famotidine 20 mg 06/22/18 11:58 06/22/18 12:04 Pepcid IVPUSH 06/22/18 11:59 20 mg ONETIME ONE Administration Famotidine Confirm 06/22/18 12:00 06/22/18 12:04 Pepcid Administered 06/22/18 12:01 Not Given Dose 20 mg .ROUTE .STK-MED ONE Hydromorphone HCl 0.5 mg 06/22/18 12:50 06/22/18 13:07 Dilaudid IVPUSH 06/22/18 12:51 0.5 mg ONETIME ONE Administration Methylprednisolone Sodium Succinate 125 mg 06/22/18 11:19 06/22/18 11:45 Solu-Medrol IVPUSH 06/22/18 11:20 125 mg ONETIME ONE Administration - Re-Assessments/Exams Free Text/Narrative Re-Assessment/Exam: 06/22/18 11:33 I ordered an IV saline lock, EKG, CXR, labs, duoneb, solu-medrol 125mg IV, and benadryl 50mg IV. Her EKG shows a NSR with no acute changes. 06/22/18 13:59 The patient is allergic to prednisone but she did not think she was allergic to solu-medrol. When she got that her skin got red and she was itchy. I gave her some pepcid. She later was doing better but had more burning so I ordered dilaudid 0.5mg IV. She feels better now. Departure - Departure Time of Disposition: 14:05 Disposition: Home, Self-Care 01 Condition: Good Clinical Impression: Allergic reaction caused by a drug Qualifiers: Encounter type: initial encounter Qualified Code(s): T78.40XA - Allergy, unspecified, initial encounter - Discharge Information *PRESCRIPTION DRUG MONITORING PROGRAM REVIEWED*: Not Applicable *COPY OF PRESCRIPTION DRUG MONITORING REPORT IN PATIENT KATHARINE: Not Applicable Referrals: Sonam Schneider PA-C [Primary Care Provider] - 1 Week Forms: ED Department Discharge Additional Instructions: Take benadryl as needed for any itching or swelling. Take pepcid daily for 5 days. Please return if you are worse. Follow up with your doctor within 1 week. - My Orders Last 24 Hours: My Active Orders 06/22/18 11:17 Cardiac Monitoring [RC] . DIRECTED Sodium Chloride 0.9% [Saline Flush] 10 ml FLUSH ASDIRECTED PRN Peripheral IV Insertion Adult [OM.PC] Stat 06/22/18 11:18 EKG Documentation Completion [RC] STAT Peripheral IV Care [RC] . DIRECTED 06/22/18 11:19 RT Aerosol Therapy [RC] ASDIRECTED - Assessment/Plan Last 24 Hours: My Active Orders 06/22/18 11:17 Cardiac Monitoring [RC] . DIRECTED Sodium Chloride 0.9% [Saline Flush] 10 ml FLUSH ASDIRECTED PRN Peripheral IV Insertion Adult [OM.PC] Stat 06/22/18 11:18 EKG Documentation Completion [RC] STAT Peripheral IV Care [RC] . DIRECTED 06/22/18 11:19 RT Aerosol Therapy [RC] ASDIRECTED
[2018-06-22] MEDS ORDERED: Famotidine 20 MG/2 ML SDV IVPUSH ONE (11:58)
[2018-06-22] MEDS ORDERED: Famotidine 20 MG/2 ML SDV ONE (12:00)
--- NOTE | 2018-06-22 12:48 | CR ---
Chest: Portable view of the chest was obtained. Comparison: No previous study. Heart size and mediastinum are normal. Lung markings are mildly increased most likely accentuated from portable technique. Lungs otherwise are clear. Bony structures are grossly intact. Impression: 1. Nothing acute is suspected on portable chest x-ray. Diagnostic code #2
[2018-06-22] MEDS ORDERED: HYDROmorphone 1 MG/ML Syringe IVPUSH ONE (12:50)
== END 2018-06-22 14:19 | disposition home or self-care (01) ==
LOC: JD.ED 11:00 → EDUNIT# 11:00 → JD.ED 14:19
DX: R06.00 Dyspnea, unspecified (principal); R06.2 Wheezing; T38.0X5A Adverse effect of glucocorticoids and synthetic analogues, initial encounter; Z88.1 Allergy status to other antibiotic agents; Z88.6 Allergy status to analgesic agent; Z91.040 Latex allergy status; Z88.8 Allergy status to other drugs, medicaments and biological substances; Z91.09 Other allergy status, other than to drugs and biological substances; Z88.0 Allergy status to penicillin; Z91.018 Allergy to other foods
CPT/HCPCS: 36415; 71045; 80053; 84484; 85025; 93005; 94640; 96374; 96375; 99284; J1170; J1200; J2930; J3490; J7620-GY

== ENCOUNTER 2018-10-23 16:08 | Emergency (ER) | payer MEDICAID ==
[2018-10-23 17:05] VITALS: BP 114/78
--- NOTE | 2018-10-23 18:01 | EDM.PDOC ---
ED HPI GENERAL MEDICAL PROBLEM - General Chief Complaint: Genitourinary Problem Stated Complaint: SENT FROM [facility] Time Seen by Provider: 10/23/18 18:01 Source of Information: Reports: Patient History Limitations: Reports: No Limitations - History of Present Illness INITIAL COMMENTS - FREE TEXT/NARRATIVE: Patient is a 52-year-old female with a long history of UTI infections who presents ED complaining of painful urination with some blood clots present. In addition she also complains of some chronic left-sided CVA midthoracic back pain. No worse with recent infection. States symptoms have been going on for the past 3 weeks. She was seen at the clinic this past and was prescribed Macrobid. Patient states she normally is not prescribed Macrobid since she has allergic reaction to it. With taking this medication along with many other antibiotics she become short of breath. She took 1 pill and started having breathing issues 3 minutes later. She feels as if her urinary symptoms are getting worse. She complains of increased frequency and decrease amount. Again at times she does have some blood clots present. As stated above patient does have some pain nchronic along the left CVA region. Patient states she had surgery on her left kidney quite some time ago and due to the surgery has this discomfort. It is unchanged. Patient denies any fevers, nausea/vomiting, abdominal pain, change in eating or drinking habits, dark tarry or bloody stools , constipation, diarrhea, chest pain, shortness of breath, and/or any additional complaints. Bladder Pain Score (Numeric/FACES): 8 - Related Data Allergies Allergy/AdvReac Type Severity Reaction Status Date / Time Iodinated Contrast- Oral and Allergy Severe Airway Verified 10/23/18 19:25 IV Dye Tightness [Iodinated Contrast Media - IV Dye] amoxicillin [From Augmentin] Allergy Other Unverified 10/23/18 19:25 amoxicillin trihydrate Allergy Airway Verified 10/23/18 19:25 [From Augmentin] Tightness aspirin Allergy Airway Verified 10/23/18 19:25 Tightness bee venom protein (honey bee) Allergy Cannot Verified 10/23/18 19:25 Remember cefuroxime Allergy Other Unverified 10/23/18 19:25 cefuroxime axetil Allergy Airway Verified 10/23/18 19:25 [From Ceftin] Tightness cephalexin Allergy Other Unverified 10/23/18 19:25 cephalexin monohydrate Allergy Airway Verified 10/23/18 19:25 [From Keflex] Tightness ciprofloxacin [From Cipro] Allergy Airway Verified 10/23/18 19:25 Tightness ciprofloxacin HCl Allergy Airway Verified 10/23/18 19:25 [From Cipro] Tightness clavulanic acid Allergy Other Unverified 10/23/18 19:25 [From Augmentin] doxycycline Allergy Airway Verified 10/23/18 19:25 Tightness honey Allergy Hives Verified 10/23/18 19:25 hydrogen peroxide Allergy Other Unverified 10/23/18 19:25 latex Allergy Airway Verified 10/23/18 19:25 Tightness methylprednisolone Allergy Swollen Unverified 10/23/18 19:25 [From Solu-Medrol] Eyes metronidazole [From Flagyl] Allergy Airway Verified 10/23/18 19:25 Tightness nitrofurantoin Allergy Airway Verified 10/23/18 19:25 [From Macrobid] Tightness nitrofurantoin Allergy Airway Verified 10/23/18 19:25 macrocrystalline Tightness [From Macrobid] Penicillins Allergy Airway Verified 10/23/18 19:25 Tightness perfume Allergy Cannot Verified 10/23/18 19:25 Remember potassium clavulanate Allergy Airway Verified 10/23/18 19:25 [From Augmentin] Tightness prednisone Allergy Cannot Verified 10/23/18 19:25 Remember procaine Allergy Other Unverified 10/23/18 19:25 soap Allergy Cannot Verified 10/23/18 19:25 Remember Tchuwtg-Flp-Xjw Reductase Allergy Cannot Verified 10/23/18 19:25 Inhibitor Remember strawberry [Rogers] Allergy Airway Verified 10/23/18 19:25 Tightness Sulfa (Sulfonamide Allergy Other Unverified 10/23/18 19:25 Antibiotics) sulfamethoxazole Allergy Airway Verified 10/23/18 19:25 [From Bactrim] Tightness tetracycline [Tetracycline] Allergy Airway Verified 10/23/18 19:25 Tightness Tetracyclines Allergy Other Unverified 10/23/18 19:25 trimethoprim [From Bactrim] Allergy Airway Verified 10/23/18 19:25 Tightness tropicamide Allergy Other Unverified 10/23/18 19:25 antiperspirants Allergy Other Uncoded 10/23/18 19:25 deodorants Allergy Cannot Uncoded 10/23/18 19:25 Remember diagnostic x-ray materials Allergy Other Uncoded 10/23/18 19:25 fragances Allergy Other Uncoded 10/23/18 19:25 hmg-coa-r inhibitors Allergy Other Uncoded 10/23/18 19:25 metals Allergy Cannot Uncoded 10/23/18 19:25 Remember peroxide Allergy Blisters Uncoded 10/23/18 19:25 pickled meat Allergy Other Uncoded 10/23/18 19:25 yung canina extract Allergy Other Uncoded 10/23/18 19:25 sausage Allergy Cannot Uncoded 10/23/18 19:25 Remember shampoo Allergy Cannot Uncoded 10/23/18 19:25 Remember shampoos Allergy Other Uncoded 10/23/18 19:25 steroids Allergy Other Uncoded 10/23/18 19:25 Home Meds: Home Meds Albuterol Sulfate [Proair Hfa] 2 puff INH Q4H PRN 01/07/17 [History] DULoxetine [Cymbalta] 60 mg PO DAILY 01/07/17 [History] EPINEPHrine [Epipen] 1 dose IM ASDIRECTED PRN 01/07/17 [History] Fish Oil/[place]-3 Fatty Acids [Fish Oil 1,000 MG] 2 g PO DAILY 01/07/17 [History] Furosemide [Lasix] 20 mg PO DAILY PRN 01/07/17 [History] Inulin [Fiber Choice] 3 gm PO DAILY 01/07/17 [History] Metoprolol Tartrate [Lopressor] 100 mg PO BID 01/07/17 [History] atorvaSTATin [Lipitor] 40 mg PO DAILY 01/07/17 [History] diphenhydrAMINE HCl [Benadryl] 50 mg PO BEDTIME 01/07/17 [History] sitaGLIPtin Phos/Metformin HCl [Janumet 50-1,000 MG] 1 tab PO BID 01/07/17 [ History] Methylcellulose [Citrucel] 500 mg PO DAILY 03/08/17 [History] Pantoprazole Sodium [Protonix] 20 mg PO DAILY 03/08/17 [History] Albuterol [Proventil Neb Soln] 1 dose NEB QID 08/02/17 [History] Montelukast [Singulair] 10 mg PO DAILY 08/03/17 [History] Pregabalin [Lyrica] 300 mg PO DAILY 02/01/18 [History] Tiotropium [place] [Spiriva Respimat] 1 puff INH BID 02/01/18 [History] raNITIdine HCl [Zantac] 150 mg PO DAILY 02/01/18 [History] Azithromycin [Zithromax] 250 mg PO DAILY #7 tab 10/23/18 [Rx] Cetirizine [ZyrTEC] 10 mg PO DAILY 10/23/18 [History] Insulin Glarg,Human.Rec.Analog [Lantus Solostar] 58 units SUBCUT BEDTIME [History] Past Medical History HEENT History: Reports: Impaired Vision, Other (See Below) Other HEENT History: patient has upper denture and glasses Cardiovascular History: Reports: High Cholesterol, Hypertension Other Cardiovascular History: chest pain, peripheral artery disease Respiratory History: Reports: Asthma, Sleep Apnea Other Respiratory History: low o2 level when sleeping Gastrointestinal History: Reports: Diverticulosis, GERD Other Gastrointestinal History: gastric ulcers, rectal bleeding, abdominal pain , fatty liver infiltrate Genitourinary History: Reports: Other (See Below), Renal Calculus Other Genitourinary History: perineal pain 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: Musculoskeletal History: Reports: Back Pain, Chronic Other Musculoskeletal History: peripheral neuropathy Neurological History: Reports: Migraines Psychiatric History: Reports: Anxiety, Panic Attack Endocrine/Metabolic History: Reports: Diabetes, Type II Hematologic History: Reports: None Immunologic History: Reports: None Oncologic (Cancer) History: Reports: Cervix Dermatologic History: Reports: None - Infectious Disease History Infectious Disease History: Reports: None - Past Surgical History Head Surgeries/Procedures: Reports: None HEENT Surgical History: Reports: None Musculoskeletal Surgical History: Reports: Carpal Tunnel Oncologic Surgical History: Reports: None Dermatological Surgical History: Reports: None Social & Family History - Tobacco Use Smoking Status *Q: Never Smoker - Caffeine Use Caffeine Use: Reports: Coffee - Recreational Drug Use Recreational Drug Use: No ED ROS GENERAL - Review of Systems Review Of Systems: ROS reveals no pertinent complaints other than HPI. ED EXAM, RENAL/ - Physical Exam Exam: See Below Exam Limited By: No Limitations General Appearance: Alert, WD/WN, No Apparent Distress Ears: Hearing Grossly Normal Nose: Normal Inspection Throat/Mouth: Normal Voice, No Airway Compromise Head: Atraumatic, Normocephalic Neck: Normal Inspection, Supple Respiratory/Chest: No Respiratory Distress, Lungs Clear, Normal Breath Sounds, No Accessory Muscle Use, Chest Non-Tender Cardiovascular: Normal Peripheral Pulses, Regular Rate, Rhythm, No Murmur GI/Abdominal: Normal Bowel Sounds, Soft, Non-Tender, No Organomegaly, No Distention Back Exam: Normal Inspection, CVA Tenderness (L). No: CVA Tenderness (R) Extremities: Normal Inspection, Normal Range of Motion, Non-Tender Neurological: Alert, Oriented, CN II-XII Intact, Normal Cognition, No Motor/ Sensory Deficits Psychiatric: Normal Affect, Normal Mood Skin Exam: Warm, Dry, Intact, Normal Color Course - Vital Signs Last Recorded V/S: Last Vital Signs Temp 98.4 F 10/23/18 17:00 Pulse 90 10/23/18 17:00 Resp 18 10/23/18 17:00 BP 114/78 10/23/18 17:00 Pulse Ox 99 10/23/18 17:00 - Orders/Labs/Meds Orders: Active Orders 24 hr Category Date Time Status CULTURE URINE [RM] Stat Lab 10/23/18 17:51 Received Labs: Laboratory Tests 10/23/18 10/23/18 10/23/18 Range/Units 17:50 18:25 18:25 WBC 7.52 (3.98-10.04) K/mm3 RBC 4.79 (3.98-5.22) M/mm3 Hgb 14.2 (11.2-15.7) gm/L Hct 43.1 (34.1-44.9) % MCV 90.0 (79.4-94.8) fl MCH 29.6 (25.6-32.2) pg MCHC 32.9 (32.2-35.5) g/dl RDW Std Deviation 46.6 H (36.4-46.3) fL Plt Count 233 (182-369) K/mm3 MPV 10.6 (9.4-12.3) fl Neutrophils % (Manual) 50 (40-60) % Band Neutrophils % 0 (0-10) % Lymphocytes % (Manual) 50 H (20-40) % Atypical Lymphs % 0 % Monocytes % (Manual) 0 L (2-10) % Eosinophils % (Manual) 0 L (0.7-5.8) % Basophils % (Manual) 0 L (0.1-1.2) Platelet Estimate Adequate Plt Morphology Comment Normal RBC Morph Comment Normal Sodium 142 (136-145) mEq/L Potassium 4.3 (3.5-5.1) mEq/L Chloride 104 (98-107) mEq/L Carbon Dioxide 27 (21-32) mEq/L Anion Gap 15.3 H (5-15) BUN 14 (7-18) mg/dL Creatinine 0.8 (0.55-1.02) mg/dL Est Cr Clr Drug Dosing 71.84 mL/min Estimated GFR (MDRD) > 60 (>60) mL/min BUN/Creatinine Ratio 17.5 (14-18) Glucose 235 H (74-106) mg/dL Calcium 9.3 (8.5-10.1) mg/dL Total Bilirubin 0.5 (0.2-1.0) mg/dL AST 69 H (15-37) U/L ALT 88 H (14-59) U/L Alkaline Phosphatase 176 H (46-116) U/L C-Reactive Protein 0.2 (<1.0) mg/dL Total Protein 7.7 (6.4-8.2) g/dl Albumin 3.8 (3.4-5.0) g/dl Globulin 3.9 gm/dL Albumin/Globulin Ratio 1.0 (1-2) Urine Color Yellow (Yellow) Urine Appearance Clear (Clear) Urine pH 6.0 (5.0-8.0) Ur Specific [place] > or = 1.030 (1.005-1.030) Urine Protein Trace H (Negative) Urine Glucose (UA) Negative (Negative) Urine Ketones Negative (Negative) Urine Occult Blood Negative (Negative) Urine Nitrite Negative (Negative) Urine Bilirubin Negative (Negative) Urine Urobilinogen 0.2 (0.2-1.0) Ur Leukocyte Esterase Negative (Negative) Urine RBC 0-5 (0-5) /hpf Urine WBC 0-5 (0-5) /hpf Ur Squamous Epith Cells 10-20 H (0-5) /hpf Urine Bacteria Few (FEW) /hpf Urine Mucus Few (FEW) /hpf Meds: Medications Discontinued Medications Generic Name Dose Route Start Last Admin Trade Name Freq PRN Reason Stop Dose Admin Azithromycin 500 mg 10/24/18 19:36 Zithromax PO 10/24/18 19:37 ONETIME ONE Azithromycin 500 mg 10/23/18 19:36 10/23/18 19:49 Zithromax PO 10/23/18 19:37 500 mg ONETIME ONE Administration - Re-Assessments/Exams Free Text/Narrative Re-Assessment/Exam: On exam patient's vital signs are stable. She is not tachycardic and afebrile. She has history of recurrent UTIs and has been on many antibiotics with allergies to them. She took Macrobid 1 and developed some throat tightness. She has a history of allergies to Macrobid. She complains of some painful urination for the past 3 weeks. She with the clinic this past and was prescribed the Macrobid. States at times she does have some blood clots within her urine. She has a history of chronic back pain related to her low back and mid thoracic region. This is unchanged with recent symptoms. There has been no documented fever although at times she does feel warm. She denies any significant abdominal pain, change in eating and drinking habits, dark tarry stools, bloody stools, chest pain, shortness of breath, or nausea or vomiting. Pain to the left CVA per patient is constant unchanged worsened with palpation and movement. No recent change. Patient had no labs with recent visit. Labs reviewed: CBC essentially normal. Chem 14 such and normal minus AG 13.3, glucose 235, AST 69, AST 88, alk phosphatase 176, normal CRP 0.2, UA trace protein with squamous epithelial cells 10-20. Reviewed her urinalysis obtain 11/11/2018. Nitrates positive, leukocyte esterase trace, wbc's urine 6-20, bacteria many. Urine cultures sensitive to everything for Escherichia coli. Although patients UA is negative today. With patients history Dr. Valdovinos recommends discharging patient on azithromycin. Patient has been on azithromycin in the past. Ordered 500 mg here in the ED. Will discharge patient home with a course of azithromycin 250 mg in the next 7 days. Departure - Departure Time of Disposition: 19:47 Disposition: Home, Self-Care 01 Condition: Good Clinical Impression: UTI, Urinary tract infectious disease - Discharge Information Prescriptions: Azithromycin [Zithromax] 250 mg PO DAILY #7 tab Instructions: Urinary Tract Infection, Adult, [id number] Referrals: Sonam Schneider PA-C [Primary Care Provider] - Forms: ED Department Discharge Additional Instructions: Push the fluids. Take the full course of azithromycin as prescribed. Stop taking the Macrobid. See your PCP 2 days after conclusion of antibiotic therapy to ensure resolution. Please return back to the ED if you develop any new or worsening symptoms. - My Orders Last 24 Hours: My Active Orders 10/23/18 17:51 CULTURE URINE [RM] Stat - Assessment/Plan Last 24 Hours: My Active Orders 10/23/18 17:51 CULTURE URINE [RM] Stat
[2018-10-23] MEDS ORDERED: Azithromycin 250 MG Tab PO ONE (19:36)
[2018-10-24] MEDS ORDERED: Azithromycin 250 MG Tab PO ONE (19:36)
== END 2018-10-23 20:00 | disposition home or self-care (01) ==
LOC: JD.ED 16:08
DX: N39.0 Urinary tract infection, site not specified (principal); I10 Essential (primary) hypertension; E78.00 Pure hypercholesterolemia, unspecified; K21.9 Gastro-esophageal reflux disease without esophagitis; E11.9 Type 2 diabetes mellitus without complications; Z79.4 Long term (current) use of insulin; Z79.899 Other long term (current) drug therapy; Z88.2 Allergy status to sulfonamides; Z91.09 Other allergy status, other than to drugs and biological substances; Z88.8 Allergy status to other drugs, medicaments and biological substances; Z88.1 Allergy status to other antibiotic agents; Z88.6 Allergy status to analgesic agent; Z88.5 Allergy status to narcotic agent; Z91.018 Allergy to other foods; Z91.041 Radiographic dye allergy status
CPT/HCPCS: 36415; 80053; 81001; 85007; 85027; 86140; 87086; 99283; A9270

== ENCOUNTER 2018-12-28 10:43 | Emergency (ER) | payer MEDICAID ==
--- NOTE | 2018-12-28 13:22 | EDM.PDOC ---
ED HPI GENERAL MEDICAL PROBLEM - General Chief Complaint: Neck Problem Stated Complaint: HEAD AND NECK PAIN Time Seen by Provider: 12/28/18 13:22 - History of Present Illness INITIAL COMMENTS - FREE TEXT/NARRATIVE: 53-year-old female presents emergency room with neck pain. Patient denies any significant trauma. However yesterday she had a coughing fit and felt something pop on the left side of her neck. And since that time she's developed increased tightness on that side and she does not want to move her neck. She has no numbness or tingling down her arms or other extremities or elsewhere. It hurts for her to move her jaw. Treatments [employer]: Reports: Other (see below) Other Treatments [employer]: volatern cream Left Neck Pain Score (Numeric/FACES): 9 - Related Data Allergies Allergy/AdvReac Type Severity Reaction Status Date / Time Iodinated Contrast Media Allergy Severe Airway Verified 10/23/18 19:25 [Iodinated Contrast Media - Tightness IV Dye] amoxicillin [From Augmentin] Allergy Other Unverified 10/23/18 19:25 amoxicillin trihydrate Allergy Airway Verified 10/23/18 19:25 [From Augmentin] Tightness aspirin Allergy Airway Verified 10/23/18 19:25 Tightness bee venom protein (honey bee) Allergy Cannot Verified 10/23/18 19:25 Remember cefuroxime Allergy Other Unverified 10/23/18 19:25 cefuroxime axetil Allergy Airway Verified 10/23/18 19:25 [From Ceftin] Tightness cephalexin Allergy Other Unverified 10/23/18 19:25 cephalexin monohydrate Allergy Airway Verified 10/23/18 19:25 [From Keflex] Tightness ciprofloxacin [From Cipro] Allergy Airway Verified 10/23/18 19:25 Tightness ciprofloxacin HCl Allergy Airway Verified 10/23/18 19:25 [From Cipro] Tightness clavulanic acid Allergy Other Unverified 10/23/18 19:25 [From Augmentin] doxycycline Allergy Airway Verified 10/23/18 19:25 Tightness honey Allergy Hives Verified 10/23/18 19:25 hydrogen peroxide Allergy Other Unverified 10/23/18 19:25 latex Allergy Airway Verified 10/23/18 19:25 Tightness methylprednisolone Allergy Swollen Unverified 10/23/18 19:25 [From Solu-Medrol] Eyes metronidazole [From Flagyl] Allergy Airway Verified 10/23/18 19:25 Tightness nitrofurantoin Allergy Airway Verified 10/23/18 19:25 [From Macrobid] Tightness nitrofurantoin Allergy Airway Verified 10/23/18 19:25 macrocrystalline Tightness [From Macrobid] Penicillins Allergy Airway Verified 10/23/18 19:25 Tightness perfume Allergy Cannot Verified 10/23/18 19:25 Remember potassium clavulanate Allergy Airway Verified 10/23/18 19:25 [From Augmentin] Tightness prednisone Allergy Cannot Verified 10/23/18 19:25 Remember procaine Allergy Other Unverified 10/23/18 19:25 soap Allergy Cannot Verified 10/23/18 19:25 Remember Kweivzh-Isa-Tix Reductase Allergy Cannot Verified 10/23/18 19:25 Inhibitor Remember strawberry [[place]] Allergy Airway Verified 10/23/18 19:25 Tightness Sulfa (Sulfonamide Allergy Other Unverified 10/23/18 19:25 Antibiotics) sulfamethoxazole Allergy Airway Verified 10/23/18 19:25 [From Bactrim] Tightness tetracycline [Tetracycline] Allergy Airway Verified 10/23/18 19:25 Tightness Tetracyclines Allergy Other Unverified 10/23/18 19:25 trimethoprim [From Bactrim] Allergy Airway Verified 10/23/18 19:25 Tightness tropicamide Allergy Other Unverified 10/23/18 19:25 antiperspirants Allergy Other Uncoded 10/23/18 19:25 deodorants Allergy Cannot Uncoded 10/23/18 19:25 Remember diagnostic x-ray materials Allergy Other Uncoded 10/23/18 19:25 fragances Allergy Other Uncoded 10/23/18 19:25 hmg-coa-r inhibitors Allergy Other Uncoded 10/23/18 19:25 metals Allergy Cannot Uncoded 10/23/18 19:25 Remember peroxide Allergy Blisters Uncoded 10/23/18 19:25 pickled meat Allergy Other Uncoded 10/23/18 19:25 yung canina extract Allergy Other Uncoded 10/23/18 19:25 sausage Allergy Cannot Uncoded 10/23/18 19:25 Remember shampoo Allergy Cannot Uncoded 10/23/18 19:25 Remember shampoos Allergy Other Uncoded 10/23/18 19:25 steroids Allergy Other Uncoded 10/23/18 19:25 Home Meds: Home Meds Albuterol Sulfate [Proair Hfa] 2 puff INH Q4H PRN 01/07/17 [History] DULoxetine [Cymbalta] 30 mg PO DAILY 01/07/17 [History] EPINEPHrine [Epipen] 1 dose IM ASDIRECTED PRN 01/07/17 [History] Furosemide [Lasix] 20 mg PO DAILY PRN 01/07/17 [History] Metoprolol Tartrate [Lopressor] 100 mg PO BID 01/07/17 [History] atorvaSTATin [Lipitor] 40 mg PO DAILY 01/07/17 [History] diphenhydrAMINE HCl [Benadryl] 50 mg PO BEDTIME 01/07/17 [History] sitaGLIPtin Phos/Metformin HCl [Janumet 50-1,000 MG] 1 tab PO BID 01/07/17 [ History] Pantoprazole Sodium [Protonix] 40 mg PO DAILY 03/08/17 [History] Albuterol [Proventil Neb Soln] 1 dose NEB QID 08/02/17 [History] Montelukast [Singulair] 10 mg PO DAILY 08/03/17 [History] Pregabalin [Lyrica] 300 mg PO DAILY 02/01/18 [History] Tiotropium [place] [Spiriva Respimat] 1 puff INH BID 02/01/18 [History] Cetirizine [ZyrTEC] 10 mg PO DAILY 10/23/18 [History] Insulin Glarg,Human.Rec.Analog [Lantus Solostar] 90 units SUBCUT BEDTIME [History] Azelastine HCl [Azelastine] 1 drop OP BID 12/28/18 [History] Celecoxib 200 mg PO DAILY 12/28/18 [History] Diclofenac Sodium [Voltaren 1%] 1 applic TOP BID 12/28/18 [History] Insulin Aspart [NovoLOG] 20 unit SQ WITHMEALSANDBED 12/28/18 [History] Ipratropium [Atrovent] 3 ml INH QID 12/28/18 [History] Mupirocin Oint [Bactroban Oint] 22 gm TP TID 12/28/18 [History] Olopatadine HCl [Patanase] 1 spray NS BID 12/28/18 [History] Pramipexole [Mirapex] 0.5 mg PO BEDTIME 12/28/18 [History] tiZANidine HCl [Tizanidine HCl] 2 mg PO Q8H #18 capsule 12/28/18 [Rx] traZODone HCl [Trazodone HCl] 100 mg PO BEDTIME 12/28/18 [History] Past Medical History HEENT History: Reports: Impaired Vision, Other (See Below) Other HEENT History: patient has upper denture and glasses Cardiovascular History: Reports: High Cholesterol, Hypertension Other Cardiovascular History: chest pain, peripheral artery disease Respiratory History: Reports: Asthma, Sleep Apnea Other Respiratory History: low o2 level when sleeping; pt wears c pap at noc Gastrointestinal History: Reports: Diverticulosis, GERD Other Gastrointestinal History: gastric ulcers, rectal bleeding, abdominal pain , fatty liver infiltrate Genitourinary History: Reports: Other (See Below), Renal Calculus Other Genitourinary History: 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: Musculoskeletal History: Reports: Back Pain, Chronic Other Musculoskeletal History: peripheral neuropathy Neurological History: Reports: Migraines Psychiatric History: Reports: Anxiety, Panic Attack Endocrine/Metabolic History: Reports: Diabetes, Type II Hematologic History: Reports: None Immunologic History: Reports: None Oncologic (Cancer) History: Reports: Cervix Dermatologic History: Reports: None - Infectious Disease History Infectious Disease History: Reports: None - Past Surgical History Head Surgeries/Procedures: Reports: None HEENT Surgical History: Reports: None Musculoskeletal Surgical History: Reports: Carpal Tunnel Oncologic Surgical History: Reports: None Dermatological Surgical History: Reports: None Social & Family History - Tobacco Use Smoking Status *Q: Never Smoker - Caffeine Use Caffeine Use: Reports: Coffee, Tea - Recreational Drug Use Recreational Drug Use: No ED ROS GENERAL - Review of Systems Review Of Systems: See Below Constitutional: Reports: No Symptoms HEENT: Reports: No Symptoms Respiratory: Reports: Cough (Mild) Cardiovascular: Reports: No Symptoms Endocrine: Reports: No Symptoms GI/Abdominal: Reports: No Symptoms ED EXAM, UPPER BACK/NECK PAIN - Physical Exam Exam: See Below Exam Limited By: No Limitations General Appearance: Alert, No Apparent Distress Eye Exam: Bilateral Eye: Normal Inspection Ears Exam: Normal External Exam, Normal Canal, Hearing Grossly Normal, Normal TMs Nose Exam: Normal Inspection, Normal Mucousa, No Blood Throat/Mouth Exam: Normal Inspection, Normal Oropharynx, Normal Voice, No Airway Compromise Head Exam: Atraumatic, Normocephalic Neck Exam: Normal Alignment, Normal Inspection, Other (The patient has no bony process discomfort or pain is in the left musculature mostly around the left sternocleidal mastoid muscle). No: Non-Tender, Full Range of Motion, Tender Midline Cardiovascular/Respiratory: Regular Rate, Rhythm, No M/R/G, Normal Breath Sounds , No Respiratory Distress Course - Vital Signs Last Recorded V/S: Last Vital Signs Temp 36.4 C 12/28/18 11:07 Pulse 99 12/28/18 11:07 Resp 20 12/28/18 11:07 BP 154/79 H 12/28/18 11:07 Pulse Ox 97 12/28/18 11:07 - Orders/Labs/Meds Meds: Medications Discontinued Medications Generic Name Dose Route Start Last Admin Trade Name Freq PRN Reason Stop Dose Admin Acetaminophen 975 mg 12/28/18 13:33 12/28/18 13:41 Tylenol PO 12/28/18 13:34 Not Given ONETIME ONE Acetaminophen 975 mg 12/28/18 13:41 12/28/18 13:42 Tylenol PO 12/28/18 13:42 975 mg NOW ONE Administration Acetaminophen Confirm 12/28/18 13:40 Tylenol Administered 12/28/18 13:41 Dose 975 mg .ROUTE .STK-MED ONE - Re-Assessments/Exams Free Text/Narrative Re-Assessment/Exam: 12/28/18 13:49 Thought about checking a C-spine x-rays however she's very difficult to get position because of her body habitus. Offered CT this is declined she just wants something for the discomfort and will go home we'll start her on Norflex and Tylenol Departure - Departure Time of Disposition: 13:49 Disposition: Home, Self-Care 01 Clinical Impression: Torticollis, acute - Discharge Information Prescriptions: tiZANidine HCl [Tizanidine HCl] 2 mg PO Q8H #18 capsule Referrals: Sonam Schneider PA-C [Primary Care Provider] - Forms: ED Department Discharge Additional Instructions: Return to the emergency room with any questions problems worsening symptoms. You have been started on Zanaflex, this is a muscle relaxant take it 3 times a day. You could experience lightheadedness dizziness or lower blood pressure if this happens return to the emergency room. There is a potential interaction with one your blood pressure medications. Follow-up with your regular provider Tuesday of next week if needed.
[2018-12-28] MEDS ORDERED: Acetaminophen 325 MG/10.15 ML ML PO ONE (13:33)
[2018-12-28] MEDS ORDERED: Acetaminophen 325 MG Tab ONE (13:40)
[2018-12-28] MEDS ORDERED: Acetaminophen 325 MG Tab PO ONE (13:41)
[2018-12-28 14:10] VITALS: BP 148/107
[2018-12-29] MEDS ORDERED: Acetaminophen 325 MG Tab PO SCH (09:00)
== END 2018-12-28 14:15 | disposition home or self-care (01) ==
LOC: JD.ED 10:43
DX: M43.6 Torticollis (principal); J45.909 Unspecified asthma, uncomplicated; I10 Essential (primary) hypertension; E11.42 Type 2 diabetes mellitus with diabetic polyneuropathy; F41.0 Panic disorder [episodic paroxysmal anxiety]; K21.9 Gastro-esophageal reflux disease without esophagitis; E78.00 Pure hypercholesterolemia, unspecified; G43.909 Migraine, unspecified, not intractable, without status migrainosus; Z88.6 Allergy status to analgesic agent; Z88.1 Allergy status to other antibiotic agents; Z91.030 Bee allergy status; Z91.041 Radiographic dye allergy status; Z88.8 Allergy status to other drugs, medicaments and biological substances; Z91.040 Latex allergy status; Z88.0 Allergy status to penicillin; Z91.048 Other nonmedicinal substance allergy status; Z88.2 Allergy status to sulfonamides; Z91.018 Allergy to other foods; Z79.899 Other long term (current) drug therapy; Z79.4 Long term (current) use of insulin
CPT/HCPCS: 99283; A9270

== ENCOUNTER 2018-12-30 12:33 | Emergency (ER) | payer MEDICAID ==
[2018-12-30 12:49] VITALS: BP 151/80; PULSE 96
[2018-12-30] MEDS ORDERED: Orphenadrine 100 MG Tab.ER PO STA (14:00)
[2018-12-30] MEDS ORDERED: Acetaminophen 325 MG Tab PO ONE (14:00)
--- NOTE | 2018-12-30 14:01 | EDM.PDOC ---
ED HPI GENERAL MEDICAL PROBLEM - General Chief Complaint: Neck Problem Stated Complaint: NECK PAIN Time Seen by Provider: 12/30/18 13:41 Source of Information: Reports: Patient History Limitations: Reports: No Limitations - History of Present Illness INITIAL COMMENTS - FREE TEXT/NARRATIVE: 53-year-old female presents for evaluation and treatment of neck pain. Patient was seen in the ER just a few days ago for neck pain. She was offered imaging but declined. She has been taking muscle relaxers and Voltaren cream without any relief. No known trigger or trauma. She is reporting pain to her neck primarily on the left side as well as her forehead, face and ear on the left side. She states that she is unable to move her neck. Reports that it hurts to swallow and she can hardly open her mouth due to the pain. She states the day before all this started she was coughing. She reports that her neck has been popping, cracking and snapping. Reports she has chronic numbness and tingling down her bilateral arms, no changes. No weakness to the bilateral arms. Primary care provider is Sonam Schneider. Neck Pain Score (Numeric/FACES): 9 - Related Data Allergies Allergy/AdvReac Type Severity Reaction Status Date / Time Iodinated Contrast Media Allergy Severe Airway Verified 12/30/18 14:22 [Iodinated Contrast Media - Tightness IV Dye] amoxicillin [From Augmentin] Allergy Other Verified 12/30/18 14:22 amoxicillin trihydrate Allergy Airway Verified 12/30/18 14:22 [From Augmentin] Tightness aspirin Allergy Airway Verified 12/30/18 14:22 Tightness bee venom protein (honey bee) Allergy Cannot Verified 12/30/18 14:22 Remember cefuroxime Allergy Other Verified 12/30/18 14:22 cefuroxime axetil Allergy Airway Verified 12/30/18 14:22 [From Ceftin] Tightness cephalexin Allergy Other Verified 12/30/18 14:22 cephalexin monohydrate Allergy Airway Verified 12/30/18 14:22 [From Keflex] Tightness ciprofloxacin [From Cipro] Allergy Airway Verified 12/30/18 14:22 Tightness ciprofloxacin HCl Allergy Airway Verified 12/30/18 14:22 [From Cipro] Tightness clavulanic acid Allergy Other Verified 12/30/18 14:22 [From Augmentin] doxycycline Allergy Airway Verified 12/30/18 14:22 Tightness honey Allergy Hives Verified 12/30/18 14:22 hydrogen peroxide Allergy Other Verified 12/30/18 14:22 latex Allergy Airway Verified 12/30/18 14:22 Tightness methylprednisolone Allergy Swollen Verified 12/30/18 14:22 [From Solu-Medrol] Eyes metronidazole [From Flagyl] Allergy Airway Verified 12/30/18 14:22 Tightness nitrofurantoin Allergy Airway Verified 12/30/18 14:22 [From Macrobid] Tightness nitrofurantoin Allergy Airway Verified 12/30/18 14:22 macrocrystalline Tightness [From Macrobid] Penicillins Allergy Airway Verified 12/30/18 14:22 Tightness perfume Allergy Cannot Verified 12/30/18 14:22 Remember potassium clavulanate Allergy Airway Verified 12/30/18 14:22 [From Augmentin] Tightness prednisone Allergy Cannot Verified 12/30/18 14:22 Remember procaine Allergy Other Verified 12/30/18 14:22 soap Allergy Cannot Verified 12/30/18 14:22 Remember Amskzuf-Jeu-Kcn Reductase Allergy Cannot Verified 12/30/18 14:22 Inhibitor Remember strawberry [[place]] Allergy Airway Verified 12/30/18 14:22 Tightness Sulfa (Sulfonamide Allergy Other Verified 12/30/18 14:22 Antibiotics) sulfamethoxazole Allergy Airway Verified 12/30/18 14:22 [From Bactrim] Tightness tetracycline [Tetracycline] Allergy Airway Verified 12/30/18 14:22 Tightness Tetracyclines Allergy Other Verified 12/30/18 14:22 trimethoprim [From Bactrim] Allergy Airway Verified 12/30/18 14:22 Tightness tropicamide Allergy Other Verified 12/30/18 14:22 antiperspirants Allergy Other Uncoded 12/30/18 12:41 deodorants Allergy Cannot Uncoded 12/30/18 12:41 Remember diagnostic x-ray materials Allergy Other Uncoded 12/30/18 12:41 fragances Allergy Other Uncoded 12/30/18 12:41 hmg-coa-r inhibitors Allergy Other Uncoded 12/30/18 12:41 metals Allergy Cannot Uncoded 12/30/18 12:41 Remember peroxide Allergy Blisters Uncoded 12/30/18 12:41 pickled meat Allergy Other Uncoded 12/30/18 12:41 yung canina extract Allergy Other Uncoded 12/30/18 12:41 sausage Allergy Cannot Uncoded 12/30/18 12:41 Remember shampoo Allergy Cannot Uncoded 12/30/18 12:41 Remember shampoos Allergy Other Uncoded 12/30/18 12:41 steroids Allergy Other Uncoded 12/30/18 12:41 Home Meds: Home Meds Albuterol Sulfate [Proair Hfa] 2 puff INH Q4H PRN 01/07/17 [History] DULoxetine [Cymbalta] 30 mg PO DAILY 01/07/17 [History] EPINEPHrine [Epipen] 1 dose IM ASDIRECTED PRN 01/07/17 [History] Furosemide [Lasix] 20 mg PO DAILY PRN 01/07/17 [History] Metoprolol Tartrate [Lopressor] 100 mg PO BID 01/07/17 [History] atorvaSTATin [Lipitor] 40 mg PO DAILY 01/07/17 [History] diphenhydrAMINE HCl [Benadryl] 50 mg PO BEDTIME 01/07/17 [History] sitaGLIPtin Phos/Metformin HCl [Janumet 50-1,000 MG] 1 tab PO BID 01/07/17 [ History] Pantoprazole Sodium [Protonix] 40 mg PO DAILY 03/08/17 [History] Albuterol [Proventil Neb Soln] 1 dose NEB QID 08/02/17 [History] Montelukast [Singulair] 10 mg PO DAILY 08/03/17 [History] Pregabalin [Lyrica] 300 mg PO DAILY 02/01/18 [History] Tiotropium [place] [Spiriva Respimat] 1 puff INH BID 02/01/18 [History] Cetirizine [ZyrTEC] 10 mg PO DAILY 10/23/18 [History] Insulin Glarg,Human.Rec.Analog [Lantus Solostar] 100 units SUBCUT BEDTIME [History] Azelastine HCl [Azelastine] 1 drop OP BID 12/28/18 [History] Celecoxib 200 mg PO DAILY 12/28/18 [History] Diclofenac Sodium [Voltaren 1%] 1 applic TOP BID 12/28/18 [History] Insulin Aspart [NovoLOG] 25 unit SQ WITHMEALSANDBED 12/28/18 [History] Ipratropium [Atrovent] 3 ml INH QID 12/28/18 [History] Mupirocin Oint [Bactroban Oint] 22 gm TP TID 12/28/18 [History] Olopatadine HCl [Patanase] 1 spray NS BID 12/28/18 [History] Pramipexole [Mirapex] 0.5 mg PO BEDTIME 12/28/18 [History] tiZANidine HCl [Tizanidine HCl] 2 mg PO Q8H #18 capsule 12/28/18 [Rx] traZODone HCl [Trazodone HCl] 100 mg PO BEDTIME 12/28/18 [History] Orphenadrine [Norflex] 100 mg PO BID #20 tab 12/30/18 [Rx] traMADol [Ultram] 50 mg PO Q6H PRN #20 tab 12/30/18 [Rx] Past Medical History HEENT History: Reports: Impaired Vision, Other (See Below) Other HEENT History: patient has upper denture and glasses Cardiovascular History: Reports: High Cholesterol, Hypertension Other Cardiovascular History: chest pain, peripheral artery disease Respiratory History: Reports: Asthma, Sleep Apnea Other Respiratory History: low o2 level when sleeping; pt wears c pap at noc Gastrointestinal History: Reports: Diverticulosis, GERD Other Gastrointestinal History: gastric ulcers, rectal bleeding, abdominal pain , fatty liver infiltrate Genitourinary History: Reports: Other (See Below), Renal Calculus Other Genitourinary History: perineal pain 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: Musculoskeletal History: Reports: Back Pain, Chronic Other Musculoskeletal History: peripheral neuropathy Neurological History: Reports: Migraines Psychiatric History: Reports: Anxiety, Panic Attack Endocrine/Metabolic History: Reports: Diabetes, Type II Hematologic History: Reports: None Immunologic History: Reports: None Oncologic (Cancer) History: Reports: Cervix Dermatologic History: Reports: None - Infectious Disease History Infectious Disease History: Reports: None - Past Surgical History Head Surgeries/Procedures: Reports: None HEENT Surgical History: Reports: None Musculoskeletal Surgical History: Reports: Carpal Tunnel Oncologic Surgical History: Reports: None Dermatological Surgical History: Reports: None Social & Family History - Tobacco Use Smoking Status *Q: Former Smoker Used Tobacco, but Quit: Yes Month/Year Tobacco Last Used: april - Caffeine Use Caffeine Use: Reports: Coffee, Tea ED ROS GENERAL - Review of Systems Review Of Systems: See Below (left) HEENT: Reports: Ear Pain (left), Throat Pain, Other (reports trismus) Respiratory: Denies: Cough (recently, now resolved) Musculoskeletal: Reports: Neck Pain (left), Muscle Stiffness (left) Neurological: Reports: Headache, Numbness (chronc, no change), Tingling (chronic , no changes). Denies: Weakness ED EXAM, UPPER BACK/NECK PAIN - Physical Exam Exam: See Below Exam Limited By: No Limitations General Appearance: Alert, WD/WN, Mild Distress, Obese Eye Exam: Bilateral Eye: Normal Inspection, PERRL Ears Exam: Normal External Exam, Normal Canal, Hearing Grossly Normal, Normal TMs Nose Exam: Normal Inspection Throat/Mouth Exam: Normal Inspection, Normal Lips, Normal Teeth, Normal Gums, Normal Oropharynx, Normal Voice, No Airway Compromise. No: Muffled Voice, Peritonsillar Mass, Uvular Deviation Head Exam: Atraumatic, Normocephalic Neck Exam: Non-Tender, Normal Alignment, Normal Inspection (no obvious swelling or abnormaliites appreciated), Limited Range of Motion (unable to preform), Tender Lateral (left ) Cardiovascular/Respiratory: Regular Rate, Rhythm, No M/R/G Psychiatric: Normal Affect, Normal Mood Skin Exam: Normal Color, Warm/Dry Course - Vital Signs Last Recorded V/S: Last Vital Signs Temp 98.5 F 12/30/18 12:42 Pulse 96 12/30/18 12:42 Resp 18 12/30/18 12:42 BP 151/80 H 12/30/18 12:42 Pulse Ox 99 12/30/18 12:42 - Orders/Labs/Meds Labs: Laboratory Tests 12/30/18 12/30/18 Range/Units 14:07 14:07 WBC 8.46 (3.98-10.04) K/mm3 RBC 4.96 (3.98-5.22) M/mm3 Hgb 14.6 (11.2-15.7) gm/L Hct 44.4 (34.1-44.9) % MCV 89.5 (79.4-94.8) fl MCH 29.4 (25.6-32.2) pg MCHC 32.9 (32.2-35.5) g/dl RDW Std Deviation 49.3 H (36.4-46.3) fL Plt Count 178 L (182-369) K/mm3 MPV 10.9 (9.4-12.3) fl Neut % (Auto) 56.0 (34.0-71.1) % Lymph % (Auto) 38.2 (19.3-51.7) % [place] % (Auto) 5.3 (4.7-12.5) % Eos % (Auto) 0 L (0.7-5.8) Baso % (Auto) 0.1 (0.1-1.2) % Neut # (Auto) 4.74 (1.56-6.13) K/mm3 Lymph # (Auto) 3.23 (1.18-3.74) K/mm3 [place] # (Auto) 0.45 H (0.24-0.36) K/mm3 Eos # (Auto) 0.00 L (0.04-0.36) K/mm3 Baso # (Auto) 0.01 (0.01-0.08) K/mm3 Sodium 139 (136-145) mEq/L Potassium 3.8 (3.5-5.1) mEq/L Chloride 104 (98-107) mEq/L Carbon Dioxide 27 (21-32) mEq/L Anion Gap 11.8 (5-15) BUN 12 (7-18) mg/dL Creatinine 0.7 (0.55-1.02) mg/dL Est Cr Clr Drug Dosing 81.18 mL/min Estimated GFR (MDRD) > 60 (>60) mL/min BUN/Creatinine Ratio 17.1 (14-18) Glucose 234 H (74-106) mg/dL Calcium 8.8 (8.5-10.1) mg/dL Total Bilirubin 0.2 (0.2-1.0) mg/dL AST 54 H (15-37) U/L ALT 81 H (14-59) U/L Alkaline Phosphatase 214 H (46-116) U/L C-Reactive Protein 0.7 (<1.0) mg/dL Total Protein 7.9 (6.4-8.2) g/dl Albumin 3.7 (3.4-5.0) g/dl Globulin 4.2 gm/dL Albumin/Globulin Ratio 0.9 L (1-2) Meds: Medications Discontinued Medications Generic Name Dose Route Start Last Admin Trade Name Mitchq PRN Reason Stop Dose Admin Acetaminophen 975 mg 12/30/18 14:00 12/30/18 14:22 Tylenol PO 12/30/18 14:01 975 mg NOW ONE Administration Orphenadrine Citrate 100 mg 12/30/18 14:00 12/30/18 14:22 Norflex PO 12/30/18 14:01 100 mg NOW STA Administration - Radiology Interpretation Free Text/Narrative:: CT of the head without contrast impression per vrad: no acute intracranial abnormality CT soft tissue without contrast impression per vrad: no acute findings - Re-Assessments/Exams Free Text/Narrative Re-Assessment/Exam: 12/30/18 16:45 i reviewed the labs and imaging with the patient. She reports some improvement. States she is able to open her mouth now and is moving her head slightly. Will discharge her home at this time. Recommend follow-up in the clinic. Discharge instructions as documented. Departure - Departure Time of Disposition: 16:46 Disposition: Home, Self-Care 01 Condition: Fair Clinical Impression: Torticollis - Discharge Information *PRESCRIPTION DRUG MONITORING PROGRAM REVIEWED*: Yes *COPY OF PRESCRIPTION DRUG MONITORING REPORT IN PATIENT KATHARINE: No Prescriptions: Orphenadrine [Norflex] 100 mg PO BID #20 tab traMADol [Ultram] 50 mg PO Q6H PRN #20 tab PRN Reason: Pain Instructions: Acute Torticollis, Adult Referrals: Sonam Schneider PA-C [Primary Care Provider] - Forms: ED Department Discharge Additional Instructions: stop the tizadine. Start norflex 1 tab PO bid prn muscle spasms. this medication may make you drowsy, do not drive until you know how this medication will affect you. tramadol 1 tab PO every 6 hours as needed for pain. this medication may be habit forming, take as few as needed to control you pain. do not drive or operate machinery within 10 hours of taking tramadol . additionally take tylenol as needed for pain relief. follow-up with PCP tuesday. use ice or heat the neck for additional pain relief. please return to the ER should your symptoms change or worsen.
--- NOTE | 2019-01-01 09:22 | CT ---
CT neck Technique: Multiple axial sections were obtained of the approximate level of the external auditory canals inferiorly to the lung apices. Intravenous contrast was not utilized. Comparison: No prior neck imaging. Findings: Parotid and submandibular salivary glands appear within normal limits. No adenopathy is seen within the neck. No other neck mass is identified. Calcifications are seen within the parapharyngeal soft tissues on both sides believed to be dystrophic. No discrete soft tissue mass is seen within the parapharyngeal soft tissues. Epiglottis is normal in size. Prevertebral soft tissues are normal. Bone window settings were reviewed which show ligamentum nuchal calcification within the posterior neck. Mild degenerative change is noted within the cervical spine. Impression: 1. Findings believed to be incidental as noted above. Nothing acute is appreciated on noncontrast CT study of the neck. Diagnostic code #2 I agree with preliminary report from [facility], finalized on 12/30/18, 4:44 PM Central Time
--- NOTE | 2019-01-01 09:22 | CT ---
Head CT Technique: Multiple axial sections through the brain were obtained. Intravenous contrast was not utilized. Comparison: No prior intracranial imaging. Findings: Ventricles along with basal cisterns and sulci over the convexities are within normal limits for the patient's age. No abnormal parenchymal densities are seen. No evidence of intracranial hemorrhage. No midline shift or mass effect is seen. Mild atherosclerotic calcification is seen within the vertebral vessels and carotid siphon. Bone window settings were reviewed which show no acute calvarial abnormality. Small retention cyst is partially visualized within the right maxillary sinus measuring 7 mm. No acute paranasal sinus findings are seen. Visualized mastoid sinuses are clear. Impression: 1. Findings as noted above. No acute intracranial abnormality is noted. Diagnostic code #2 I agree with preliminary report from [facility], finalized on 12/30/18, 4:38 PM Central Time
== END 2018-12-30 17:08 | disposition home or self-care (01) ==
LOC: JD.ED 12:33
DX: M43.6 Torticollis (principal); J45.909 Unspecified asthma, uncomplicated; K21.9 Gastro-esophageal reflux disease without esophagitis; I10 Essential (primary) hypertension; E78.00 Pure hypercholesterolemia, unspecified; F41.9 Anxiety disorder, unspecified; E11.9 Type 2 diabetes mellitus without complications; Z88.1 Allergy status to other antibiotic agents; Z88.6 Allergy status to analgesic agent; Z91.030 Bee allergy status; Z91.041 Radiographic dye allergy status; Z91.040 Latex allergy status; Z88.0 Allergy status to penicillin; Z88.2 Allergy status to sulfonamides; Z91.018 Allergy to other foods; Z91.048 Other nonmedicinal substance allergy status; Z88.8 Allergy status to other drugs, medicaments and biological substances; Z79.899 Other long term (current) drug therapy; Z79.4 Long term (current) use of insulin; Z87.891 Personal history of nicotine dependence
CPT/HCPCS: 36415; 70450; 70490; 80053; 85025; 86140; 87077; 87081; 87430; 99284; A9270; 99283

== ENCOUNTER 2019-02-16 07:18 | Day surgery (SDC) | payer MEDICAID ==
[~2019-02-16 07:18] MED LIST changes: +Lidocaine 1% 4 ML ONE; +Midazolam 1 MG/ML 2 ML SDV ONE; +Propofol 200 MG/20 ML SDV ONE; +fentaNYL 100 MCG/2 ML SDV ONE
[2019-02-16] MEDS ORDERED: Sodium Chloride 0.9% 1,000 ML IV SCH (07:45)
[2019-02-16] MEDS ORDERED: Lidocaine 1% 30 ML SDV ONE ×2 (07:52→09:08)
[2019-02-16] MEDS ORDERED: Bupivacaine 0.5% 30 ML SDV ONE ×2 (07:52→09:08)
[2019-02-16] MEDS ORDERED: Vancomycin 2 GM in Sodium Chloride 0.9% 500 ML IV ONE (08:15)
--- NOTE | 2019-02-16 08:31 | PCM.PREANE ---
Preanesthetic Assessment - Anesthesia/Transfusion/Family Hx Anesthesia History: Prior Anesthesia Without Reaction Family History of Anesthesia Reaction: No Transfusion History: No Prior Transfusion(s) Intubation History: Unknown - Review of Systems General: No Symptoms Pulmonary: Shortness of Breath, Wheezing, Cough Cardiovascular: No Symptoms, Palpitations (pt states gets palpitations "every now and then", states did see cardiology pre op) Gastrointestinal: No Symptoms Neurological: No Symptoms Other: Reports: Easy Bleeding - Physical Assessment NPO Status Date: 02/15/19 NPO Status Time: 22:00 Vital Signs: Last Vital Signs Temp 36.3 C 02/16/19 07:30 Pulse 88 02/16/19 07:30 Resp 20 02/16/19 07:30 BP 135/81 02/16/19 07:30 Pulse Ox 96 02/16/19 08:04 Height: 1.63 m Weight: 127.913 kg ASA Class: 3 Mental Status: Alert & Oriented x3 Airway Class: Mallampati = 1 Dentition: Reports: Dentures (upper) Thyro-Mental Finger Breadths: 3 Mouth Opening Finger Breadths: 3 ROM/Head Extension: Full Lungs: Clear to Auscultation, Normal Respiratory Effort Cardiovascular: Regular Rate, Regular Rhythm - Lab Values: Laboratory Last Values POC Glucose 183 mg/dL (70-105) H 02/16/19 07:53 - Allergies Allergies/Adverse Reactions: Allergies Allergy/AdvReac Type Severity Reaction Status Date / Time Iodinated Contrast Media Allergy Severe Airway Verified 02/15/19 14:58 [Iodinated Contrast Media - Tightness IV Dye] amoxicillin [From Augmentin] Allergy Other Verified 02/15/19 14:58 amoxicillin trihydrate Allergy Airway Verified 02/15/19 14:58 [From Augmentin] Tightness aspirin Allergy Airway Verified 02/15/19 14:58 Tightness bee venom protein (honey bee) Allergy Cannot Verified 02/15/19 14:58 Remember cefuroxime Allergy Other Verified 02/15/19 14:58 cefuroxime axetil Allergy Airway Verified 02/15/19 14:58 [From Ceftin] Tightness cephalexin Allergy Other Verified 02/15/19 14:58 cephalexin monohydrate Allergy Airway Verified 02/15/19 14:58 [From Keflex] Tightness chlorhexidine Allergy Blisters Verified 02/15/19 14:58 ciprofloxacin [From Cipro] Allergy Airway Verified 02/15/19 14:58 Tightness ciprofloxacin HCl Allergy Airway Verified 02/15/19 14:58 [From Cipro] Tightness clavulanic acid Allergy Other Verified 02/15/19 14:58 [From Augmentin] doxycycline Allergy Airway Verified 02/15/19 14:58 Tightness honey Allergy Hives Verified 02/15/19 14:58 hydrogen peroxide Allergy Other Verified 02/15/19 14:58 latex Allergy Airway Verified 02/15/19 14:58 Tightness methylprednisolone Allergy Swollen Verified 02/15/19 14:58 [From Solu-Medrol] Eyes metronidazole [From Flagyl] Allergy Airway Verified 02/15/19 14:58 Tightness nitrofurantoin Allergy Airway Verified 02/15/19 14:58 [From Macrobid] Tightness nitrofurantoin Allergy Airway Verified 02/15/19 14:58 macrocrystalline Tightness [From Macrobid] Penicillins Allergy Airway Verified 02/15/19 14:58 Tightness perfume Allergy Cannot Verified 02/15/19 14:58 Remember potassium clavulanate Allergy Airway Verified 02/15/19 14:58 [From Augmentin] Tightness prednisone Allergy Cannot Verified 02/15/19 14:58 Remember procaine Allergy Other Verified 02/15/19 14:58 soap Allergy Cannot Verified 02/15/19 14:58 Remember Ozaiubu-Rpm-Vyf Reductase Allergy Cannot Verified 02/15/19 14:58 Inhibitor Remember strawberry [[place]] Allergy Airway Verified 02/15/19 14:58 Tightness Sulfa (Sulfonamide Allergy Other Verified 02/15/19 14:58 Antibiotics) sulfamethoxazole Allergy Airway Verified 02/15/19 14:58 [From Bactrim] Tightness tetracycline [Tetracycline] Allergy Airway Verified 02/15/19 14:58 Tightness Tetracyclines Allergy Other Verified 02/15/19 14:58 trimethoprim [From Bactrim] Allergy Airway Verified 02/15/19 14:58 Tightness tropicamide Allergy Other Verified 02/15/19 14:58 antiperspirants Allergy Other Uncoded 02/15/19 14:58 deodorants Allergy Cannot Uncoded 02/15/19 14:58 Remember diagnostic x-ray materials Allergy Other Uncoded 02/15/19 14:58 fragances Allergy Other Uncoded 02/15/19 14:58 hmg-coa-r inhibitors Allergy Other Uncoded 02/15/19 14:58 metals Allergy Cannot Uncoded 02/15/19 14:58 Remember peroxide Allergy Blisters Uncoded 02/15/19 14:58 pickled meat Allergy Other Uncoded 02/15/19 14:58 yung canina extract Allergy Other Uncoded 02/15/19 14:58 sausage Allergy Cannot Uncoded 02/15/19 14:58 Remember shampoo Allergy Cannot Uncoded 02/15/19 14:58 Remember shampoos Allergy Other Uncoded 02/15/19 14:58 steroids Allergy Other Uncoded 02/15/19 14:58 - Anesthesia Plan Beta Elpidio: Metoprolol Med Last Dose Date: 02/16/19 Med Last Dose Time: 05:30 - Acknowledgements Anesthesia Type Planned: MAC Pt an Appropriate Candidate for the Planned Anesthesia: Yes Alternatives and Risks of Anesthesia Discussed w Pt/Guardian: Yes Pt/Guardian Understands and Agrees with Anesthesia Plan: Yes PreAnesthesia Questionnaire HEENT History: Reports: Allergic Rhinitis, Impaired Vision, Other (See Below) Other HEENT History: patient has upper denture and glasses Cardiovascular History: Reports: High Cholesterol, Hypertension, PVD Other Cardiovascular History: chest pain, peripheral artery disease Respiratory History: Reports: Asthma, Sleep Apnea (use CPAP), SOB, Other (See Below) (neb treatment pre-op) Other Respiratory History: low o2 level when sleeping, shortness of breath Gastrointestinal History: Reports: Diverticulosis, GERD, Hiatal Hernia, Other ( See Below) Other Gastrointestinal History: gastric ulcers, rectal bleeding, abdominal pain , fatty liver infiltrate Genitourinary History: Reports: Renal Calculus, Other (See Below) Other Genitourinary History: perineal pain, kidney disease, exploratory kidney surgery x 7 for kidney stones [employer] History: Reports: Musculoskeletal History: Reports: Arthritis, Back Pain, Chronic, Fibromyalgia Other Musculoskeletal History: peripheral neuropathy Neurological History: Reports: Migraines, Neuropathy, Diabetic, Seizure (pt states "had" epilepsy, states hasn't had a seizure for over a year) Psychiatric History: Reports: Anxiety, Panic Attack Endocrine/Metabolic History: Reports: Diabetes, Type II (BS 183 @ 0753), Obesity /BMI 30+ Hematologic History: Reports: None Immunologic History: Reports: None Oncologic (Cancer) History: Reports: Cervix Dermatologic History: Reports: None Other Dermatologic History: ingrown toenail, ulcer - Infectious Disease History Infectious Disease History: Reports: None - Past Surgical History Head Surgeries/Procedures: Reports: None HEENT Surgical History: Reports: None Cardiovascular Surgical History: Reports: None Respiratory Surgical History: Reports: None GI Surgical History: Reports: Colonoscopy, EGD Female Surgical History: Reports: Hysterectomy, Lithotripsy/ESWL, Tubal Ligation Endocrine Surgical History: Reports: None Neurological Surgical History: Reports: None Musculoskeletal Surgical History: Reports: Carpal Tunnel, Other (See Below) Other Musculoskeletal Surgeries/Procedures:: bilateral foot surgeries, bilateral carpal tunnel release, left ganglion cyst excsion Oncologic Surgical History: Reports: None Dermatological Surgical History: Reports: None - SUBSTANCE USE Smoking Status *Q: Former Smoker Recreational Drug Use History: No - HOME MEDS Home Medications: Home Meds Albuterol Sulfate [Proair Hfa] 2 puff INH Q4H PRN 01/07/17 [History] DULoxetine [Cymbalta] 30 mg PO DAILY 01/07/17 [History] EPINEPHrine [Epipen] 1 dose IM ASDIRECTED PRN 01/07/17 [History] Furosemide [Lasix] 20 mg PO DAILY PRN 01/07/17 [History] Metoprolol Tartrate [Lopressor] 100 mg PO BID 01/07/17 [History] atorvaSTATin [Lipitor] 40 mg PO DAILY 01/07/17 [History] diphenhydrAMINE HCl [Benadryl] 50 mg PO BEDTIME PRN 01/07/17 [History] sitaGLIPtin Phos/Metformin HCl [Janumet 50-1,000 MG] 1 tab PO BID 01/07/17 [ History] Pantoprazole Sodium [Protonix] 40 mg PO DAILY 03/08/17 [History] Albuterol [Proventil Neb Soln] 1 dose NEB QID 08/02/17 [History] Montelukast [Singulair] 10 mg PO DAILY 08/03/17 [History] Pregabalin [Lyrica] 300 mg PO BID 02/01/18 [History] Tiotropium [place] [Spiriva Respimat] 1 puff INH BID 02/01/18 [History] Cetirizine [ZyrTEC] 10 mg PO DAILY 10/23/18 [History] Insulin Glarg,Human.Rec.Analog [Lantus Solostar] 124 units SUBCUT BEDTIME [History] Azelastine HCl [Azelastine] 1 drop OP BID 12/28/18 [History] Celecoxib 200 mg PO DAILY 12/28/18 [History] Insulin Aspart [NovoLOG] 34 unit SQ TID 12/28/18 [History] Mupirocin Oint [Bactroban Oint] 22 gm TP TID 12/28/18 [History] Olopatadine HCl [Patanase] 1 spray NS BID 12/28/18 [History] Pramipexole [Mirapex] 0.5 mg PO BEDTIME 12/28/18 [History] traZODone HCl [Trazodone HCl] 100 mg PO BEDTIME 12/28/18 [History] Albuterol/Ipratropium [DuoNeb 3.0-0.5 MG/3 ML] 1 dose NEB Q4H PRN 02/15/19 [ History] DULoxetine [Cymbalta] 60 mg PO DAILY 02/15/19 [History] Fish Oil/[place]-3 Fatty Acids [Fish Oil 1,000 MG] 2 gm PO DAILY 02/15/19 [History ] Inulin/Chromium Picolinate [Fiber Gummies] 2 tab PO DAILY 02/15/19 [History] Methylcellulose [Citrucel] 500 - 1,000 mg PO DAILY 02/15/19 [History] Olopatadine [Patanol 0.1% Ophth Soln] 1 drop EYEBOTH DAILY PRN 02/15/19 [History ] Ranitidine [Zantac] 150 mg PO DAILY 02/15/19 [History] - CURRENT (IN HOUSE) MEDS Current Meds: Current Medications Albuterol (Proventil Neb Soln) 2.5 mg NEB ONETIME BETTINA Stop: 02/16/19 18:00 Last Admin: 02/16/19 08:04 Dose: 2.5 mg Lactated Ringer's (Ringers, Lactated) 1,000 mls @ 125 mls/hr IV ASDIRECTED BETTINA Stop: 02/16/19 23:00 Vancomycin HCl 2 gm/ Sodium (Chloride) 500 mls @ 250 mls/hr IV ONETIME ONE Stop: 02/16/19 10:14 Lidocaine/Sodium Bicarbonate (Buffered Lidocaine 1% In Ns 8.4%) 0.25 ml IDERM ONETIME PRN PRN Reason: Prior to IV Start Stop: 02/16/19 18:00 Sodium Chloride (Saline Flush) 10 ml FLUSH ASDIRECTED PRN PRN Reason: Keep Vein Open Stop: 02/16/19 18:00 Discontinued Medications Bupivacaine HCl (Marcaine 0.5%) Confirm Administered Dose 30 ml .ROUTE .STK-MED ONE Stop: 02/16/19 07:53 Fentanyl (Sublimaze) Confirm Administered Dose 100 mcg .ROUTE .STK-MED ONE Stop: 02/16/19 06:46 Lidocaine HCl (Xylocaine-Mpf 1%) Confirm Administered Dose 4 mls @ as directed .ROUTE .STK-MED ONE Stop: 02/16/19 06:47 Lidocaine HCl (Xylocaine-Mpf 1%) Confirm Administered Dose 30 ml .ROUTE .STK- MED ONE Stop: 02/16/19 07:53 Midazolam HCl (Versed 1 Mg/Ml) Confirm Administered Dose 2 mg .ROUTE .STK-MED ONE Stop: 02/16/19 06:46 Propofol (Diprivan 20 Ml) Confirm Administered Dose 200 mg .ROUTE .STK-MED ONE Stop: 02/16/19 06:46
[2019-02-16] MEDS ORDERED: Propofol 200 MG/20 ML SDV ONE (09:55)
--- NOTE | 2019-02-16 10:41 | PCM48HPAN ---
Post Anesthesia Note - EVALUATION WITHIN 48HRS OF ANESTHETIC Vital Signs in Normal Range: Yes Patient Participated in Evaluation: Yes Respiratory Function Stable: Yes Airway Patent: Yes Cardiovascular Function Stable: Yes Hydration Status Stable: Yes Pain Control Satisfactory: Yes Nausea and Vomiting Control Satisfactory: Yes Mental Status Recovered: Yes Vital Signs: Last Vital Signs Temp 36.3 C 02/16/19 07:30 Pulse 88 02/16/19 07:30 Resp 20 02/16/19 07:30 BP 135/81 02/16/19 07:30 Pulse Ox 96 02/16/19 08:04
--- NOTE | 2019-02-16 10:43 | PCM.OPNOTE ---
- General Post-Op/Procedure Note Date of Surgery/Procedure: 02/16/19 Operative Procedure(s): 1.) Arthroplasty RIGHT 2nd toe with Hammerlock implant. 2.) Arthroplasty RIGHT 3rd toe with Hammerlock implant. 3.) Flexor Tenotomy & Capsulotomy, RIGHT 4th PIPJ. 4.) Partial Surgical Matricectomy @ Tibial ungual labial border, RIGHT 1st toe Pre Op Diagnosis: 1.) Hammertoe deformities, RIGHT 2nd, 3rd toes. 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 3.) Toenail spicule regrowth, RIGHT 1st toe @ tibial ungual labial border Post-Op Diagnosis: Same Anesthesia Technique: Local, MAC Primary Surgeon: Tripp Eagle II Anesthesia Provider: Preeti Mendenhall EBL in mLs: 5 Drain/Tube Comments:: none Complications: None Condition: Good Free Text/Narrative:: Patient left the OR for recovery with vital signs stable & vascular status intact, RIGHT foot
[2019-02-16] MEDS ORDERED: Acetaminophen/oxyCODONE 325-5 MG Tab PO PRN (11:08)
--- NOTE | 2019-02-16 12:18 | CR ---
Right foot: Three views of the right foot were obtained. Comparison: No prior foot exam. Fixation devices are seen between the PIP joints of the 2nd and 3rd digits. The distal end of the fixation device within the 3rd toe is slightly lateral to the bone. No additional abnormality is appreciated. Impression: 1. Fixation devices as noted above. Diagnostic code #2
[2019-02-16 15:17] VITALS: PULSE 87
[2019-02-16 15:18] VITALS: BP 105/65
--- NOTE | 2019-02-16 16:29 | OR ---
DATE OF OPERATION: 02/16/2019 SURGEON: Tripp Eagle II, DPM LOCATION: [facility]. ANESTHESIA: MAC with local block about the right foot. ANESTHESIA PROVIDER: Preeti Mendenhall CRNA. HEMOSTASIS: Right pneumatic ankle tourniquet at 250 mmHg pressure x35 minutes. PREOPERATIVE DIAGNOSIS: 1. Painful and symptomatic right 2nd and 3rd hammertoes. 2. 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 3. Painful and symptomatic toenail spicule regrowth, right 1st toe, tibial inguinolabial border. POSTOPERATIVE DIAGNOSIS: 1. Painful and symptomatic right 2nd and 3rd hammertoes. 2. 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 3. Painful and symptomatic toenail spicule regrowth, right 1st toe, tibial inguinolabial border. OPERATION PERFORMED: 1. Arthroplasty right 2nd toe with Hammerlock implant. 2. Arthroplasty right 3rd toe with Hammerlock implant. 3. Flexor tenotomy, right 4th toe. 4. Partial surgical matricectomy at tibial inguinolabial border, right 1st toe. DESCRIPTION OF PROCEDURE: Upon arrival, admission to the hospital, the patient was examined and cleared for surgery by the assigned anesthesia provider. IV access was obtained in the preoperative area after which the patient was given prophylactic antibiotics consisting of 1 g of vancomycin IV piggyback. The patient was then brought to the OR via gurney and left on the gurney in the supine position. The patient was given a combination of sedations and was adequately sedated before receiving 10 mL of 1:1 mixture of 1% lidocaine plain and 0.5% Marcaine plain from a local infiltrative block about the right 1st, 2nd, 3rd, and 4th toes. The right lower extremity was then wrapped with cotton Webril padding in preparation for nonsterile pneumatic ankle tourniquet which was then draped in a sterile drape. The right lower extremity was then prepped and draped in usual aseptic manner. Right lower extremity was then elevated and exsanguinated with the use of an Esmarch bandage before inflating the pneumatic ankle tourniquet to 250 mmHg pressure. The Esmarch bandage was removed and the right lower extremity was placed back to the level of the operating room table. Attention was then directed to the right dorsal 2nd PIPJ, where a linear incision was created centered over this joint. This was a controlled depth skin incision taken down to the level of subcutaneous structures with care taken to retract the vital neurovascular structures within the area as well as cauterize and ligate all superficial bleeders as deemed necessary. A transverse tenotomy capsulotomy was then performed at the PIPJ of the right 2nd toe to bring into exposure hypertrophic bone at the head of the proximal phalanx. A power sagittal saw was then utilized to resect this from dorsal to plantar and likewise this was done at the base of the intermediate phalanx. The wound was then copiously lavaged with sterile saline solution before a helicopter pilot hole was created into the resected surfaces of both the proximal and the middle phalanges. These helicopter pilot/guide holes were then broached and the wound was then copiously lavaged once again with sterile saline solution before a 22 mm 10-degree angled Hammerlock implant was selected and was placed across the PIPJ. The digit was then reconnected in this corrected and reanastomosed position. The wound was then closed with the use of 4-0 Vicryl at the level of tenocapsular structures and the skin was reapproximated with 4-0 nylon in the form of a running interlocking simple suture knots. The right 3rd toe was done the same way as the right 2nd toe with no additions, deletions, or variations excepting for a 20 mm 10-degree sagittal plane Hammerlock implant was selected for the right 3rd toe. Attention was then directed to the plantar PIPJ of the right 4th toe where a flexor tenotomy and capsulotomy was performed at the level of the plantar PIPJ. Attention was then directed to the distal medial inguinolabial border of the right 1st toe where an elliptical incision containing a toenail spicule was resected and as well as the associated subcutaneous matrix tissue. This elliptical incision was then copiously lavaged with sterile saline solution and was reapproximated with 4-0 nylon. An additional 10 mL of 0.5% Marcaine plain was injected about the operatory site of the right 1st, 2nd, 3rd, and 4th toes. Dressings were then consisted of Adaptic gauze as the patient has Betadine allergy. A 4 x 4 gauze, Kerlix, and an Ryan bandage. Upon completion of the surgery, the right pneumatic ankle tourniquet was deflated and it was noted the digits 1 through 5 of the right lower extremity became pink indicating normal vascular perfusion had returned. The patient appeared to tolerate the procedure and anesthesia well, and left the OR for recovery with vital signs being stable and vascular status intact digits 1 through 5 of the right lower extremity with no apparent complications. In recovery, the patient received written and oral postoperative instructions with postoperative pain medication. The patient will ambulate partial weightbearing with a postoperative shoe for her right foot. Estimated blood loss for this procedure was less than 5 mL and considered negligible. There were no apparent or obvious complications. ESTIMATED BLOOD LOSS: MMODAL /[id number]
== END 2019-02-16 12:25 | disposition home or self-care (01) ==
LOC: JD.SDS 07:18
PROVIDERS: ATTEND Podiatrist Foot & Ankle Surgery
DX: M20.41 Other hammer toe(s) (acquired), right foot (principal); M20.5X1 Other deformities of toe(s) (acquired), right foot; L60.8 Other nail disorders; L60.0 Ingrowing nail; I10 Essential (primary) hypertension; E11.51 Type 2 diabetes mellitus with diabetic peripheral angiopathy without gangrene; E11.40 Type 2 diabetes mellitus with diabetic neuropathy, unspecified; E66.01 Morbid (severe) obesity due to excess calories; E78.5 Hyperlipidemia, unspecified; K21.9 Gastro-esophageal reflux disease without esophagitis; F41.9 Anxiety disorder, unspecified; J44.9 Chronic obstructive pulmonary disease, unspecified; G47.33 Obstructive sleep apnea (adult) (pediatric); M19.90 Unspecified osteoarthritis, unspecified site; Z68.42 Body mass index [BMI] 45.0-49.9, adult; Z88.0 Allergy status to penicillin; Z88.6 Allergy status to analgesic agent; Z88.1 Allergy status to other antibiotic agents; Z88.3 Allergy status to other anti-infective agents; Z88.2 Allergy status to sulfonamides; Z91.018 Allergy to other foods; Z91.030 Bee allergy status; Z91.040 Latex allergy status; Z91.041 Radiographic dye allergy status; Z91.09 Other allergy status, other than to drugs and biological substances; Z87.891 Personal history of nicotine dependence; Z79.4 Long term (current) use of insulin; Z79.899 Other long term (current) drug therapy
CPT/HCPCS: 11750; 28232; 28285; 73620; 82962; 94640; A9270; J2001; J2250; J2704; J3010; J3370; J3490; J7040

== ENCOUNTER → 2020-02-01 | Day surgery (SDC) | payer MEDICAID ==
[~2020-02-01] MED LIST changes: +Albuterol 0.083% 2.5 MG/3 ML Neb Soln NEB ONE; -Albuterol 0.083% 2.5 MG/3 ML Neb Soln NEB SCH; +Bupivacaine 0.5% 30 ML SDV ONE; +Ketorolac 30 MG/ML SDV ONE; +Lidocaine 1% 50 ML MDV ONE; +Ondansetron 4 MG/2 ML SDV ONE; +Vancomycin 2 GM in Sodium Chloride 0.9% 500 ML IV ONE
--- NOTE | 2020-02-01 07:20 | PCM.PREANE ---
Preanesthetic Assessment - Anesthesia/Transfusion/Family Hx Anesthesia History: Prior Anesthesia Without Reaction Family History of Anesthesia Reaction: No Transfusion History: No Prior Transfusion(s) Intubation History: Unknown - Review of Systems General: No Symptoms Pulmonary: No Symptoms Cardiovascular: No Symptoms Gastrointestinal: No Symptoms Neurological: No Symptoms Other: Reports: None - Physical Assessment NPO Status Date: 01/31/20 NPO Status Time: 20:00 Vital Signs: Last Vital Signs Temp 36.1 C 02/01/20 07:07 Pulse 102 H 02/01/20 07:07 Resp 20 02/01/20 07:07 BP 112/85 02/01/20 07:07 Pulse Ox 96 02/01/20 07:07 Height: 1.63 m Weight: 129.727 kg ASA Class: 3 Mental Status: Alert & Oriented x3 Airway Class: Mallampati = 3 Dentition: Reports: Dentures (uppers) Thyro-Mental Finger Breadths: 2 Mouth Opening Finger Breadths: 3 ROM/Head Extension: Full Lungs: Clear to Auscultation (with coughing ), Normal Respiratory Effort, Decreased Breath Sounds Cardiovascular: Regular Rate, Regular Rhythm - Allergies Allergies/Adverse Reactions: Allergies Allergy/AdvReac Type Severity Reaction Status Date / Time Iodinated Contrast Media Allergy Severe Airway Verified 01/31/20 13:16 [Iodinated Contrast Media - Tightness IV Dye] amoxicillin [From Augmentin] Allergy Other Verified 01/31/20 13:16 amoxicillin trihydrate Allergy Airway Verified 01/31/20 13:16 [From Augmentin] Tightness aspirin Allergy Airway Verified 01/31/20 13:16 Tightness bee venom protein (honey bee) Allergy Cannot Verified 01/31/20 13:16 Remember cefuroxime Allergy Other Verified 01/31/20 13:16 cefuroxime axetil Allergy Airway Verified 01/31/20 13:16 [From Ceftin] Tightness cephalexin Allergy Other Verified 01/31/20 13:16 cephalexin monohydrate Allergy Airway Verified 01/31/20 13:16 [From Keflex] Tightness chlorhexidine Allergy Blisters Verified 01/31/20 13:16 ciprofloxacin [From Cipro] Allergy Airway Verified 01/31/20 13:16 Tightness ciprofloxacin HCl Allergy Airway Verified 01/31/20 13:16 [From Cipro] Tightness clavulanic acid Allergy Other Verified 01/31/20 13:16 [From Augmentin] doxycycline Allergy Airway Verified 01/31/20 13:16 Tightness honey Allergy Hives Verified 01/31/20 13:16 hydrogen peroxide Allergy Other Verified 01/31/20 13:16 latex Allergy Airway Verified 01/31/20 13:16 Tightness methylprednisolone Allergy Swollen Verified 01/31/20 13:16 [From Solu-Medrol] Eyes metronidazole [From Flagyl] Allergy Airway Verified 01/31/20 13:16 Tightness nitrofurantoin Allergy Airway Verified 01/31/20 13:16 [From Macrobid] Tightness nitrofurantoin Allergy Airway Verified 01/31/20 13:16 macrocrystalline Tightness [From Macrobid] Penicillins Allergy Airway Verified 01/31/20 13:16 Tightness perfume Allergy Cannot Verified 01/31/20 13:16 Remember potassium clavulanate Allergy Airway Verified 01/31/20 13:16 [From Augmentin] Tightness prednisone Allergy Cannot Verified 01/31/20 13:16 Remember procaine Allergy Other Verified 01/31/20 13:16 soap Allergy Cannot Verified 01/31/20 13:16 Remember Kqityqb-Mwd-Bib Reductase Allergy Cannot Verified 01/31/20 13:16 Inhibitor Remember strawberry [[place]] Allergy Airway Verified 01/31/20 13:16 Tightness Sulfa (Sulfonamide Allergy Other Verified 01/31/20 13:16 Antibiotics) sulfamethoxazole Allergy Airway Verified 01/31/20 13:16 [From Bactrim] Tightness tetracycline [Tetracycline] Allergy Airway Verified 01/31/20 13:16 Tightness Tetracyclines Allergy Other Verified 01/31/20 13:16 trimethoprim [From Bactrim] Allergy Airway Verified 01/31/20 13:16 Tightness tropicamide Allergy Other Verified 01/31/20 13:16 antiperspirants Allergy Other Uncoded 01/31/20 13:16 deodorants Allergy Cannot Uncoded 01/31/20 13:16 Remember diagnostic x-ray materials Allergy Other Uncoded 01/31/20 13:16 fragances Allergy Other Uncoded 01/31/20 13:16 hmg-coa-r inhibitors Allergy Other Uncoded 01/31/20 13:16 metals Allergy Cannot Uncoded 01/31/20 13:16 Remember peroxide Allergy Blisters Uncoded 01/31/20 13:16 pickled meat Allergy Other Uncoded 01/31/20 13:16 yung canina extract Allergy Other Uncoded 01/31/20 13:16 sausage Allergy Cannot Uncoded 01/31/20 13:16 Remember shampoo Allergy Cannot Uncoded 01/31/20 13:16 Remember shampoos Allergy Other Uncoded 01/31/20 13:16 steroids Allergy Other Uncoded 01/31/20 13:16 - Anesthesia Plan Beta Elpidio: Metoprolol Med Last Dose Date: 01/31/20 Med Last Dose Time: 19:00 - Acknowledgements Anesthesia Type Planned: MAC Pt an Appropriate Candidate for the Planned Anesthesia: Yes Alternatives and Risks of Anesthesia Discussed w Pt/Guardian: Yes Pt/Guardian Understands and Agrees with Anesthesia Plan: Yes PreAnesthesia Questionnaire HEENT History: Reports: Impaired Vision, Other (See Below) Other HEENT History: patient has upper denture and glasses Cardiovascular History: Reports: High Cholesterol, Hypertension, PVD Other Cardiovascular History: chest pain, peripheral artery disease Respiratory History: Reports: Asthma, Sleep Apnea, SOB, Other (See Below) Other Respiratory History: low o2 level when sleeping; pt wears c pap at noc Gastrointestinal History: Reports: Diverticulosis, GERD Other Gastrointestinal History: gastric ulcers, rectal bleeding, abdominal pain, fatty liver infiltrate Genitourinary History: Reports: Renal Calculus, Other (See Below) Other Genitourinary History: perineal pain [place] WIGS History: Reports: Musculoskeletal History: Reports: Back Pain, Chronic Other Musculoskeletal History: peripheral neuropathy Neurological History: Reports: Migraines Psychiatric History: Reports: Anxiety, Panic Attack Endocrine/Metabolic History: Reports: Diabetes, Type II Hematologic History: Reports: None Immunologic History: Reports: None Oncologic (Cancer) History: Reports: Cervix Dermatologic History: Other Dermatologic History: ingrown toenail, ulcer - Infectious Disease History Infectious Disease History: Reports: None - Past Surgical History Head Surgeries/Procedures: Reports: None HEENT Surgical History: Reports: None Cardiovascular Surgical History: Reports: None Respiratory Surgical History: Reports: None GI Surgical History: Reports: Colonoscopy, EGD Female Surgical History: Reports: Hysterectomy, Lithotripsy/ESWL, Tubal Ligation Endocrine Surgical History: Reports: None Neurological Surgical History: Reports: None Musculoskeletal Surgical History: Reports: Carpal Tunnel Other Musculoskeletal Surgeries/Procedures:: bilateral foot surgeries, bilateral carpal tunnel release, left ganglion cyst excsion Oncologic Surgical History: Reports: None Dermatological Surgical History: Reports: None - SUBSTANCE USE Smoking Status *Q: Former Smoker Recreational Drug Use History: No - HOME MEDS Home Medications: Home Meds DULoxetine [Cymbalta] 90 mg PO DAILY 01/07/17 [History] EPINEPHrine [Epipen] 1 dose IM ASDIRECTED PRN 01/07/17 [History] Metoprolol Tartrate [Lopressor] 100 mg PO BID 01/07/17 [History] atorvaSTATin [Lipitor] 40 mg PO DAILY 01/07/17 [History] diphenhydrAMINE HCL [Benadryl] 50 mg PO BEDTIME PRN 01/07/17 [History] Pregabalin [Lyrica] 300 mg PO BID 02/01/18 [History] Tiotropium [place] [Spiriva Respimat] 1 puff INH BID 02/01/18 [History] Cetirizine [ZyrTEC] 10 mg PO DAILY 10/23/18 [History] Celecoxib 200 mg PO DAILY 12/28/18 [History] Mupirocin Oint [Bactroban Oint] 1 dose TP BID 12/28/18 [History] Olopatadine HCl [Patanase] 1 spray NS BID 12/28/18 [History] Albuterol/Ipratropium [DuoNeb 3.0-0.5 MG/3 ML] 1 dose NEB Q4H PRN 02/15/19 [History] Methylcellulose [Citrucel] 500 - 1,000 mg PO DAILY 02/15/19 [History] Olopatadine [Patanol 0.1% Ophth Soln] 1 drop EYEBOTH DAILY PRN 02/15/19 [History] EPINEPHrine [Epipen] 1 dose IM ONETIME PRN 01/31/20 [History] Esomeprazole [NexIUM] 40 mg PO DAILY 01/31/20 [History] Exenatide Microspheres [Bydureon Pen] 2 mg SQ Q7D 01/31/20 [History] Famotidine 20 mg PO BID 01/31/20 [History] Furosemide 40 mg PO BID 01/31/20 [History] Ipratropium [Atrovent 0.03% Nasal [place]] 1 dose PAKO TID PRN 01/31/20 [History] metFORMIN HCl [Metformin HCl] 1,000 mg PO BID 01/31/20 [History] - CURRENT (IN HOUSE) MEDS Current Meds: Current Medications Lactated Ringer's (Ringers, Lactated) 1,000 mls @ 125 mls/hr IV ASDIRECTED BETTINA Stop: 02/01/20 23:00 Vancomycin HCl 2 gm/ Sodium (Chloride) 500 mls @ 250 mls/hr IV ONETIME ONE Stop: 02/01/20 09:29 Lidocaine/Sodium Bicarbonate (Buffered Lidocaine 1% In Ns 8.4%) 0.25 ml IDERM ONETIME PRN PRN Reason: Prior to IV Start Stop: 02/01/20 18:00 Sodium Chloride (Saline Flush) 10 ml FLUSH ASDIRECTED PRN PRN Reason: Keep Vein Open Stop: 02/01/20 18:00 Discontinued Medications Vancomycin HCl (Pharmacy To Dose - Vancomycin) 1 dose .XX ONETIME BETTINA
--- NOTE | 2020-02-01 09:42 | PCM48HPAN ---
Post Anesthesia Note - EVALUATION WITHIN 48HRS OF ANESTHETIC Vital Signs in Normal Range: Yes Patient Participated in Evaluation: Yes Respiratory Function Stable: Yes Airway Patent: Yes Cardiovascular Function Stable: Yes Hydration Status Stable: Yes Pain Control Satisfactory: Yes Nausea and Vomiting Control Satisfactory: Yes Mental Status Recovered: Yes Vital Signs: Last Vital Signs Temp 36.1 C 02/01/20 07:07 Pulse 102 H 02/01/20 07:07 Resp 20 02/01/20 07:07 BP 112/85 02/01/20 07:07 Pulse Ox 96 02/01/20 07:07
--- NOTE | 2020-02-01 09:43 | PCM.OPNOTE ---
- General Post-Op/Procedure Note Date of Surgery/Procedure: 02/01/20 Operative Procedure(s): Revision Arthroplasty, RIGHT 3rd toe Findings: lateral wall fracture caused by implant, proximal phalange. Pre Op Diagnosis: Retained Orthopedic Hardware, RIGHT 3rd toe. Implant diplacement, RIGHT 3rd toe. Post-Op Diagnosis: Same Anesthesia Technique: Local, MAC Primary Surgeon: Tripp Eagle II Anesthesia Provider: Preeti Mendenhall EBL in mLs: 5 Complications: None Condition: Good Free Text/Narrative:: patient left the OR for rececovery with vital signs stable & vascular status intact, digits, 1-5 Right foot.
[2020-02-01 09:47] VITALS: BP 91/47; PULSE 103
--- NOTE | 2020-02-01 12:30 | OR ---
DATE OF OPERATION: 02/01/2020 SURGEON: Tripp Eagle II, DPM LOCATION: [facility]. ANESTHESIA: MAC with local block about the right 3rd digit. ANESTHESIA PROVIDER: Preeti Mendenhall CRNA HEMOSTASIS: Right pneumatic ankle tourniquet at 250 mmHg pressure for 44 minutes. PREOPERATIVE DIAGNOSIS: 1. Painful and symptomatic retained orthopedic hardware, right 3rd toe. 2. Painful and symptomatic dislocation of implant, right 3rd toe. POSTOPERATIVE DIAGNOSIS: 1. Painful and symptomatic retained orthopedic hardware, right 3rd toe. 2. Painful and symptomatic dislocation of implant, right 3rd toe. OPERATION PERFORMED: Revision arthroplasty, right 3rd toe, with K-wire stabilization. DESCRIPTION OF PROCEDURE: Upon arrival and admission to the hospital, the patient was examined and cleared for surgery by the assigned anesthesia provider. IV access was obtained in the preoperative area after which the patient was given prophylactic antibiotics consisting of 1 g of vancomycin IV piggyback. The patient was then escorted and left on the gurney and remained as such in the supine position in the OR. The patient was given a combination of sedations and was adequately sedated before receiving 10 mL of a 1:1 mixture 1% lidocaine plain and 0.5% Marcaine plain in the form of a local infiltrative block proximal to the right 3rd toe at the MTPJ level. Anesthesia was tested and found to be adequate. Right lower extremity was wrapped with cotton Webril padding in preparation for nonsterile pneumatic ankle tourniquet which was then draped with a sterile drape. The right lower extremity was then prepped and draped in the usual aseptic manner. Right lower extremity was then elevated and exsanguinated with the use of an Esmarch bandage before inflating the right pneumatic ankle tourniquet to 250 mmHg pressure. The Esmarch bandage was removed, and the right lower extremity was placed back to the level of the operating room table. Attention was then directed to the right 3rd digit where a 3 cm linear incision was created overlying the DIPJ and brought proximally to the level of the MTPJ. This was a controlled depth skin incision taken down to the level of the subcutaneous structures with care taken to retract the vital neurovascular structures within the area as well as to cauterize or ligate all superficial bleeders as deemed necessary. Attention was then directed to the proximal interphalangeal joint where the implant appeared to be dislodged from the medullary canal due to a lateral wall fracture or displacement most likely occurring when she provided information about a fall down some stairs. There was a large amount of scar tissue within the area, and after the implant was extricated from the soft tissue and bone, it was removed from the right 3rd toe in toto. The wound was copiously lavaged with sterile saline solution. A small resection of the head of the proximal phalanx that remained was undertaken, and a 0.045 K-wire was loaded onto a wire light truck driver and driven across the PIPJ to come to reside at its most proximal extent into the MTPJ. The wound was once again copiously lavaged with sterile saline solution. Intraoperative fluoroscopy AP views were taken to demonstrate adequate placement of the K-wire. The K-wire was bent and cut to a shorter length, and then a protective Jergens ball was placed and secured to the end of the K-wire. Closure of the wound was undertaken utilizing 4-0 Vicryl while the skin will be reapproximated utilizing 4-0 nylon. The patient received an additional 10 mL of 0.5% Marcaine plain injected about the operatory sites and proximal to it of the right 3rd toe. Dressings will then consist of Adaptic gauze, 4x4 gauze, Vega, and an Ryan bandage. Upon completion of the surgery, the right pneumatic ankle tourniquet was deflated, and it was noted that digits 1 through 5 of the right lower extremity became pink, indicating normal vascular perfusion had returned. The patient appeared to tolerate the procedure and anesthesia well and left the OR with her vital signs being stable and vascular status intact digits 1 through 5 of the right lower extremity with no apparent complications. In Recovery, the patient received written and oral postop instructions with postoperative pain medication. The patient will ambulate partial weightbearing with a postoperative shoe as she has an immobilization boot already dispensed to her that she did not bring with her today. Estimated blood loss for the procedure was considered 5 mL, but negligible. There were no apparent or obvious complications. ESTIMATED BLOOD LOSS: MMODAL /[id number]
== END | disposition home or self-care (01) ==
LOC: JD.SDS 06:44
PROVIDERS: ATTEND Podiatrist Foot & Ankle Surgery
DX: T84.84XA Pain due to internal orthopedic prosthetic devices, implants and grafts, initial encounter (principal); I10 Essential (primary) hypertension; K21.9 Gastro-esophageal reflux disease without esophagitis; G47.33 Obstructive sleep apnea (adult) (pediatric); J45.909 Unspecified asthma, uncomplicated; E11.42 Type 2 diabetes mellitus with diabetic polyneuropathy; E78.00 Pure hypercholesterolemia, unspecified; E11.51 Type 2 diabetes mellitus with diabetic peripheral angiopathy without gangrene; F41.9 Anxiety disorder, unspecified; Z79.899 Other long term (current) drug therapy; Z88.0 Allergy status to penicillin; Z88.1 Allergy status to other antibiotic agents; Z88.8 Allergy status to other drugs, medicaments and biological substances; Z91.018 Allergy to other foods; Z91.040 Latex allergy status; Z88.5 Allergy status to narcotic agent; Z91.048 Other nonmedicinal substance allergy status; Z88.2 Allergy status to sulfonamides; Z79.84 Long term (current) use of oral hypoglycemic drugs; Z01.812 Encounter for preprocedural laboratory examination; Z20.828 Contact with and (suspected) exposure to other viral communicable diseases
CPT/HCPCS: 28899; 76000; 87635; 94640; J1885; J2001; J2250; J2405; J2704; J3010; J3370; J3490; J7040; J7120; 01480; C1713; C1769; U0002

== ENCOUNTER → 2023-04-07 | Day surgery (SDC) | payer MEDICAID ==
[~2023-04-07] MED LIST changes: -Albuterol 0.083% 2.5 MG/3 ML Neb Soln NEB ONE; +Bupivacaine 0.5% 10 ML SDV ONE; +HYDROmorphone 0.5 MG/0.5 ML Syringe IVPUSH PRN; -Ketorolac 30 MG/ML SDV ONE; +Lidocaine 1% 10 ML MDV ONE; +Lidocaine 1% 30 ML SDV ONE; -Lidocaine 1% 4 ML ONE; +Lidocaine 1% 5 ML VIAL ONE; -Lidocaine 1% 50 ML MDV ONE; -Lidocaine 1%/Sod Bicarbonate in NS 8.4% 1 ML Syringe IDERM PRN; +Naloxone 0.4 MG/ML SDV IVPUSH PRN; +Ondansetron 4 MG/2 ML SDV IVPUSH PRN; +Sodium Chloride 0.9% 10 ML Syringe FLUSH SCH; -Vancomycin 2 GM in Sodium Chloride 0.9% 500 ML IV ONE; +fentaNYL 100 MCG/2 ML SDV IVPUSH PRN; -fentaNYL 100 MCG/2 ML SDV ONE
[2023-04-07 16:46] VITALS: BP 122/78; PULSE 88
== END | disposition home or self-care (01) ==
LOC: JD.SDS 07:04
PROVIDERS: ATTEND Podiatrist Foot & Ankle Surgery
DX: M20.41 Other hammer toe(s) (acquired), right foot (principal); I10 Essential (primary) hypertension; E11.42 Type 2 diabetes mellitus with diabetic polyneuropathy; E11.51 Type 2 diabetes mellitus with diabetic peripheral angiopathy without gangrene; K21.9 Gastro-esophageal reflux disease without esophagitis; J44.9 Chronic obstructive pulmonary disease, unspecified; E66.9 Obesity, unspecified; Z68.41 Body mass index [BMI] 40.0-44.9, adult; E78.00 Pure hypercholesterolemia, unspecified; G47.30 Sleep apnea, unspecified; F17.210 Nicotine dependence, cigarettes, uncomplicated; Z79.4 Long term (current) use of insulin; Z79.85 Long-term (current) use of injectable non-insulin antidiabetic drugs; Z79.899 Other long term (current) drug therapy; Z88.0 Allergy status to penicillin; Z88.6 Allergy status to analgesic agent; Z91.040 Latex allergy status; Z88.8 Allergy status to other drugs, medicaments and biological substances; Z88.2 Allergy status to sulfonamides; Z91.018 Allergy to other foods
CPT/HCPCS: 28285; 76000; J0665; J2250; J2405; J2704; J3490; J7120

== ENCOUNTER 2025-03-12 06:45 | Day surgery (SDC) | payer MEDICAID ==
[~2025-03-12 06:45] MED LIST changes: -Bupivacaine 0.5% 10 ML SDV ONE; -Bupivacaine 0.5% 30 ML SDV ONE; -HYDROmorphone 0.5 MG/0.5 ML Syringe IVPUSH PRN; -Lactated Ringers 1,000 ML IV SCH; -Lidocaine 1% 10 ML MDV ONE; -Lidocaine 1% 30 ML SDV ONE; -Lidocaine 1% 5 ML VIAL ONE; -Midazolam 1 MG/ML 2 ML SDV ONE; -Naloxone 0.4 MG/ML SDV IVPUSH PRN; -Ondansetron 4 MG/2 ML SDV IVPUSH PRN; -Ondansetron 4 MG/2 ML SDV ONE; -Propofol 200 MG/20 ML SDV ONE; -fentaNYL 100 MCG/2 ML SDV IVPUSH PRN
[2025-03-12] MEDS: Lactated Ringers 1,000 ML IV SCH (06:45)
[2025-03-12] MEDS ORDERED: Midazolam 1 MG/ML 2 ML SDV ONE (07:31)
[2025-03-12] MEDS ORDERED: dexmedeTOMIDine HCl 200 MCG/2 ML SDV ONE (07:31)
[2025-03-12] MEDS ORDERED: propofoL 500 MG/50 ML 50 ML ONE (07:31)
[2025-03-12] MEDS ORDERED: Clindamycin Phosphate in D5W 900 MG in Premix Bag 1 BAG IV ONE (07:42)
[2025-03-12 10:30] VITALS: BP 122/78; PULSE 74
== END 2025-03-12 10:15 | disposition home or self-care (01) ==
LOC: JD.SDS 06:45
PROVIDERS: ATTEND Podiatrist Foot & Ankle Surgery
DX: G57.61 Lesion of plantar nerve, right lower limb (principal); E11.9 Type 2 diabetes mellitus without complications; I10 Essential (primary) hypertension; E78.5 Hyperlipidemia, unspecified; E66.9 Obesity, unspecified; Z88.8 Allergy status to other drugs, medicaments and biological substances; Z88.2 Allergy status to sulfonamides; Z79.4 Long term (current) use of insulin; Z87.891 Personal history of nicotine dependence; Z91.040 Latex allergy status; Z91.018 Allergy to other foods; Z79.899 Other long term (current) drug therapy
CPT/HCPCS: 28080; 82947; J0665; J0736; J2003; J2250; J2704; J7120

== ENCOUNTER 2025-03-20 11:26 | Emergency (ER) | payer MEDICAID ==
[2025-03-20] MEDS ORDERED: Sodium Chloride 0.9% 10 ML Syringe FLUSH PRN (11:56)
[2025-03-20] MEDS ORDERED: cefTRIAXone 2 GM in Water For Injection, Sterile 20 ML IVPUSH ONE (12:07)
[2025-03-20] MEDS: Ondansetron 4 MG/2 ML SDV IVPUSH ONE (12:16)
[2025-03-20 12:21] LABS: BASOPHILS ABSOLUTE AUTO 0.1 K/mm3 (0.0-0.2); BASOPHILS PERCENT AUTO 0.6 % (0.0-1.0); EOSINOPHILS ABSOLUTE AUTO 0.2 K/mm3 (0.0-0.4); EOSINOPHILS PERCENT AUTO 2.3 % (0.0-6.0); IMMATURE GRAN ABSOLUTE AUTO 0.05 K/mm3 (0.00-0.05); IMMATURE GRAN PERCENT AUTO 0.5 % (0.0-0.4); LYMPHOCYTES ABSOLUTE AUTO 3.3 K/mm3 (1.0-4.8); LYMPHOCYTES PERCENT AUTO 34.4 % (24.0-44.0); MEAN PLATELET VOLUME 10.2 fl (9.4-12.3); MONOCYTES ABSOLUTE AUTO 0.7 K/mm3 (0.0-0.8); MONOCYTES PERCENT AUTO 6.8 % (0.0-8.0); NEUTROPHILS ABSOLUTE AUTO 5.3 K/mm3 (1.8-7.7); NEUTROPHILS PERCENT AUTO 55.4 % (41.0-71.0); NRBC ABSOLUTE 0.00 (0.00-0.02); NRBC PERCENT 0.0 % (0.0-0.2); PLATELET COUNT,PLT 198 K/mm3 (150-400); RED BLOOD CELL COUNT 5.02 M/mm3 (4.10-5.30); WHITE BLOOD CELL COUNT,WBC 9.58 K/mm3 (3.9-11.3)
[2025-03-20] MEDS: cefTRIAXone 2 GM in Water For Injection, Sterile 20 ML IVPUSH ONE (12:21)
[2025-03-20 12:45] LABS: A/G RATIO 0.8 (1-2); ALANINE AMINOTRANSFERASE,ALT 46 U/L (14-59); ASPARTATE AMNIOTRANSFERASE,AST 29 U/L (15-37); BILIRUBIN TOTAL 0.4 mg/dL (0.2-1.0); BLOOD UREA NITROGEN,BUN 7 mg/dL (7-18); CARBON DIOXIDE,CO2 30 mEq/L (21-32); CHLORIDE,CL 105 mEq/L (98-107); CREATININE 0.6 mg/dL (0.55-1.02); ESTIMATED GFR 104 mL/min (>60); POTASSIUM,K 4.3 mEq/L (3.5-5.1); PROTEIN TOTAL,TP 8.0 g/dl (6.4-8.2); SODIUM,NA 143 mEq/L (136-145)
[2025-03-20 12:47] LABS: LACTIC ACID 1.3 mmol/L (0.4-2.0)
[2025-03-20 13:02] LABS: GLUCOSE RANDOM 100 mg/dL (70-99)
[2025-03-20 14:02] VITALS: BP 143/71; PULSE 71
== END 2025-03-20 13:50 | disposition home or self-care (01) ==
LOC: JD.ED 11:26
DX: T81.41XA Infection following a procedure, superficial incisional surgical site, initial encounter (principal); I10 Essential (primary) hypertension; E78.00 Pure hypercholesterolemia, unspecified; K21.9 Gastro-esophageal reflux disease without esophagitis; E11.9 Type 2 diabetes mellitus without complications; Z87.891 Personal history of nicotine dependence; Z91.041 Radiographic dye allergy status; Z88.6 Allergy status to analgesic agent; Z88.8 Allergy status to other drugs, medicaments and biological substances; Z91.030 Bee allergy status; Z88.1 Allergy status to other antibiotic agents; Z91.040 Latex allergy status; Z91.048 Other nonmedicinal substance allergy status; Z88.2 Allergy status to sulfonamides; Z88.5 Allergy status to narcotic agent; Z79.899 Other long term (current) drug therapy; Z79.85 Long-term (current) use of injectable non-insulin antidiabetic drugs
CPT/HCPCS: 36415; 80053; 83605; 85025; 85379; 86140; 93971; 96374; 96375; 96376; 99284; A4216; J0696; J1171; J2405